=== PATIENT | female | born 1955 | race Caucasian/White ===

== ENCOUNTER 2016-05-06 17:40 | Emergency (ER) | payer BC ==
[2016-05-06 17:55] VITALS: BP 122/83
--- NOTE | 2016-05-06 19:04 | RAD ---
INDICATION: Left hip pain COMPARISON: None TECHNIQUE: A single AP view of the pelvis is submitted. FINDINGS: Osseous structures: No acute fracture SI joints and symphysis: Intact Soft tissues: Normal Other: None IMPRESSION: A single view the pelvis demonstrate no acute fracture. If there is persistent concern suggest routine imaging of the left hip
--- NOTE | 2016-05-06 19:05 | RAD ---
INDICATION: Right knee pain. Fall. COMPARISON: None TECHNIQUE: AP, lateral, tunnel, and sunrise were obtained. FINDINGS: There is tricompartmental osteoarthritic change with spurring about all 3 joint space compartments and joint space narrowing. There is a minor valgus deformity. There is no joint effusion. IMPRESSION: MODERATE TRICOMPARTMENTAL OSTEOARTHRITIC CHANGE.
--- NOTE | 2016-05-06 19:07 | RAD ---
INDICATION: Back pain. Fall. COMPARISON: Lumbar spine November 12, 2007 TECHNIQUE: Routine PA, lateral, and oblique imaging was performed . FINDINGS: Bones: There are no acute bony findings. There are arthritic changes consisting of disc space narrowing at the lower 2 lumbar levels. There is mild progression. Alignment: Normal Disc spaces: The remaining disc spaces are well-maintained Soft tissues: There are no soft tissue abnormalities. IMPRESSION: DEGENERATIVE DISC DISEASE LOWER 2 LUMBAR LEVELS. NO ACUTE FINDINGS
[2016-05-06] MEDS ORDERED: Ketorolac INJ* 60 MG/2 ML VIAL IM ONE (19:12)
--- NOTE | 2016-05-06 19:25 | UC ---
UC General HPI - HPI Summary HPI Summary: YESTERDAY FELL BACKWARDS ON THE ICE; SINCE INJURY PAIN IN BACK, TOP OF LEFT HIP WELL IN RIGHT KNEE. NO BRUISING. NO LOSS OF CONTROL OF BLADDER OR BOWELS, HAD SWELLING IN RIGHT KNEE AFTER INJURY, BUT ABLE TO BEAR WEIGHT. NO HEAD OR NECK TRAUMA. - History of Current Complaint Chief Complaint: UCBackPain Stated Complaint: BACK INJURY Time Seen by Provider: 05/06/16 17:48 Hx Obtained From: Patient Onset/Duration: Sudden Onset, Lasting Hours, Worse Since - TODAY Onset Severity: Moderate Current Severity: Moderate Associated Signs & Symptoms: Positive: Back Pain. Negative: Confusion, Chest Pain, Diarrhea, Dysuria, Fever, Syncope - Allergy/Home Medications Allergies/Adverse Reactions: Allergies Allergy/AdvReac Type Severity Reaction Status Date / Time Sulfa Drugs Allergy Rash Verified 05/06/16 17:47 CT CONTRAST Allergy Vomiting Uncoded 05/06/16 17:47 Home Medications: Home Medications Ibuprofen [Advil] 400 mg PO Q6H PRN 05/06/16 [History Confirmed 05/06/16] Lisinopril [Zestril 10 MG-] 10 mg PO DAILY 05/06/16 [History Confirmed 05/06/16] PMH/Surg Hx/FS Hx/Imm Hx Previously Healthy: Yes Cardiovascular History Of: Reports: Hypertension Denies: Pacemaker/ICD Respiratory History Of: Denies: Asthma GI/ History Of: Denies: Renal Disease Psychological History Of: Reports: Depression Cancer History Of: Reports: Breast Cancer - BILATERAL - Surgical History Surgical History: Yes Surgery Procedure, Year, and Place: BILATERAL KNEE SURGERIES; meniscus tears. LT BREAST LUMPECTOMY. BROKEN FEMUR CHILD METAL TAKEN OUT. Rt SHOULDER - RCT - Family History Known Family History: Positive: Unknown - Social History Occupation: Employed Full-time Lives: With Family Alcohol Use: None Substance Use Type: None Smoking Status (MU): Former Smoker - Immunization History Most Recent Influenza Vaccination: none Review of Systems Constitutional: Negative Skin: Negative Eyes: Negative ENT: Negative Respiratory: Negative Cardiovascular: Negative Gastrointestinal: Negative Genitourinary: Negative Motor: Negative Neurovascular: Negative Musculoskeletal: Arthralgia, Myalgia Neurological: Negative Psychological: Negative All Other Systems Reviewed And Are Negative: Yes Physical Exam Triage Information Reviewed: Yes Appearance: Well-Appearing, No Pain Distress, Well-Nourished Vital Signs: Initial Vital Signs Temp 99.8 F 05/06/16 17:50 Pulse 87 05/06/16 17:50 Resp 16 05/06/16 17:50 BP 122/83 05/06/16 17:50 Pulse Ox 95 05/06/16 17:50 Vital Signs Reviewed: Yes Eye Exam: Normal ENT Exam: Normal ENT: Positive: Normal ENT inspection Dental Exam: Normal Neck exam: Normal Neck: Positive: Supple, Nontender, No Lymphadenopathy. Negative: Nuchal Rigidity, Tenderness @ Respiratory Exam: Normal Respiratory: Positive: Chest non-tender, Lungs clear, Normal breath sounds, No respiratory distress, No accessory muscle use Cardiovascular Exam: Normal Cardiovascular: Positive: RRR, No Murmur, Pulses Normal, Brisk Capillary Refill Abdominal Exam: Normal Abdomen Description: Positive: Nontender, No Organomegaly. Negative: CVA Tenderness (R), CVA Tenderness (L) Musculoskeletal: Positive: Edema @ - RIGHT KNEE, Other: - TENDERNESS AT PARASPINAL MUSCLES OF LSPINE AND LEFT ASIS OF HIP Neurological Exam: Normal Neurological: Positive: Alert, Muscle Tone Normal Psychological Exam: Normal Psychological: Positive: Normal Response To Family Skin Exam: Normal Course/Dx - Differential Dx - Multi-Symptom Differential Diagnoses: Other - TRAUMA, HIP FX, KNEE FRACTURE, LSPINE FRACTURE Provider Diagnoses: LOW BACK STRAIN/DEGENERATIVE DISC DISEASE. LEFT HIP CONTUSION. RIGHT KNEE OSTEOARTRITIS/SPRAIN Discharge - Discharge Plan Condition: Stable Disposition: HOME Prescriptions: Carisoprodol TAB* [Soma TAB*] 350 mg PO TID PRN #12 tab MDD three tabs PRN Reason: Spasms Patient Education Materials: Osteoarthritis (ED), Low Back Strain (ED), Contusion in Adults (ED), Knee Pain (ED), Hip Contusion (ED) Referrals: [facility] [Outside] Yung Ivy MD [Primary Care Provider] - Additional Instructions: PHYSICAL THERAPY REFERRAL: You have been prescribed physical therapy. Treatments may include stretching, exercise, application of heat or cold, and other modalities. After an injury, PT can reduce swelling and pain. In recovery, PT is used to restore mobility and strength. Your specific treatment goals are: ___x__ Reduction of Swelling (EGS, US, ice as needed) ___x__ Pain Reduction (EGS, US, ice as needed) ___x__ TENS Pack Fitting and Instruction Wound Hydrotherapy ___x__ Preservation of Mobility ___x__ Hindu of Mobility ___x__ Strength Hindu ___x__ Work or Sports Hardening This instruction sheet also serves as your PHYSICAL THERAPY REFERRAL! Please take it with you to the therapist, so he/she will be aware of your diagnosis and treatment plan. You may see the physical therapist of your choice for these treatments, but may wish to check with your insurance to be sure the provider you select is covered. It's important to see the doctor to whom you have been referred for follow up.
== END 2016-05-06 19:30 | disposition home or self-care (01) ==
LOC: UCEAST 17:40
DX: S39.012A Strain of muscle, fascia and tendon of lower back, initial encounter (principal); S70.02XA Contusion of left hip, initial encounter; S83.91XA Sprain of unspecified site of right knee, initial encounter; W00.0XXA Fall on same level due to ice and snow, initial encounter; Y93.9 Activity, unspecified; Y92.9 Unspecified place or not applicable; M51.36 Other intervertebral disc degeneration, lumbar region; M17.11 Unilateral primary osteoarthritis, right knee; I10 Essential (primary) hypertension; Z88.2 Allergy status to sulfonamides; Z91.041 Radiographic dye allergy status; Z87.891 Personal history of nicotine dependence
CPT/HCPCS: 72100; 72170; 96372; 99212; G0463; J1885

== ENCOUNTER 2017-07-24 19:56 | Emergency (ER) | payer BC ==
[2017-07-24] MEDS ORDERED: Ondansetron ODT TAB* 4 MG PO ONE (20:53)
[2017-07-24] MEDS ORDERED: Morphine VIAL* 4 MG/ML VIAL (1 ml vial) IV ONE (20:54)
--- NOTE | 2017-07-24 21:13 | RAD ---
HISTORY: Headache, brain thrombus COMPARISONS: MRI dated August 19, 2016 TECHNIQUE: Multiple contiguous axial CT scans were obtained of the head without intravenous contrast. FINDINGS: HEMORRHAGE/INFARCT: There is no hemorrhage or acute infarct. MASSES/SHIFT: There is no mass or shift. EXTRA-AXIAL SPACES: There are no extra-axial fluid collections. SULCI AND VENTRICLES: The sulci and ventricles are normal in size and position for the patient's stated age. CEREBRUM: There are no focal parenchymal abnormalities. BRAINSTEM: There are no focal parenchymal abnormalities. CEREBELLUM: There are no focal parenchymal abnormalities. VESSELS: The vessels are grossly normal. PARANASAL SINUSES: The paranasal sinuses are clear. ORBITS: The orbits are unremarkable. BONES AND SOFT TISSUE: No bone or soft tissue abnormalities are noted. OTHER: None IMPRESSION: NO ACUTE INTRACRANIAL PATHOLOGY.
[2017-07-24 21:39] LABS: ABS Basophils 0 10^3/ul (0-0.2); ABS Eosinophils 0 10^3/ul (0-0.6); ABS Monocytes 0.3 10^3/ul (0-0.8); ABS Neutrophils 4.2 10^3/ul (1.5-7.7); ABS Nucleated RBC 0 10^3/ul; Eosinophil % 0 % (0-6); Hematocrit 43 % (35-47); Hemoglobin 14.6 g/dl (12.0-16.0); Lymphocyte % 17.5 % (25-47); Mean Corpuscular HGB Conc 34 g/dl (31-36); Mean Corpuscular Hemoglobin 31 pg (27-31); Mean Corpuscular Volume 91 fL (80-97); Nucleated Red Blood Cells % 0.1; Platelet Count 145 10^3/ul (150-450); Red Blood Count 4.76 10^6/ul (4.0-5.4); Red Cell Distribution Width 14 % (10.5-15); White Blood Count 5.5 10^3/ul (3.5-10.8)
[2017-07-24 21:48] LABS: INR 1.08 (0.77-1.02)
[2017-07-24 21:54] LABS: EGFR Non-African American 79.3 (>60)
[2017-07-24] MEDS ORDERED: diPHENhydraMINE IV* 50 MG/ML 1 ml VIAL (BENADRYL) IV ONE (22:01)
[2017-07-24] MEDS ORDERED: Ketorolac INJ* 30 MG/ML 1 ML VIAL IV PUSH ONE (22:07)
--- NOTE | 2017-07-24 22:12 | ED ---
Headache - HPI Summary HPI Summary: 61-year-old female presents with headache 2 days. She states is similar to when she had a sinus venous thrombosis. She states this feels the same. She states this is the same intensity as the previous headache. She states she was on warfain for the clot but that she stopped in September. She also admits to low- grade fever. She denies any sinus congestion. No sore throat. no chest pain or SOB. no cough. She admits to nausea but no vomiting. No abdominal pain. She admits to generalized body aches. She has history of peripheral neuropathy. She denies any history of headaches. She denies any neck stiffness. She denies any neck pain. She states the headache is all over. She admits to severe photophobia. no change in vision. She did have a tick exposure a week ago but the tick was not engorged at that time. She has not taken anything for her fever. She takes chronic pain medication. - History Of Current Complaint Chief Complaint: EDHeadache Stated Complaint: SICKNESS/HEADACHE/FEVER Time Seen by Provider: 07/24/17 20:16 - Allergies/Home Medications Allergies/Adverse Reactions: Allergies Allergy/AdvReac Type Severity Reaction Status Date / Time iodine Allergy Rash Verified 07/24/17 20:03 Sulfa (Sulfonamide Allergy Rash Verified 07/24/17 20:03 Antibiotics) CT CONTRAST Allergy Vomiting Uncoded 08/15/16 19:30 Home Medications: Home Medications Ascorbic Acid TAB* [Vitamin C TAB*] 500 mg PO DAILY 07/24/17 [History Confirmed 07/24/17] Calcium Carbonate [Calcium] 500 mg PO DAILY 07/24/17 [History Confirmed 07/24/17 ] Cholecalciferol TAB* [Vitamin D TAB*] 1,000 unit PO DAILY 07/24/17 [History Confirmed 07/24/17] Cyanocobalamin TAB* [Vitamin B12 TAB*] 500 mcg PO DAILY 07/24/17 [History Confirmed 07/24/17] Cyclosporine 0.05% OPHTH (NF) [Restasis 0.05% OPHTH] 1 drop BOTH EYES BID [History Confirmed 07/24/17] DULoxetine DR CAP* [Cymbalta CAP*] 90 mg PO DAILY 07/24/17 [History Confirmed ] Gabapentin CAP(*) [Neurontin 300 CAP(*)] 600 mg PO DAILY 07/24/17 [History Confirmed 07/24/17] Omeprazole CAP* [Prilosec CAP* 20 MG] 20 mg PO BID 07/24/17 [History Confirmed 07/24/17] amLODIPine TAB* [Norvasc 5 mg TAB*] 2.5 mg PO DAILY 07/24/17 [History Confirmed 07/24/17] oxyCODONE TAB* [Roxycodone TAB 5 mg*] 5 - 10 mg PO Q4H PRN MDD 6 tablets [History Confirmed 07/24/17] PMH/Surg Hx/FS Hx/Imm Hx Endocrine/Hematology History: Reports: Hx Anticoagulant Therapy - not currently Cardiovascular History: Reports: Hx Hypertension Denies: Hx Pacemaker/ICD Respiratory History: Denies: Hx Asthma History: Denies: Hx Renal Disease Musculoskeletal History: Reports: Other Musculoskeletal History - bilat knee surgery Sensory History: Denies: Hx Cataracts, Hx Contacts or Glasses, Hx Hearing Aid Opthamlomology History: Denies: Hx Cataracts, Hx Contacts or Glasses Neurological History: Reports: Other Neuro Impairments/Disorders - peripheral neuropathy Psychiatric History: Reports: Hx Depression Denies: Hx Panic Disorder - Cancer History Cancer Type, Location and Year: Lt BREAST CARCINOMA 2002 & LUMPECTOMY Hx Chemotherapy: No - TAMAXOFIN ( NO LONGER TAKING) Hx Radiation Therapy: No - Surgical History Surgery Procedure, Year, and Place: BILATERAL KNEE SURGERIES; meniscus tears. LT BREAST LUMPECTOMY. BROKEN FEMUR CHILD METAL TAKEN OUT. Rt SHOULDER - RCT Infectious Disease History: No Infectious Disease History: Denies: Traveled Outside the [place] in Last 30 Days - Family History Known Family History: Positive: Unknown - Social History Alcohol Use: None Hx Substance Use: No Substance Use Type: Reports: Cocaine Hx Tobacco Use: Yes Smoking Status (MU): Former Smoker Review of Systems Positive: Fever, Chills, Fatigue Positive: Photophobia Negative: Chest Pain Negative: Shortness Of Breath Positive: Headache All Other Systems Reviewed And Are Negative: Yes Physical Exam Triage Information Reviewed: Yes Vital Signs On Initial Exam: Initial Vitals Temp Pulse Resp BP Pulse Ox 97.9 F 90 16 118/77 99 07/24/17 19:59 07/24/17 19:59 07/24/17 19:59 07/24/17 19:59 07/24/17 19:59 Vital Signs Reviewed: Yes Appearance: Positive: Pain Distress Skin: Positive: Warm, Dry Head/Face: Positive: Normal Head/Face Inspection Eyes: Positive: Normal, EOMI, FELIX, Conjunctiva Clear ENT: Positive: Normal ENT inspection, Pharynx normal, TMs normal Respiratory/Lung Sounds: Positive: Clear to Auscultation, Breath Sounds Present Cardiovascular: Positive: Normal, RRR Abdomen Description: Positive: Nontender, Soft Bowel Sounds: Positive: Present Musculoskeletal: Positive: Normal Neurological: Positive: Sensory/Motor Intact, Alert, Oriented to Person Place, Time, CN Intact II-III, Finger to Nose Psychiatric: Positive: Normal - Harmony Coma Scale Best Eye Response: 4 - Spontaneous Best Motor Response: 6 - Obeys Commands Best Verbal Response: 5 - Oriented Coma Scale Total: 15 Diagnostics - Vital Signs Vital Signs Temp Pulse Resp BP Pulse Ox 07/24/17 21:27 85 120/86 95 07/24/17 21:26 87 93 07/24/17 21:11 16 07/24/17 19:59 97.9 F 90 16 118/77 99 - Laboratory Lab Results: Lab Results 07/24/17 07/24/17 07/24/17 Range/Units 21:20 21:20 21:21 WBC 5.5 (3.5-10.8) 10^3/ul RBC 4.76 (4.0-5.4) 10^6/ul Hgb 14.6 (12.0-16.0) g/dl Hct 43 (35-47) % MCV 91 (80-97) fL MCH 31 (27-31) pg MCHC 34 (31-36) g/dl RDW 14 (10.5-15) % Plt Count 145 L (150-450) 10^3/ul MPV 8.0 (7.4-10.4) um3 Neut % (Auto) 76.3 (38-83) % Lymph % (Auto) 17.5 L (25-47) % [place] % (Auto) 5.6 (0-7) % Eos % (Auto) 0 (0-6) % Baso % (Auto) 0.6 (0-2) % Absolute Neuts (auto) 4.2 (1.5-7.7) 10^3/ul Absolute Lymphs (auto) 1.0 (1.0-4.8) 10^3/ul Absolute Monos (auto) 0.3 (0-0.8) 10^3/ul Absolute Eos (auto) 0 (0-0.6) 10^3/ul Absolute Basos (auto) 0 (0-0.2) 10^3/ul Absolute Nucleated RBC 0 10^3/ul Nucleated RBC % 0.1 INR (Anticoag Therapy) 1.08 H (0.77-1.02) APTT 40.5 H (26.0-36.3) seconds Sodium (139-145) mmol/L Potassium (3.5-5.0) mmol/L Chloride (101-111) mmol/L Carbon Dioxide (22-32) mmol/L Anion Gap (2-11) mmol/L BUN (6-24) mg/dL Creatinine (0.51-0.95) mg/dL Est GFR ( Amer) (>60) Est GFR (Non-Af Amer) (>60) BUN/Creatinine Ratio (8-20) Glucose (70-100) mg/dL Lactic Acid 1.4 (0.5-2.0) mmol/L Calcium (8.6-10.3) mg/dL Total Bilirubin (0.2-1.0) mg/dL AST (13-39) U/L ALT (7-52) U/L Alkaline Phosphatase (34-104) U/L C-Reactive Protein (< 5.00) mg/L Total Protein (6.4-8.9) g/dL Albumin (3.2-5.2) g/dL Globulin (2-4) g/dL Albumin/Globulin Ratio (1-3) Influenza A (Rapid) (Negative) Influenza B (Rapid) (Negative) 07/24/17 07/24/17 Range/Units 21:21 21:28 WBC (3.5-10.8) 10^3/ul RBC (4.0-5.4) 10^6/ul Hgb (12.0-16.0) g/dl Hct (35-47) % MCV (80-97) fL MCH (27-31) pg MCHC (31-36) g/dl RDW (10.5-15) % Plt Count (150-450) 10^3/ul MPV (7.4-10.4) um3 Neut % (Auto) (38-83) % Lymph % (Auto) (25-47) % [place] % (Auto) (0-7) % Eos % (Auto) (0-6) % Baso % (Auto) (0-2) % Absolute Neuts (auto) (1.5-7.7) 10^3/ul Absolute Lymphs (auto) (1.0-4.8) 10^3/ul Absolute Monos (auto) (0-0.8) 10^3/ul Absolute Eos (auto) (0-0.6) 10^3/ul Absolute Basos (auto) (0-0.2) 10^3/ul Absolute Nucleated RBC 10^3/ul Nucleated RBC % INR (Anticoag Therapy) (0.77-1.02) APTT (26.0-36.3) seconds Sodium 134 L (139-145) mmol/L Potassium 3.2 L (3.5-5.0) mmol/L Chloride 100 L (101-111) mmol/L Carbon Dioxide 26 (22-32) mmol/L Anion Gap 8 (2-11) mmol/L BUN 10 (6-24) mg/dL Creatinine 0.74 (0.51-0.95) mg/dL Est GFR ( Amer) 101.9 (>60) Est GFR (Non-Af Amer) 79.3 (>60) BUN/Creatinine Ratio 13.5 (8-20) Glucose 158 H (70-100) mg/dL Lactic Acid (0.5-2.0) mmol/L Calcium 9.0 (8.6-10.3) mg/dL Total Bilirubin 0.40 (0.2-1.0) mg/dL AST 18 (13-39) U/L ALT 12 (7-52) U/L Alkaline Phosphatase 57 (34-104) U/L C-Reactive Protein 18.20 H (< 5.00) mg/L Total Protein 6.3 L (6.4-8.9) g/dL Albumin 3.8 (3.2-5.2) g/dL Globulin 2.5 (2-4) g/dL Albumin/Globulin Ratio 1.5 (1-3) Influenza A (Rapid) Negative (Negative) Influenza B (Rapid) Negative (Negative) Result Diagrams: 07/24/17 21:21 07/24/17 21:21 Lab Statement: Any lab studies that have been ordered have been reviewed, and results considered in the medical decision making process. - Additional Comments Diagnostic Additional Comments: MRI no hemorrhage, mass or acute infarct. Normal flow void center of venous sinuses. Re-Evaluation - Re-Evaluation First Eval Re-Evaluation Time: 10:20 Change: Improved Comment: pain has decreased Headache Course/Dx - Course Course Of Treatment: 61-year-old female presents with headache 2 days. She states is similar to when she had a sinus venous thrombosis. She states this feels the same. She states this is the same intensity as the previous headache. She states she was on warfain for the clot but that she stopped in September. She also admits to low-grade fever. She denies any sinus congestion. No sore throat. no chest pain or SOB. no cough. She admits to nausea but no vomiting. No abdominal pain. She admits to generalized body aches. She has history of peripheral neuropathy. She denies any history of headaches. She denies any neck stiffness. She denies any neck pain. She states the headache is all over. She admits to severe photophobia. no change in vision. She did have a tick exposure a week ago but the tick was not engorged at that time. She has not taken anything for her fever. She takes chronic pain medication. On exam has normal neuro exam. CT brain normal. Lab work normal. Do not suspect meningitis has full range of motion of neck. We'll get MRV to rule out sinus thrombosis. Discussed case with Dr. Peralta. MRI normal. MRV normal. will send home to follow up with primary. will have return to ED if develop any neck stiffness. patient understand and agrees with plan. - Diagnoses Differential Diagnosis/HQI/PQRI: Migraine, Subarachnoid Hemorrhage, Tension Headache, Viral Syndrome Provider Diagnoses: Headache Discharge - Sign-Out/Discharge Documenting (check all that apply): Discharge/Admit/Transfer - Discharge Plan Condition: Good Disposition: HOME Patient Education Materials: General Headache (ED) Referrals: Yung Ivy MD [Primary Care Provider] - Additional Instructions: Take Tylenol or ibuprofen every 6 hours for headache Take zofran every 6 hours as needed for nausea Follow up with primary within 5 days Return to ED if develop neck stiffness or any new or worsening symptoms - Billing Disposition and Condition Condition: GOOD Disposition: HOME
[2017-07-25] MEDS ORDERED: NS 0.9% 1000 ML* 1,000 ML IV ONE
[2017-07-25] MEDS ORDERED: Morphine VIAL* 4 MG/ML VIAL (1 ml vial) IV ONE (00:52)
[2017-07-25] MEDS ORDERED: O ndansetron ODT 4MG 2TAB PRPK 4 MG PAK PO ONE (00:54)
[2017-07-25 01:57] VITALS: BP 98/66
--- NOTE | 2017-07-25 07:11 | RAD ---
INDICATION: Headache, history of sinus venous thrombosis. COMPARISON: Comparison is made with a prior MRI of the brain from August 19, [address] of the brain from July 24, 2017. TECHNIQUE: Sagittal T1, axial T1, T2, susceptibility, FLAIR and diffusion weighted images were obtained. FINDINGS: The ventricles, cisterns and sulci appear to be within normal limits. No significant focal abnormality or mass effect is seen. No areas of restricted diffusion are present. There is no evidence for infarct or hemorrhage. The dural venous sinuses appear patent. There is dolichoectasia of the basilar artery. The visualized portion of the paranasal sinuses and mastoid air cells appear clear. IMPRESSION: NO EVIDENCE FOR ACUTE INTRACRANIAL ABNORMALITY.
--- NOTE | 2017-07-25 07:43 | RAD ---
INDICATION: Headache, history of sinus venous thrombosis. COMPARISON: Comparison is made with a prior MRV study from August 19, 2016. TECHNIQUE: A magnetic resonance venogram of the brain was performed. Images were reconstructed in the maximum intensity projection format. FINDINGS: There appears to be an intraluminal filling defect present in the posterior aspect of the superior sagittal sinus as well as within the proximal adjacent right transverse sinus which appears unchanged from the prior study suggestive of thrombus within the sinuses without occlusion. The results of this exam were called to the emergency department charge nurse Negra. IMPRESSION: POSSIBLE NONOCCLUSIVE THROMBUS WITHIN THE POSTERIOR ASPECT OF THE SUPERIOR SAGITTAL SINUS AND ADJACENT RIGHT TRANSVERSE SINUS, UNCHANGED FROM THE PRIOR STUDY.
--- NOTE | 2017-07-25 08:56 | CONSULT ---
Consult Consult: Dr. 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 The original read was negative. I spoke with Dr. Umanzor who recommended a full strength aspirin a day and F/U with Dr. Umanzor this coming week. I called Ms. Bullard who was still suffering from a severe headache. I told her the plan and recommended that she also return to the ED so that I could try to get her better pain control. She is quite unhappy with the care so far and didn't want to return. She requested that I have Dr. Umanzor call and I passed on that request.
== END 2017-07-25 02:01 | disposition home or self-care (01) ==
LOC: ED 19:56
DX: R51 Headache (principal); R11.0 Nausea; R50.9 Fever, unspecified; R53.83 Other fatigue
CPT/HCPCS: 36415; 70450; 70544; 70551; 80053; 83605; 85025; 85610; 85730; 86140; 86618; 87040; 87502; 96374; 96375; 99284; 99285; A9270-GY; J1200; J1885; J2270

== ENCOUNTER 2017-07-25 10:02 | Observation (INO) | payer BC ==
[2017-07-25] MEDS ORDERED: Morphine VIAL* 4 MG/ML VIAL (1 ml vial) IV ONE (10:48)
[2017-07-25] MEDS: NS 0.9% 1000 ML* 2,000 ML IV ONE (11:04)
[2017-07-25 11:13] LABS: ABS Basophils 0 10^3/ul (0-0.2); ABS Eosinophils 0 10^3/ul (0-0.6); ABS Lymphocytes 0.6 10^3/ul (1.0-4.8); ABS Monocytes 0.3 10^3/ul (0-0.8); ABS Neutrophils 3.7 10^3/ul (1.5-7.7); ABS Nucleated RBC 0 10^3/ul; Eosinophil % 0.1 % (0-6); Hematocrit 43 % (35-47); Hemoglobin 14.3 g/dl (12.0-16.0); Lymphocyte % 13.9 % (25-47); Mean Corpuscular HGB Conc 34 g/dl (31-36); Mean Corpuscular Hemoglobin 30 pg (27-31); Mean Corpuscular Volume 90 fL (80-97); Mean Platelet Volume 8.1 um3 (7.4-10.4); Nucleated Red Blood Cells % 0; Platelet Count 112 10^3/ul (150-450); Red Blood Count 4.75 10^6/ul (4.0-5.4); Red Cell Distribution Width 14 % (10.5-15); White Blood Count 4.7 10^3/ul (3.5-10.8)
[2017-07-25 11:34] LABS: EGFR Non-African American 90.5 (>60)
[2017-07-25 11:35] LABS: INR 0.98 (0.77-1.02)
[2017-07-25] MEDS ORDERED: HYDROmorphone INJ* 2 MG/ML CARPUJECT SYRINGE IV SLOW PU ONE (11:55)
[2017-07-25] MEDS: HYDROmorphone INJ* 2 MG/ML CARPUJECT SYRINGE IV SLOW PU PRN ×2 (14:54→19:17)
[2017-07-25] MEDS ORDERED: Ondansetron ODT TAB* 4 MG SL PRN (15:02)
[2017-07-25] MEDS ORDERED: predniSONE TAB* 50 MG PO SCH (16:00)
[2017-07-25] MEDS ORDERED: predniSONE TAB* 50 MG PO ONE ×4 (16:00→22:00)
[2017-07-25] MEDS: Ketorolac INJ* 30 MG/ML 1 ML VIAL IV PUSH PRN ×2 (16:14→22:03)
--- NOTE | 2017-07-25 16:37 | CONS ---
CC: Dr. Ivy NEUROLOGY CONSULTATION: DATE OF CONSULT: 07/25/17 LOCATION: She is in the emergency room. REFERRING PROVIDER: Dr. Middleton. CHIEF COMPLAINT: Headache. HISTORY OF PRESENT ILLNESS: Clotilde Bullard is a 61-year-old woman, known to me from a prior evaluation in 2017 for a severe headache. I saw her in consultation on 08/18/16 when she presented with a fever, nausea and vomiting, and a bad headache. She had chills and sweats as well. She developed severe headache with photophobia and ended up coming into the emergency room. She had an MR venogram of the brain interpreted as showing a linear filling defect in the posterior portion of the superior sagittal sinus as well as in the right transverse sigmoid confluence. The interpretation was suggestive of a thrombus within the venous system without occlusion. She was treated for her headaches and started on Coumadin over the subsequent hospitalization. She had a workup for hypercoagulable state, which was notable for normal protein C, protein S, antithrombin III, negative Leiden factor V mutation, negative lupus anticoagulant. She was anticoagulated for 3 months with Coumadin and saw Dr. Juan Ramirez of stroke unit at the [facility] in August of 2016 and then 3 months later in November. She had an MR venogram at the [facility], which I was able to review the report that Dr. Middleton had obtained. It was interpreted as showing similar filling defect from the July 2016 study, but review of images suggested that it was an artifact rather than a cerebral vein thrombosis and so the final interpretation was no evidence of cerebral vein thrombosis. She saw Dr. Ramirez in followup after that and Coumadin was discontinued. She was fine until just the last few days. On , she started to feel a headache as she was out walking. It intensified through the course of the day such that by the evening she had photophobia and a pretty severe headache. She developed fever and chills the following day and had a temperature measured of 101. She was using a heating pad when it was 80 degrees out. The headache intensified and she had no appetite and has not had anything to eat for at least 3 days. She presented to the emergency room yesterday and had an MRI of the brain interpreted as normal. I reviewed the images and I agree. She had an MR venogram interpreted by the [facility] as normal, but interpreted by Dr. Fischer on review this morning as showing a filling defect unchanged from a year ago. The patient ended up presenting back to the emergency room today after she was informed of the change in read. She has noted a little bit of sore throat, but no vomiting. She has not had any runny nose. She denies back pain or neck stiffness. She has not been eating, but there has not been any diarrhea or vomiting. She has not been taking anything extra for her headaches at home, but she takes 6 tabs of oxycodone per day for her painful sensory neuropathy. She has received hydromorphone here and it diminishes the severity of her headache, but she is still very photophobic and is still pounding. She has not taken anything for nausea. PAST MEDICAL HISTORY: Notable for painful idiopathic sensory neuropathy. She has been followed by Dr. Mya for a number of years and been consulted at the [facility] as well. She had seen pain treatment specialists at [facility] as well and I believe they were trying to taper her off of opioids according to a consultation from Dr. Garcia up at the and Dr. May's in our office notes. She has a history of osteoporosis. She has a history of hypertension as well. MEDICATIONS: At home consist of: 1. Oxycodone 5 mg up to 6 tablets per day. 2. Amlodipine 2.5 mg p.o. q. day. 3. Omeprazole 20 mg p.o. q. day. 4. Gabapentin 600 mg p.o. q. day. 5. Cymbalta 90 mg p.o. q. day. 6. Vitamin B12 tablets 500 mcg p.o. q. day. 7. Vitamin D 1000 units p.o. q. day. 8. Fosamax 70 mg p.o. q. week. ALLERGIES: She is allergic to SULFA DRUGS. She is said to be allergic to CT CONTRAST with hives, but she said she just had vomiting. FAMILY HISTORY: Notable for both parents having had strokes. SOCIAL HISTORY: She is a retired teacher. REVIEW OF SYSTEMS: Notable for a remote history of migraines when she was a teenager. She has not had any headaches otherwise between this event and the one a year ago. She has not been exposed to any sick people that she is aware of. She occasionally subs as a teacher, but not in the past week. She is a nonsmoker. There is no history of cardiac disease, diabetes, or recent pulmonary problems. She has been drinking fluids, but not eating lately. She has not had any diarrhea or abdominal pain. PHYSICAL EXAMINATION: She is very photophobic, but alert and able to give a good coherent history. Temperature 98.1 orally, blood pressure running about 130 to 140 systolic over 80 to 86 diastolic, heart rate is in the 80s and regular. Respiratory rate is 16 and oxygen saturation is 96% on room air. Neck is supple. Lungs are clear bilaterally. Skin is warm and dry. Heart is in a regular rhythm without murmurs. There are no cervical bruits and no cervical adenopathy. Oral mucosa is moist and I do not see any erythema or trauma. Straight leg raising is negative. Neurological Exam: Pupils are small at about 2.5 mm, reacting to light to 2 mm. Funduscopic exam is done with a blue light and I could just see her left disc and it looked sharp. I could not get a good look at her right disc and again it was quite uncomfortable for her to be examined which limited the exam. There was no ptosis. Eye movements are full. Facial musculature is symmetric. Facial sensation is symmetric. Speech is clear. Motor exam reveals normal tone and strength in the limbs proximally and distally. There is no drift of any limbs. There is no tremor. Finger taps are normal in the hands. Sensory exam to vibration is intact in all limbs. Sensory exam to light touch is intact in the face and hands. Reflexes are hypoactive, but present other than absent ankle reflexes. Plantar responses are flexor bilaterally. I did not attempt to ambulate her. She is alert and oriented to person, place, and time. She has intact recent and remote memory. She has good attention, concentration, and fund of knowledge. Language is fluent. DIAGNOSTIC STUDIES/LAB DATA: Laboratory data includes the neuro imaging. Also CBC is notable for a platelet count of 112,000, which is low for her. It was 145,000 yesterday and 270,000 last year. Her white blood cell count is just 4.7. INR today is normal at 0.98, PTT at 35.8. Her hypercoagulation workup from 08/20/16 is in the chart and reviewed. Chemistry profile today notable for a sodium of 135 and potassium of 3.4 and otherwise is a normal chemistry profile. Liver enzymes are normal. BUN is 11 and creatinine 0.66. Her CRP was elevated yesterday at 18.2, it was borderline elevated in 2017 at 5.06. She had a negative influenza A and B rapid test yesterday. She had a negative prothrombin gene mutation back on 08/20/16. IMPRESSION AND PLAN: Impression is that of a possible cerebral vein thrombosis versus normal variant or artifact. It is nonocclusive on any of the images, so it seems unlikely that it is a cause of her severe headache. As of last year and this year, she has signs and symptoms suggestive of a probable viral infection and I think that is the more likely cause of her severe headache. I spoke with Dr. Middleton, who has consulted Stroke Neurology at the [facility]. The decision has been made to keep her here for a CT venogram. She needs to be premedicated because of her history of an allergy. Meanwhile, she should be kept hydrated and I would recommend treating her with antiplatelet therapy with aspirin alone at this point. She should be given adequate opioid analgesia to control her pain. She is almost certainly somewhat opioid tolerant from her treatment of her neuropathy at home. If the CT venogram does suggest an actual venous thrombus, then she will likely need anticoagulation again. I will follow her and await the results of her CT venogram and further discussion with [facility]. I have discussed my impression with Dr. Kelley as well as the patient and answered numerous questions for her and her friend, who accompanies her. [id number]/[facility] #: [id number] [place]
[2017-07-25] MEDS: Aspirin TAB* 325 MG PO SCH (16:40)
[2017-07-25] MEDS ORDERED: Iohexol 350* (CONTRAST) 500 ML MDV IV ONE (17:07)
[2017-07-25] MEDS: oxyCODONE/Acetamin 5/325 MG* TAB PO PRN ×2 (17:43→23:38)
--- NOTE | 2017-07-25 18:31 | HP ---
CC: Dr. Ivy * [facility] MEDICINE HISTORY AND PHYSICAL: DATE OF ADMISSION: 07/25/17 ATTENDING PHYSICIAN: Dr. Sabine Taylor * (dictation provided by Obdulia Vaughan NP ). CHIEF COMPLAINT: Headache. HISTORY OF PRESENT ILLNESS: Ms. Bullard is a 61-year-old female with a past medical history of suspected sinus venous thrombosis, hypertension, breast cancer, hyperlipidemia, anxiety and depression, who presents to the hospital today with new-onset headache. Ms. Bullard states that she last had severe headache back in July 2016, at which time she was evaluated here at our hospital and thought to have a sinus venous thrombosis. She ultimately went for evaluation at the [facility] where she was evaluated and treated with anticoagulants. The diagnosis was apparently not straightforward and there was suspicion that perhaps she had a postviral headache as she had a related fever and malaise. Regardless, she did receive treatment with anticoagulation and had a repeat MRV on 12/02/16 which showed no venous thrombosis. The patient states she has been well since then. She has had no severe headaches. On of this past week, she had the sudden onset again of a severe headache. She describes it as being involving her whole head. It was initially associated with a fever and malaise. The fever was as high as 101.2. The malaise and fever have gone away, but she continues to have this excruciating headache with photophobia. She states the headache is unremitting and that nothing has helped it prior to coming into the emergency room. She was evaluated last evening with an MRV of the head, which initially read by the overnight radiologist as showing no venous thrombo and she was discharged to home. However, in the morning the day radiologist, Dr. Fischer, thought that there was a possible nonocclusive thrombus within the posterior aspect of the superior sagittal sinus and adjacent right transverse sinus. For that reason, the patient was called back to the emergency room. The patient has been seen by Dr. Umanzor in the ED, who recommends that she have a CTA with venogram. However, the patient will require premedication for 13 hours prior to the study due to her history of IODINATED CONTRAST DYE allergy. Other than this, Ms. Bullard has had labs, which are unremarkable. She is requiring Dilaudid intermittently for pain, but states she would also be interested in trying Toradol as that had been helpful for her in the past. PAST MEDICAL HISTORY: 1. Hypertension. 2. Breast cancer, treated by Dr. Vasquez. 3. Hyperlipidemia. 4. Anxiety and depression. 5. Peripheral neuropathy. 6. GERD. 7. History of sinus venous thrombosis in 2017. MEDICATIONS: 1. Alendronate 70 mg p.o. daily. 2. Cyclosporine 0.05% ophthalmically 1 drop both eyes b.i.d. 3. Oxycodone 5 to 10 mg p.o. q.4 hours p.r.n. 4. Amlodipine 2.5 mg p.o. daily. 5. Ascorbic acid 500 mg p.o. daily. 6. Calcium carbonate 500 mg p.o. daily. 7. Cholecalciferol 1000 units p.o. daily. 8. Cyanocobalamin 500 mcg p.o. daily. 9. Duloxetine DR 90 mg p.o. daily. 10. Gabapentin 300 mg p.o. at bedtime. 11. Omeprazole 20 mg p.o. daily. ALLERGIES: To IODINE and SULFA. FAMILY HISTORY: Both parents related to CVA. SOCIAL HISTORY: No report of alcohol, tobacco or drug use. 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 REVIEW OF SYSTEMS: A 14-point review of systems was completed with Ms. Bullard and all those not mentioned above were negative. PHYSICAL EXAMINATION GENERAL: Ms. Bullard is lying in the bed in the dark with friend at the bedside. She is in no acute distress. VITAL SIGNS: Temperature 98.1, pulse rate 75, respiratory rate 15, blood pressure 130/84. LUNGS: Clear to auscultation bilaterally with no accessory muscle use and good aeration. HEART: S1, S2. No murmur, rub, or gallop and regular. ABDOMEN: Soft, nontender with bowel sounds positive x4. EXTREMITIES: No cyanosis or edema. NEURO: She is alert. She is oriented x3. She moves all extremities equally. There is no facial asymmetry or focal weakness. Extraocular movements are intact. Pupils are equal and reactive to light. SKIN: Intact. DIAGNOSTIC STUDIES/LAB DATA: Sodium 135, potassium 3.4, chloride 102, serum bicarbonate 26, BUN 11, creatinine 0.66, glucose 97. WBC 4.7, hemoglobin 14.3, hematocrit 43, platelet count 112. INR is 0.98. On 07/24/17, the patient had MRV of the head without contrast, which showed possible nonocclusive thrombus within the posterior aspect of the superior sagittal sinus and adjacent right transverse sinus unchanged from prior study, compared with the study from July 2016. ASSESSMENT AND PLAN: Ms. Bullard is a 61-year-old female with a past medical history of suspected sinus venous thrombosis, status post treatment with 3 months of anticoagulation as well as hypertension, breast cancer, hyperlipidemia , anxiety and depression, who presents to the hospital today with concern for return headache very similar to previous history with sinus venous thrombosis. Our plans are for observation in the hospital for the followin. Headache: Her headache from her perspective is very consistent with her previous history of suspected sinus venous thrombosis. The radiologist has read concern for possible thrombus in the sinuses again today. Dr. Umanzor has seen the patient in consultation. From his perspective, it is unclear whether that this represents an acute thrombus versus artifact. At this point, he recommends that the patient be anticoagulated only with aspirin 325 mg as he thinks that there is a low likelihood for thrombus. Given her associated viral type syndrome with the onset of this headache, it is again more likely to be a postviral syndrome headache. In terms of further workup for the sinus venous thrombosis, the patient will be going for a CT venogram of her head, but she will need premedication, which has been ordered with prednisone and Benadryl over the next 13 hours. In the meantime, the patient will have neurological checks q.2. She will have Dilaudid and Toradol for pain. 2. Hypertension. Continue amlodipine. 3. Gastroesophageal reflux disease. Continue omeprazole. 4. DVT prophylaxis with heparin subcu. 5. Code status is full code. TIME SPENT: Approximately 60 minutes were spent in the admission of this patient, more than half of the time was spent with the patient at the bedside reviewing the events leading up to this hospitalization, performing the physical examination and reviewing my plan of care. OBDULIA VAUGHAN, KEYONNA [id number]/[facility] #: [id number] [place]
[2017-07-25] MEDS ORDERED: amLODIPine TAB* 5 MG PO ONE (19:29)
[2017-07-25] MEDS: Heparin VIAL(*) 5000 UNITS/ML VIAL (FIVE THOUSAND) SUBCUT SCH (20:19)
[2017-07-25] MEDS ORDERED: NS 0.9% 1000 ML* 1,000 ML IV SCH (20:30)
[2017-07-25] MEDS ORDERED: Gabapentin CAP(*) 300 MG PO SCH (21:00)
--- NOTE | 2017-07-26 00:49 | ED ---
Alf Aden Tecjoon, scribed for Jeanette Middleton MD on 07/25/17 at 1053 . Headache - HPI Summary HPI Summary: This patient is a 61 year old female presenting to [facility] with a chief complaint of headache since approx. 2 days ago. Patient has seen Dr. Ramirez at [facility] 07/2016, and was taking Coumadin for a venous sinus thrombosis in the setting of influenza and dehydration. Patient also received an MRI/MRV at this time. Coumadin was DC'd 11/[address] Ramirez when pt had an MRV in [place] that was read as negative. Patient was seen last night for severe CHACKO, had an CT and MRI/MRV, and was dx with a nonocclusive thrombus on re-read of the MRV by Dr. Fischer this am. Pt had received morphine overnight and was DC'd home. Dr. Galaviz called the pt to check on her (see consult note from this am), and advised her of the re-read, and pt still had pain, so Dr. Galaviz advised the pt to return to the ED, so she represents at this time, still with headache. Dr. Galaviz also called Dr. Umanzor regarding the pt when he received the report from Dr. Fischer. The pain is described as the worst headache in the world. The pain is rated 10/10 in severity and does not radiate. Patient states that her pain is exactly the same as the last time she had her thrombosis. Symptoms aggravated by bright lights. Symptoms alleviated by nothing. Patient additionally reports blurry vision. Patient denies neck pain, numbness, tingling , or slurred speech. No fever. Influenza swab was negative last pm. Pt has chronic idiopathic peripheral neurpathy followed by Dr. May. She had a coagulation profile at 01/06/[address] Ivy that was negative. - History Of Current Complaint Chief Complaint: EDHeadache Stated Complaint: HEADACHE/DIZZINESS Time Seen by Provider: 07/25/17 10:12 Hx Obtained From: Patient, Other: - friend Martha is with pt Onset/Duration: Sudden Onset, Started days ago, Still Present Initially Headache Was: "Worst Headache Ever" Currently Pain Is: Current Pain Scale(0-10)= - 10, Severe Timing: Constant Character: Sharp Location of Headache: Diffuse Radiates to: N/A Aggravating Factor: Bright Lights Allevating Factors: Nothing Associated Signs And Symptoms: Negative - neck pain, numbness, tingling, or slurred speech, or fever, Other (Noted In Comments) - blurry vision Related History: Similar Episode/DX As: - sinus thrombosis last spring - Allergies/Home Medications Allergies/Adverse Reactions: Allergies Allergy/AdvReac Type Severity Reaction Status Date / Time iodine Allergy Rash Verified 07/24/17 20:03 Sulfa (Sulfonamide Allergy Rash Verified 07/24/17 20:03 Antibiotics) CT CONTRAST Allergy Vomiting Uncoded 08/15/16 19:30 Home Medications: Home Medications Alendronate (NF) [Fosamax (NF)] 70 mg PO WEEKLY 07/25/17 [History Confirmed 08/07] PMH/Surg Hx/FS Hx/Imm Hx Previously Healthy: No Endocrine/Hematology History: Reports: Hx Anticoagulant Therapy - was on warfarin 07/2016-11/2016, DC'd by Dr. Ramirez Cardiovascular History: Reports: Hx Hypertension Denies: Hx Pacemaker/ICD Respiratory History: Denies: Hx Asthma History: Denies: Hx Renal Disease Musculoskeletal History: Reports: Other Musculoskeletal History - bilat knee surgery Sensory History: Denies: Hx Cataracts, Hx Contacts or Glasses, Hx Hearing Aid Opthamlomology History: Denies: Hx Cataracts, Hx Contacts or Glasses Neurological History: Reports: Hx Peripheral Neuropathy Psychiatric History: Reports: Hx Depression Denies: Hx Panic Disorder - Cancer History Cancer Type, Location and Year: Lt BREAST CARCINOMA 2002 & LUMPECTOMY Hx Chemotherapy: No - TAMOXIFEN ( NO LONGER TAKING) Hx Radiation Therapy: No - Surgical History Surgery Procedure, Year, and Place: BILATERAL KNEE SURGERIES; meniscus tears. LT BREAST LUMPECTOMY. BROKEN FEMUR CHILD METAL TAKEN OUT. Rt SHOULDER - RCT Infectious Disease History: No Infectious Disease History: Denies: Traveled Outside the [place] in Last 30 Days - Family History Known Family History: Positive: Other - brain aneurysm in grandmother - Social History Alcohol Use: None Hx Substance Use: No Substance Use Type: Reports: None Hx Tobacco Use: Yes Smoking Status (MU): Former Smoker Review of Systems Negative: Fever Positive: Blurred Vision Cardiovascular: Negative Respiratory: Negative Gastrointestinal: Negative Musculoskeletal: Negative - neck pain Skin: Negative Positive: Headache. Negative: Paresthesia, Numbness, Slurred Speech Psychological: Normal All Other Systems Reviewed And Are Negative: Yes Physical Exam - Summary Physical Exam Summary: Appearance: Ill-appearing, moderate to severe pain distress, Well-nourished, afebrile Skin: Warm, color reflects adequate perfusion Head: Normal Head/Face inspection, atraumatic Eyes: Conjunctiva clear, photophobic, has mask covering eyes. Fundi: unable to visualize due to photophobia ENT: Normal inspection, pharynx clear Neck: Supple, no nodes, no JVD, good chin to chest Respiratory: Lungs clear, Normal breath sounds, no respiratory distress Cardio: RRR, No murmur, pulses normal, brisk capillary refill Abdomen: soft, nontender Bowel sounds: present Musculoskeletal: Strength Intact/ ROM intact. No calf tenderness. No edema. Psychological: Normal Neuro: Alert, CN II-XII intact, Motor 5/5 intact, Sensation decreased light touch bilat lower extremities, Reflexes 2+ symmetric, nl heel to cummings. NIH 0. GCS 15. Triage Information Reviewed: Yes Vital Signs On Initial Exam: Initial Vitals Temp Pulse Resp BP Pulse Ox 98.1 F 88 16 122/82 96 07/25/17 10:05 07/25/17 10:05 07/25/17 10:05 07/25/17 10:05 07/25/17 10:05 Vital Signs Reviewed: Yes Diagnostics - Vital Signs Vital Signs Temp Pulse Resp BP Pulse Ox 07/25/17 10:23 85 94 07/25/17 10:22 88 139/88 94 07/25/17 10:05 98.1 F 88 16 122/82 96 - Laboratory Lab Results: Lab Results 07/25/17 07/25/17 07/25/17 Range/Units 11:02 11:02 11:02 WBC 4.7 (3.5-10.8) 10^3/ul RBC 4.75 (4.0-5.4) 10^6/ul Hgb 14.3 (12.0-16.0) g/dl Hct 43 (35-47) % MCV 90 (80-97) fL MCH 30 (27-31) pg MCHC 34 (31-36) g/dl RDW 14 (10.5-15) % Plt Count 112 L (150-450) 10^3/ul MPV 8.1 (7.4-10.4) um3 Neut % (Auto) 79.3 (38-83) % Lymph % (Auto) 13.9 L (25-47) % [place] % (Auto) 5.9 (0-7) % Eos % (Auto) 0.1 (0-6) % Baso % (Auto) 0.8 (0-2) % Absolute Neuts (auto) 3.7 (1.5-7.7) 10^3/ul Absolute Lymphs (auto) 0.6 L (1.0-4.8) 10^3/ul Absolute Monos (auto) 0.3 (0-0.8) 10^3/ul Absolute Eos (auto) 0 (0-0.6) 10^3/ul Absolute Basos (auto) 0 (0-0.2) 10^3/ul Absolute Nucleated RBC 0 10^3/ul Nucleated RBC % 0 INR (Anticoag Therapy) 0.98 (0.77-1.02) APTT 35.8 (26.0-36.3) seconds Sodium 135 L (139-145) mmol/L Potassium 3.4 L (3.5-5.0) mmol/L Chloride 102 (101-111) mmol/L Carbon Dioxide 26 (22-32) mmol/L Anion Gap 7 (2-11) mmol/L BUN 11 (6-24) mg/dL Creatinine 0.66 (0.51-0.95) mg/dL Est GFR ( Amer) 116.3 (>60) Est GFR (Non-Af Amer) 90.5 (>60) BUN/Creatinine Ratio 16.7 (8-20) Glucose 97 (70-100) mg/dL Lactic Acid (0.5-2.0) mmol/L Calcium 9.3 (8.6-10.3) mg/dL Total Bilirubin 0.40 (0.2-1.0) mg/dL AST 25 (13-39) U/L ALT 16 (7-52) U/L Alkaline Phosphatase 67 (34-104) U/L Total Protein 5.9 L (6.4-8.9) g/dL Albumin 3.7 (3.2-5.2) g/dL Globulin 2.2 (2-4) g/dL Albumin/Globulin Ratio 1.7 (1-3) 05/05/18 Range/Units 11:02 WBC (3.5-10.8) 10^3/ul RBC (4.0-5.4) 10^6/ul Hgb (12.0-16.0) g/dl Hct (35-47) % MCV (80-97) fL MCH (27-31) pg MCHC (31-36) g/dl RDW (10.5-15) % Plt Count (150-450) 10^3/ul MPV (7.4-10.4) um3 Neut % (Auto) (38-83) % Lymph % (Auto) (25-47) % [place] % (Auto) (0-7) % Eos % (Auto) (0-6) % Baso % (Auto) (0-2) % Absolute Neuts (auto) (1.5-7.7) 10^3/ul Absolute Lymphs (auto) (1.0-4.8) 10^3/ul Absolute Monos (auto) (0-0.8) 10^3/ul Absolute Eos (auto) (0-0.6) 10^3/ul Absolute Basos (auto) (0-0.2) 10^3/ul Absolute Nucleated RBC 10^3/ul Nucleated RBC % INR (Anticoag Therapy) (0.77-1.02) APTT (26.0-36.3) seconds Sodium (139-145) mmol/L Potassium (3.5-5.0) mmol/L Chloride (101-111) mmol/L Carbon Dioxide (22-32) mmol/L Anion Gap (2-11) mmol/L BUN (6-24) mg/dL Creatinine (0.51-0.95) mg/dL Est GFR ( Amer) (>60) Est GFR (Non-Af Amer) (>60) BUN/Creatinine Ratio (8-20) Glucose (70-100) mg/dL Lactic Acid 0.8 (0.5-2.0) mmol/L Calcium (8.6-10.3) mg/dL Total Bilirubin (0.2-1.0) mg/dL AST (13-39) U/L ALT (7-52) U/L Alkaline Phosphatase (34-104) U/L Total Protein (6.4-8.9) g/dL Albumin (3.2-5.2) g/dL Globulin (2-4) g/dL Albumin/Globulin Ratio (1-3) Result Diagrams: 07/25/17 11:02 07/25/17 11:02 Lab Statement: Any lab studies that have been ordered have been reviewed, and results considered in the medical decision making process. - EKG 1132 Cardiac Rate: NL EKG Rhythm: Sinus Rhythm - [address] Segment: Non-Specific Ectopy: None EKG Interpretation: An EKG at 1132 reveals nml AVIVCT, nml QTc, and nml axis. EKG Comparison: Other - no prior to compare Re-Evaluation - Re-Evaluation First Eval Re-Evaluation Time: 11:16 Change: Worse Comment: Patient states she suddenly experienced a sharp shooting pain in the left side of her head, which radiated across to the right side a few minutes ago. The episode lasted a few seconds. Second Eval Re-Evaluation Time: 11:49 Change: Improved Comment: Patient states that she is feeling better after the morphine, but still in increased pain. Patient states that her pain is at a 8/10. Patient denies nausea. Informed patient about consultation with Dr. Lewis. Third Eval Re-Evaluation Time: 12:00 Change: Improved Comment: Patient states her pain has improved with Dilaudid. Fourth Eval Re-Evaluation Time: 14:12 Change: Improved Comment: Patient was informed of her treatment plan. Patient will be admitted and given 13 hour protocol to premedicate for IV contrast allergy, to receive CTA/CTV, and for pain control and neuro observation. Patient states that her pain is now down to a 6. Headache Course/Dx - Course Course Of Treatment: This patient is a 61 year old female presenting to [facility] with a chief complaint of continued headache, dx'd with nonocclusive venous sinus thrombus last pm on MRV on re-read of MRV this am. Advised by ED MD to return to ED when he called pt with this finding and pt reported continued CHACKO. Pt had prior dx venous sinus thrombosis on warfarin from 07/2016-11/2016, DC'd when MRV was "negative" in 11/2016. Patient is allergic to sulfa drugs and IV contrast dye. An EKG, taken 1132, reveals NSR (75 BPM), normal AVIVCT, normal QTc, and normal axis. nonspecific ST. Bloodwork Obtained. Urinalysis Obtained. Test results with no significant abnormalities. In the ED course the patient was given IV fluids, morphine, dilaudid. Allergies noted. Patient medications reviewed this visit. We discussed patient care with Dr. Ivy (PCP) at 1126 and he confirmed that the patient received an MRV in [place] the Nov 2016 that showed resolution of the thrombosis. The patients neurologist at [place] was Dr. Ramirez. We discussed patient care with Dr. Umanzor ( Neurologist) at 1130 and he stated that he would come to see the patient. We discussed patient care with [facility] at 1136 and she stated she will call Dr. Lewis (Neurologist). We discussed patient care with Dr. Lewis (Neurologist) at 1257 and he asked to order a CTA and CT Venogram. Dr. Lewis was able to review actual films of the MRV's done in 07/2016 ([facility]), 11/2016 ( [place]) and 07/24/2016 at [facility]. We discussed patient care with Dr. Fischer at 1316 and they recommended 13 hour protocol pretreatment for IV contrast allergy to obtain the CTA/CTV. The CTV should eliminate the evidence of any artifact. We discussed patient care with Dr. Umanzor (Neurologist) at 1351 and he recommended admitting the patient to the hospitalist. We discussed patient care with Dr. Taylor (Hospitalist) at 1401 and she agreed to admit the patient. Patient will be admitted with a dx of cephalgia, eval for venous sinus thrombosis. The patient is agreeable with this plan. - Diagnoses Differential Diagnosis/HQI/PQRI: Migraine, Sinus Headache, Other - venous sinus thrombosis, viral meningitis Provider Diagnoses: Cephalgia, Cerebral venous sinus thrombosis - Physician Notifications Discussed Care Of Patient With: Yung Ivy - PCP Time Discussed With Above Provider: 11:26 - We discussed patient care with Dr. Ivy (PCP) at 1126 and he confirmed that the patient received an MRI in Nov 2016 that showed resolution of the thrombosis. The patients neurologist at [place] was Dr. Ramirez. Instructed by Provider To: Admit As Inpatient - We discussed patient care with Dr. Umanzor (Neurologist) at 1351 and he recommended admitting the patient to the hospitalist. We discussed patient care with Dr. Taylor (Hospitalist) at 1401 and she agreed to admit the patient. Discharge - Sign-Out/Discharge Documenting (check all that apply): Discharge/Admit/Transfer - Discharge Plan Condition: Stable Disposition: ADMITTED TO [facility] - Billing Disposition and Condition Condition: STABLE Disposition: HOSP-[facility] Consult Consult: We discussed patient care with Dr. Umanzor (Neurologist) 1130 and he stated that he would come to see the patient and advised admission to [facility] after discussion with Dr. Lewis and exam and review of imaging. We discussed patient care with [facility] at 1136 and she stated she will call Dr. Lewis (Neurologist). We discussed patient care with Dr. Lewis (Neurologist) at 1257 and he asked to order a CTA and CT Venogram and discussed care with Dr. Umanzor We discussed patient care with Dr. Fischer at 1316 and he recommended 13 hour protocol pretreatment for contrast allergy; The documentation as recorded by the Alf hall Tecjoon accurately reflects the service I personally performed and the decisions made by , Jeanette Middleton MD.
[2017-07-26] MEDS: HYDROmorphone INJ* 2 MG/ML CARPUJECT SYRINGE IV SLOW PU PRN ×3 (02:25→13:07)
[2017-07-26] MEDS ORDERED: predniSONE TAB* 50 MG PO ONE ×2 (04:00→16:00)
[2017-07-26] MEDS ORDERED: diPHENhydraMINE PO* 50 MG PO ONE (04:00)
[2017-07-26] MEDS: Ketorolac INJ* 30 MG/ML 1 ML VIAL IV PUSH PRN ×2 (05:40→11:42)
[2017-07-26] MEDS: oxyCODONE/Acetamin 5/325 MG* TAB PO PRN ×2 (05:40→11:42)
[2017-07-26] MEDS: Heparin VIAL(*) 5000 UNITS/ML VIAL (FIVE THOUSAND) SUBCUT SCH ×2 (05:41→12:18)
[2017-07-26 08:39] VITALS: BP 100/63
--- NOTE | 2017-07-26 08:43 | RAD ---
INDICATION: Headache, possible venous sinus thrombosis. COMPARISON: Comparison is made with prior MRI and MRV studies of the brain from August 19, 2016 and July 24, 2017. TECHNIQUE: A CT angiogram and venogram of the head was performed following intravenous injection of 80 ml of Omnipaque 350 nonionic contrast. Contiguous axial sections were obtained from the skull base through the vertex. Images were reconstructed in the coronal and sagittal planes and in a 3-D volume rendered format. FINDINGS: CTA BRAIN: The internal carotid, anterior and middle cerebral arteries appear patent without evidence for significant stenosis or occlusion. The vertebral, basilar and posterior cerebral arteries appear patent without evidence for significant stenosis or occlusion. There is a dominant left vertebral artery and dolichoectasia of the basilar artery. No aneurysm or vascular malformation is seen. The intraluminal filling defects noted in the superior sagittal and right transverse sinus on the prior MRI study are likely related to flow artifacts. IMPRESSION: 1. NO EVIDENCE FOR ANEURYSM OR VENOUS SINUS THROMBOSIS. 2. DOLICHOECTASIA OF THE BASILAR ARTERY.
[2017-07-26] MEDS: Aspirin TAB* 325 MG PO SCH (08:48)
[2017-07-26] MEDS ORDERED: Calcium Carbonate TAB* 1250 MG (CALCIUM 500 MG) PO SCH (09:00)
[2017-07-26] MEDS ORDERED: Cyanocobalamin TAB* 500 MCG PO SCH (09:00)
[2017-07-26] MEDS ORDERED: DULoxetine DR CAP* 30 MG CAP.DR PO SCH (09:00)
[2017-07-26] MEDS ORDERED: Ascorbic Acid TAB* 500 MG PO SCH (09:00)
[2017-07-26] MEDS ORDERED: Omeprazole CAP* 20 MG PO SCH (09:00)
[2017-07-26] MEDS ORDERED: amLODIPine TAB* 5 MG PO SCH (09:00)
[2017-07-26] MEDS ORDERED: Cholecalciferol TAB* 1000 UNITS PO SCH (09:00)
--- NOTE | 2017-07-26 09:37 | PN ---
Subjective Date of Service: 07/26/17 Interval History: Pain is better this am although persists. She has had no new symptoms overnight. She has been taking pain meds for pain control. She is ok going home today but is concerned about the pain at home. She does have pain medication at home. Had an episode of mild bradycardia last night, no intervention. Blood pressure have been stable. No new issues. CTA: No evidence of vascular malformation, venous thrombosis. Dolichoectasia of the basilar artery noted Objective Active Medications: Amlodipine Besylate (Norvasc Tab*) 2.5 mg PO DAILY [facility] Last Admin: 07/26/17 08:56 Dose: Not Given Ascorbic Acid (Vitamin C Tab*) 500 mg PO DAILY [facility] Last Admin: 07/26/17 08:48 Dose: 500 mg Aspirin (Aspirin Tab*) 325 mg PO DAILY [facility] Last Admin: 07/26/17 08:48 Dose: 325 mg Calcium Carbonate (Calcium Carbonate Tab*) 500 mg PO DAILY [facility] Last Admin: 07/26/17 08:48 Dose: 500 mg Cholecalciferol (Vitamin D Tab*) 1,000 units PO DAILY [facility] Last Admin: 07/26/17 08:48 Dose: 1,000 units Cyanocobalamin (Vitamin B12 Tab*) 500 mcg PO DAILY [facility] Last Admin: 07/26/17 08:48 Dose: 500 mcg Duloxetine HCl (Cymbalta Cap*) 90 mg PO DAILY [facility] Last Admin: 07/26/17 08:47 Dose: 90 mg Gabapentin (Neurontin Cap(*)) 300 mg PO BEDTIME [facility] Last Admin: 07/25/17 20:19 Dose: 300 mg Heparin Sodium (Porcine) (Heparin Vial(*)) 5,000 units SUBCUT Q8HR [facility] Last Admin: 07/26/17 05:41 Dose: 5,000 units Hydromorphone HCl (Dilaudid Inj*) 1 mg IV SLOW PU Q4H PRN PRN Reason: PAIN Last Admin: 07/26/17 08:47 Dose: 1 mg Ketorolac Tromethamine (Toradol Inj*) 30 mg IV PUSH Q6H PRN PRN Reason: PAIN Last Admin: 07/26/17 05:40 Dose: 30 mg Omeprazole (Prilosec Cap*) 20 mg PO DAILY [facility] Last Admin: 07/26/17 08:48 Dose: 20 mg Ondansetron HCl (Zofran Odt Tab*) 4 mg SL Q6H PRN PRN Reason: NAUSEA/VOMITING Oxycodone/Acetaminophen (Percocet 5/325 Tab*) 2 tab PO Q6H PRN PRN Reason: PAIN Last Admin: 07/26/17 05:40 Dose: 2 tab Vital Signs 07/25/17 07/25/17 07/25/17 14:52 14:54 15:00 Temperature Pulse Rate Respiratory 12 17 19 Rate Blood Pressure 132/92 (mmHg) O2 Sat by Pulse Oximetry 07/25/17 07/25/17 07/25/17 15:22 15:52 16:00 Temperature Pulse Rate Respiratory 15 17 17 Rate Blood Pressure 143/89 154/95 (mmHg) O2 Sat by Pulse Oximetry 07/25/17 07/25/17 07/25/17 16:22 16:30 17:04 Temperature 99.0 F 97.9 F Pulse Rate 87 Respiratory 22 20 Rate Blood Pressure 156/100 135/80 (mmHg) O2 Sat by Pulse 94 Oximetry 07/25/17 07/25/17 07/25/17 17:43 19:17 20:04 Temperature 98.9 F Pulse Rate 91 Respiratory 20 16 16 Rate Blood Pressure 131/69 (mmHg) O2 Sat by Pulse 93 Oximetry 07/25/17 07/25/17 07/25/17 20:19 21:30 22:51 Temperature Pulse Rate Respiratory 18 18 18 Rate Blood Pressure (mmHg) O2 Sat by Pulse Oximetry 07/25/17 07/25/17 07/26/17 23:38 23:50 02:25 Temperature Pulse Rate 69 Respiratory 16 16 18 Rate Blood Pressure 119/68 (mmHg) O2 Sat by Pulse 94 Oximetry 07/26/17 07/26/17 07/26/17 03:00 03:49 03:55 Temperature 97.4 F Pulse Rate 52 Respiratory 18 14 18 Rate Blood Pressure 93/56 (mmHg) O2 Sat by Pulse 95 Oximetry 07/26/17 07/26/17 07/26/17 03:58 05:40 07:58 Temperature 97.3 F Pulse Rate 60 Respiratory 18 18 18 Rate Blood Pressure 100/63 (mmHg) O2 Sat by Pulse 93 Oximetry 07/26/17 07/26/17 08:47 08:56 Temperature Pulse Rate Respiratory 16 16 Rate Blood Pressure (mmHg) O2 Sat by Pulse Oximetry Oxygen Devices in Use Now: None Neurology Exam: General: HEENT: Normocephalic/atraumatic, sclera anicteric, mucous membranes moist Chest: Clear to auscultation bilaterally Cardiovascular: Regular rate and rhythm without murmurs, rubs, gallops Abdomen: Soft, nontender/nondistended Extremities: No clubbing, cyanosis, or edema Neurological Findings: Awake, Alert, Oriented x3 Speech: fluent without dysarthric, repetition intact Cranial Nerve: PEERL, EOM intact, VFF, no nystagmus, face symmetric bilaterally , facial sensation intact, hearing intact, palate elevates symmetrically, tongue midline Motor: Moving all extremities antigravity with good resistance, no focal weakness Sensation: grossly intact to LT throughout, paresthesias of the feet bilaterally Deep Tendon Reflex: 2+ symmetric in the upper/lower extremities, Babinski - down going Finger to nose, rapid alternating movements intact, mild intention tremor Gait: intact with good arm swing and stride Result Diagrams: 07/25/17 11:02 07/25/17 11:02 Additional Lab and Data: Lab Results 07/25/17 07/25/17 07/25/17 Range/Units 11:02 11:02 11:02 WBC 4.7 (3.5-10.8) 10^3/ul RBC 4.75 (4.0-5.4) 10^6/ul Hgb 14.3 (12.0-16.0) g/dl Hct 43 (35-47) % MCV 90 (80-97) fL MCH 30 (27-31) pg MCHC 34 (31-36) g/dl RDW 14 (10.5-15) % Plt Count 112 L (150-450) 10^3/ul MPV 8.1 (7.4-10.4) um3 Neut % (Auto) 79.3 (38-83) % Lymph % (Auto) 13.9 L (25-47) % Sac % (Auto) 5.9 (0-7) % Eos % (Auto) 0.1 (0-6) % Baso % (Auto) 0.8 (0-2) % Absolute Neuts (auto) 3.7 (1.5-7.7) 10^3/ul Absolute Lymphs (auto) 0.6 L (1.0-4.8) 10^3/ul Absolute Monos (auto) 0.3 (0-0.8) 10^3/ul Absolute Eos (auto) 0 (0-0.6) 10^3/ul Absolute Basos (auto) 0 (0-0.2) 10^3/ul Absolute Nucleated RBC 0 10^3/ul Nucleated RBC % 0 INR (Anticoag Therapy) 0.98 (0.77-1.02) APTT 35.8 (26.0-36.3) seconds Sodium 135 L (139-145) mmol/L Potassium 3.4 L (3.5-5.0) mmol/L Chloride 102 (101-111) mmol/L Carbon Dioxide 26 (22-32) mmol/L Anion Gap 7 (2-11) mmol/L BUN 11 (6-24) mg/dL Creatinine 0.66 (0.51-0.95) mg/dL Est GFR ( Amer) 116.3 (>60) Est GFR (Non-Af Amer) 90.5 (>60) BUN/Creatinine Ratio 16.7 (8-20) Glucose 97 (70-100) mg/dL Lactic Acid (0.5-2.0) mmol/L Calcium 9.3 (8.6-10.3) mg/dL Total Bilirubin 0.40 (0.2-1.0) mg/dL AST 25 (13-39) U/L ALT 16 (7-52) U/L Alkaline Phosphatase 67 (34-104) U/L Total Protein 5.9 L (6.4-8.9) g/dL Albumin 3.7 (3.2-5.2) g/dL Globulin 2.2 (2-4) g/dL Albumin/Globulin Ratio 1.7 (1-3) // Range/Units 11:02 WBC (3.5-10.8) 10^3/ul RBC (4.0-5.4) 10^6/ul Hgb (12.0-16.0) g/dl Hct (35-47) % MCV (80-97) fL MCH (27-31) pg MCHC (31-36) g/dl RDW (10.5-15) % Plt Count (150-450) 10^3/ul MPV (7.4-10.4) um3 Neut % (Auto) (38-83) % Lymph % (Auto) (25-47) % Sac % (Auto) (0-7) % Eos % (Auto) (0-6) % Baso % (Auto) (0-2) % Absolute Neuts (auto) (1.5-7.7) 10^3/ul Absolute Lymphs (auto) (1.0-4.8) 10^3/ul Absolute Monos (auto) (0-0.8) 10^3/ul Absolute Eos (auto) (0-0.6) 10^3/ul Absolute Basos (auto) (0-0.2) 10^3/ul Absolute Nucleated RBC 10^3/ul Nucleated RBC % INR (Anticoag Therapy) (0.77-1.02) APTT (26.0-36.3) seconds Sodium (139-145) mmol/L Potassium (3.5-5.0) mmol/L Chloride (101-111) mmol/L Carbon Dioxide (22-32) mmol/L Anion Gap (2-11) mmol/L BUN (6-24) mg/dL Creatinine (0.51-0.95) mg/dL Est GFR ( Amer) (>60) Est GFR (Non-Af Amer) (>60) BUN/Creatinine Ratio (8-20) Glucose (70-100) mg/dL Lactic Acid 0.8 (0.5-2.0) mmol/L Calcium (8.6-10.3) mg/dL Total Bilirubin (0.2-1.0) mg/dL AST (13-39) U/L ALT (7-52) U/L Alkaline Phosphatase (34-104) U/L Total Protein (6.4-8.9) g/dL Albumin (3.2-5.2) g/dL Globulin (2-4) g/dL Albumin/Globulin Ratio (1-3) Microbiology and Other Data: Microbiology 07/26/17 08:50 Influenza Types A,B Antigen ([place]) - Final Nasal Specimen received for Influenza A/B Molecular testing Assessment/Plan 61 year old with prior history of possible Venous sinus thrombosus, previously on Coumadin but follow up with [place] showed resolution and she was taken off Coumadin. Remains on ASA. Hypercoaguable workup reported negative. Presented with severe headache. Initial MRV on ER presentation showed possible , non-occlusive venous thrombus but CTV shows no evidence. 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 Suspect a viral prodrome. She has a history of neuropathy as well which is stable 1. No evidence of venous thrombosis. OK to D/C home from neurology standpoint with some pain med for home pain control. Defer to primary regarding timing of d/c. 2. Would continue ASA, Blood pressure control as outpatient. 3. Dolichectasia is typically treated with blood pressure control. Typically, can cause some cranial nerve issues, she has none and I do not think this is clinically relevant. Something we will follow as outpatient. 4. Return to ER with worsening headache 5. Plan for follow up in my clinic for continued CHACKO control and treatment of her neuropathy.
[2017-07-26] MEDS ORDERED: Potassium Chloride LIQUID* 20 MEQ PACKET PO ONE (09:46)
[2017-07-26 12:11] LABS: Urine Appearance Clear; Urine Blood Negative (Negative); Urine Color Yellow; Urine Ketones Negative (Negative); Urine Protein 1+(30 mg/dL) (Negative); Urine Specific Gravity > 1.060 (1.010-1.030); Urine Urobilinogen Negative (Negative)
--- NOTE | 2017-07-27 01:24 | DS ---
CC: Dr. Ivy; Pranav Trinh MD * DISCHARGE SUMMARY: DATE OF ADMISSION: 07/25/17 DATE OF DISCHARGE: 07/26/17 PRIMARY CARE PROVIDER: Dr. Ivy. MY ATTENDING WHILE IN THE HOSPITAL: Emelyn Ramírez MD * (DICTATED BY ALEX DAILY) OUTPATIENT NEUROLOGIST: Pranav Trinh MD PRIMARY DISCHARGE DIAGNOSIS: Headache. SECONDARY DISCHARGE DIAGNOSIS: 1. Hypertension. 2. Breast cancer. 3. Hyperlipidemia. 4. Anxiety and depression. 5. Painful peripheral neuropathy. 6. Gastroesophageal reflux disease. 7. Suspected treatment for venous sinus thrombosis in 2017, deemed to be artifact on repeat evaluation with a CT scan. STUDIES DONE WHILE IN THE HOSPITAL: 1. Head CTA from 07/26/17 read as no evidence for aneurysm or venous sinus thrombosis, dolichoectasia of the basilar artery. 2. Electrocardiogram from 07/25/17 read as no sinus rhythm, no axis, rate of 75 , QTC of 453. No ST segment abnormalities or other abnormalities. No blocks or hypertrophy. No studies to compare. MEDICATIONS AT DISCHARGE: 1. Gabapentin 300 mg p.o. at bedtime. 2. Vitamin B12, 500 mcg p.o. daily. 3. Vitamin D 1000 units p.o. daily. 4. Calcium carbonate 500 mg p.o. daily. 5. Ascorbic acid 500 mg p.o. daily. 6. Amlodipine 2.5 mg p.o. daily. 7. Cymbalta 90 mg p.o. daily. 8. Cyclosporin 1 drop both eyes b.i.d. 9. Oxycodone 5 to 10 mg p.o. q.4 hours as needed. 10. Omeprazole 20 mg p.o. daily. 11. Alendronate 70 mg p.o. weekly. 12. Aspirin 325 mg p.o. daily. 13. Ketorolac 10 mg p.o. q.6 hours as needed for pain. 14. Zofran 4 mg sublingually q.6 hours as needed for nausea. 15. Dilaudid 4 mg p.o. q.6 hours as needed. 16. Tylenol 625 mg p.o. q.4 hours as needed. New medications at discharge: 1. Aspirin, to be started in 5 days. 2. Toradol, 5 days' worth. 3. Zofran. 4. Dilaudid. 5. Tylenol. Medications discontinued on discharge, none. HOSPITAL COURSE: This is a brief summary of the patient's presentation. For more details, please see the history and physical from Obdulia Vaughan NP, from 08/07 as well as the consultation by Dr. Hi Umanzor on 07/25/17, as well as the ED provider report from Dr. Jeanette Middleton on 07/25/17. In brief, the patient is a 61- year-old female with past medical history significant for the above who presented to the emergency department in the evening of 07/24/17, had a head MRI, brain MRI, and brain CT which were all read as normal. Initially, however, the MR venogram of the head was over read by the neurologist in the morning who thought there was a possible non-occlusive thrombus in the posterior artifact of the superior sagittal sinus and the patient was brought back to the emergency department and then to the hospital for a repeat CTA of the head. The patient was seen in consultation by Dr. Umanzor. The patient had had fevers, chills, and malaise with this. This was a similar presentation to what she had had in July 2016, and she was thought to have a venous sinus thrombosis. She went to [facility] and treated with anticoagulants. The patient had a repeat MRV on 11/22/16 that showed no venous thrombosis and it was believed that the initial read may have been due to artifact. The patient was stopped on heparin. The patient had fevers and malaise and a headache this time as well. The malaise and fever have gone away , but she continued to have excruciating headache with photophobia. The patient was treated with significant pain medications including IV Dilaudid, Percocet, IV Toradol while in the emergency department as she was admitted, which helped significantly with her headache, bringing it from a 10/10 to 5. The photophobia also decreased and the headache seemed to improve by itself. Over the course of her hospitalization, the patient was treated with prednisone and Benadryl due to her allergies to IODINATED CONTRAST and had repeat CTA in the morning of 07/26/17, which was read as above. She was seen in consultation by Dr. Hi Umanzor initially, who recommended aspirin for anticoagulation and CT venogram of her head. The patient was put on a PPI for seizure prophylaxis. The patient had a CTA of her head which was normal. The patient's headache diminished as above. The patient had low potassium which was corrected. No other laboratory abnormalities. The patient was seen in consultation by Dr. Pranav Trinh of Neurology. He recommended continuing aspirin, monitoring the dolichoectasia, and continuing outpatient blood pressure control. Anticoagulation outside of aspirin was not recommended. The patient was stable and amenable to discharge to home on 07/26/17 with her home oxycodone, Dilaudid , and Toradol for pain control as needed. PHYSICAL EXAMINATION ON DAY OF DISCHARGE: General: The patient is a 61-year- old female, who appears her stated age, and is sitting comfortably in bed, in no acute distress. Vital Signs at the time of discharge: Temperature 97.3, pulse rate 60, respiratory rate 18, oxygen saturation 93% on room air, blood pressure 106/63. HEENT: Head normocephalic, atraumatic. Sclerae anicteric. No conjunctival injection. Nasal mucosa moist. Oral mucosa moist. No pharyngeal erythema, discharge or exudate. Neck: Supple, nontender. No lymphadenopathy. No carotid bruits auscultated. No JVD. Cardiac: Regular rate and rhythm. No clicks, murmurs, gallops, or rubs. Pulses 2+ bilaterally in dorsalis pedis, posterior tibialis, and radial areas. No lower extremity calf edema or tenderness noted. Respiratory: Clear to auscultation bilaterally. No wheezes, rales or rhonchi. Good air exchange bilaterally. Abdomen: Soft, nontender, nondistended. Bowel sounds present. Normoactive in all 4 quadrants. No hepatosplenomegaly. No abdominal bruits auscultated. Genitourinary: No suprapubic or CVA tenderness. Skin: Clean, dry, intact. No rash. Neuro: Cranial nerves II through XII intact. Pupils equal, round, reactive to light. No nystagmus. Mild photophobia. Strength 5/5 both upper and lower extremities distally and proximally. Painful neuropathy. Stable per the patient's report. Reflexes: 1+ in bilateral biceps, Achilles, and patellar areas. Cerebellar testing performed without difficulty. Normal gait. Psychiatric: Pleasant and cooperative. LABORATORY DATA: Of note, platelet count 112,000. Potassium 3.4. 1+ urine protein. Urine, squamous epithelial cells present. Influenza A and B negative. DISCHARGE PLAN: The patient will be discharged to home with the above pain medications for a short of period of time. The patient is to follow up with her neurologist, Dr. Pranav Trinh, within 1 month for management of her headache if it is ongoing, as well as treatment of her painful neuropathy. The patient should follow up with primary care provider within 1 week for general medical management to ensure improvement in her symptoms to control her blood pressure and for general medical management. The patient should not take Toradol past 5 days. The patient should take aspirin after those 5 days for anticoagulation. The patient should have blood pressure control as above which had generally good control while in the hospital. The patient should have activity as tolerated and a heart-healthy diet without caffeine. The patient should return to the hospital for alarming symptoms such as increase in her headache, chest pain, shortness of breath, syncope or other alarming symptoms. TIME SPENT: Approximately 60 minutes were spent on this discharge, 30 of which was spent [id number] with the patient obtaining the history and physical and discussing the treatment plan. ALEX DAILY [id number]/[facility] #: [id number] [place]
== END 2017-07-26 15:00 | disposition home or self-care (01) ==
LOC: ED 10:02 → MED 14:22
PROVIDERS: ADMIT Internal Medicine; ATTEND Internal Medicine
DX: R51 Headache (principal); I10 Essential (primary) hypertension; E78.5 Hyperlipidemia, unspecified; F41.9 Anxiety disorder, unspecified; F32.9 Major depressive disorder, single episode, unspecified; G62.9 Polyneuropathy, unspecified; K21.9 Gastro-esophageal reflux disease without esophagitis; Z79.899 Other long term (current) drug therapy; Z88.2 Allergy status to sulfonamides; Z88.8 Allergy status to other drugs, medicaments and biological substances; Z91.041 Radiographic dye allergy status; Z85.3 Personal history of malignant neoplasm of breast; Z87.891 Personal history of nicotine dependence; Z79.01 Long term (current) use of anticoagulants
CPT/HCPCS: 36415; 70496; 80053; 81003; 81015; 83605; 85025; 85610; 85730; 87502; 93005; 96372; 96374; 96375; 96376; 99284; A9270-GY; G0378; J1170; J1644; J1885; J2270; J7512; Q9967

== ENCOUNTER 2017-07-27 18:24 | Inpatient (IN) | payer BC ==
[2017-07-27] MEDS ORDERED: NS 0.9% 1000 ML* 2,000 ML IV ONE (20:20)
[2017-07-27] MEDS ORDERED: HYDROmorphone INJ* 2 MG/ML CARPUJECT SYRINGE IV SLOW PU ONE (20:21)
--- NOTE | 2017-07-27 20:24 | ED ---
Neurological HPI - HPI Summary HPI Summary: Pt returns to ED with complaints of CHACKO and low back pain. Pt was DC'd yesterday approx 3 pm, after eval for possible venous sinus thrombosis, which was negative. Pt states she felt fine at time of discharge. Pt has hx painful peripheral neuropathy also but states this pain is not her neuropathy pain. Pt brought in to ED by her daughter with c/o severe headache and low back pain. Initial triage temp is 101.3. Pt was unaware of fever upon presentation. Pt took 3 oxycodone tabs at home for pain without relief. - History of Current Complaint Chief Complaint: EDHeadache Stated Complaint: HEADACHE Time Seen by Provider: 07/27/17 19:28 Hx Obtained From: Patient, Family/Nursing Director - daughter Tosin Onset/Duration: Gradual Onset, Started hours ago, Still Present Timing: Constant Onset Severity: Severe Current Severity: Severe Headache Location: Diffuse (Right), Diffuse (Left) Pain Intensity: 10 Pain Scale Used: 0-10 Numeric Character: Pressure Aggravating: Nothing Alleviating: Nothing Associated Signs and Symptoms: Positive: Fever - noted in ED. Negative: Visual Changes - +photophobic, Neck Pain/Stiffness TPA Considered: No - Additional Pertinent History Primary Care Physician: [id number] - Allergy/Home Medications Allergies/Adverse Reactions: Allergies Allergy/AdvReac Type Severity Reaction Status Date / Time iodine Allergy Rash Verified 07/27/17 18:26 Sulfa (Sulfonamide Allergy Rash Verified 07/27/17 18:26 Antibiotics) CT CONTRAST Allergy Vomiting Uncoded 07/27/17 18:26 PMH/Surg Hx/FS Hx/Imm Hx Endocrine/Hematology History: Reports: Hx Anticoagulant Therapy - was on warfarin 07/2016-11/2016, DC'd by Dr. Ramirez Denies: Hx Diabetes Cardiovascular History: Reports: Hx Hypertension Denies: Hx Pacemaker/ICD Respiratory History: Denies: Hx Asthma History: Denies: Hx Renal Disease Musculoskeletal History: Reports: Other Musculoskeletal History - bilat knee surgery Sensory History: Denies: Hx Cataracts, Hx Contacts or Glasses, Hx Hearing Aid Opthamlomology History: Denies: Hx Cataracts, Hx Contacts or Glasses Neurological History: Reports: Hx Migraine, Hx Peripheral Neuropathy, Other Neuro Impairments/Disorders - peripheral neuropathy Denies: Hx Seizures Psychiatric History: Reports: Hx Depression Denies: Hx Panic Disorder - Cancer History Cancer Type, Location and Year: Lt BREAST CARCINOMA 2003 & LUMPECTOMY Hx Chemotherapy: No - TAMOXIFEN ( NO LONGER TAKING) Hx Radiation Therapy: No - Surgical History Surgery Procedure, Year, and Place: BILATERAL KNEE SURGERIES; meniscus tears. LT BREAST LUMPECTOMY. BROKEN FEMUR CHILD METAL TAKEN OUT. Rt SHOULDER - RCT Hx Anesthesia Reactions: No Infectious Disease History: No Infectious Disease History: Denies: Traveled Outside the [place] in Last 30 Days - Family History Known Family History: Positive: Other - brain aneurysm in grandmother - Social History Occupation: Retired Alcohol Use: None Hx Substance Use: No Substance Use Type: Reports: None Hx Tobacco Use: Yes Smoking Status (MU): Former Smoker Review of Systems Positive: Fever - noted in ED , Skin Diaphoresis Positive: Photophobia ENT: Negative Cardiovascular: Negative Respiratory: Negative Gastrointestinal: Negative Positive: no symptoms reported Positive: Arthralgia - low back pain Negative: Rash Positive: Headache - diffuse Psychological: Normal All Other Systems Reviewed And Are Negative: Yes Physical Exam Triage Information Reviewed: Yes Vital Signs On Initial Exam: Initial Vitals Temp Pulse Resp BP Pulse Ox 101.3 F 96 18 123/78 100 07/27/17 18:25 07/27/17 18:25 07/27/17 18:25 07/27/17 18:25 07/27/17 18:25 Vital Signs Reviewed: Yes Appearance: Positive: Well-Nourished, Ill-Appearing, Pain Distress Skin: Positive: Warm, Diaphoretic Head/Face: Positive: Normal Head/Face Inspection Eyes: Positive: EOMI, FELIX, Conjunctiva Clear ENT: Positive: Pharynx normal, TMs normal. Negative: Nasal congestion, Nasal drainage Neck: Positive: Supple, Nontender, No Lymphadenopathy. Negative: Nuchal Rigidity Respiratory/Lung Sounds: Positive: Clear to Auscultation, Breath Sounds Present Cardiovascular: Positive: RRR, Pulses are Symmetrical in both Upper and Lower Extremities, S1, S2. Negative: Leg Edema Left, Leg Edema Right Abdomen Description: Positive: Nontender, No Organomegaly, Soft Bowel Sounds: Positive: Present Musculoskeletal: Positive: Normal, Strength/ROM Intact. Negative: Melina Sign Left, Melina Sign Right, Edema Left, Edema Right Neurological: Positive: Sensory/Motor Intact, Alert, Oriented to Person Place, Time, CN Intact II-III, Normal Gait, Facial Symmetry, Speech Normal Psychiatric: Positive: Affect/Mood Appropriate - Daniel Coma Scale Best Eye Response: 4 - Spontaneous Best Motor Response: 6 - Obeys Commands Best Verbal Response: 5 - Oriented Coma Scale Total: 15 Diagnostics - Vital Signs Vital Signs Temp Pulse Resp BP Pulse Ox 07/27/17 19:18 98.6 F 94 24 176/92 97 07/27/17 18:25 101.3 F 96 18 123/78 100 - Laboratory Result Diagrams: 07/27/17 20:40 07/27/17 20:40 Lab Statement: Any lab studies that have been ordered have been reviewed, and results considered in the medical decision making process. Re-Evaluation - Re-Evaluation First Eval Re-Evaluation Time: 19:30 Change: Unchanged Comment: still with CHACKO and back pain. Second Eval Re-Evaluation Time: 20:30 Change: Unchanged Comment: given dilaudid and acetaminophen for pain and fever, daughter remains with pt. Course/Dx - Course Course Of Treatment: Labs drawn, fever verified with rectal temp 105. Pt given IV fluids, acetaminophen, dilaudid IV for pain. Care discussed with Dr. Umanzor , advised LP and pain control. Care discussed with Dr. Tadeo, will admit for pain control and further eval. Care discussed with Dr. Jackson for consult for LP, unable due to OR case. Care discussed with Dr. Meza, second call anesthesia. Pt not a candidate for LP at this time with thrombocytopenia. Dr. Tadeo will give broad spectrum ABX that will penetrate CATERING MANAGER, to treat fever and will discuss further with Dr. Umanzor. Pt and daughter voice understanding and agree. - Diagnoses Provider Diagnoses: Fever, Cephalgia, Back pain, Thrombocytopenia Discharge - Sign-Out/Discharge Documenting (check all that apply): Discharge/Admit/Transfer - admit - Discharge Plan Condition: Stable Disposition: ADMITTED TO [facility] - Billing Disposition and Condition Condition: STABLE [place]position[place] [facility] [place]
[2017-07-27] MEDS ORDERED: Acetaminophen TAB* 325 MG PO ONE (20:45)
[2017-07-27 21:02] LABS: ABS Basophils 0 10^3/ul (0-0.2); ABS Eosinophils 0 10^3/ul (0-0.6); ABS Lymphocytes 1.1 10^3/ul (1.0-4.8); ABS Monocytes 0.8 10^3/ul (0-0.8); ABS Nucleated RBC 0 10^3/ul; Hematocrit 43 % (35-47); Hemoglobin 14.6 g/dl (12.0-16.0); Mean Corpuscular HGB Conc 34 g/dl (31-36); Mean Corpuscular Hemoglobin 31 pg (27-31); Mean Corpuscular Volume 90 fL (80-97); Mean Platelet Volume 8.5 um3 (7.4-10.4); Nucleated Red Blood Cells % 0.1; Platelet Count 71 10^3/ul (150-450); Red Blood Count 4.78 10^6/ul (4.0-5.4); Red Cell Distribution Width 13 % (10.5-15); White Blood Count 6.3 10^3/ul (3.5-10.8)
[2017-07-27 21:03] LABS: INR 1.02 (0.77-1.02)
[2017-07-27 21:11] LABS: EGFR Non-African American 72.4 (>60)
[2017-07-27] MEDS ORDERED: Vancomycin(*) 1,000 MG in NS 0.9% 250 ML* 250 ML IVPB ONE (21:31)
[2017-07-27] MEDS ORDERED: cefTRIAXone(*) 2 GM in NS 0.9% 100 ML* 100 ML IVPB ONE (21:31)
[2017-07-27] MEDS ORDERED: Ondansetron INJ* 2 MG/ML VIAL IV PRN (21:35)
[2017-07-27] MEDS ORDERED: Al Hydrox/Mg Hydrox/Simet LIQ* 30 ML UDC PO PRN (21:35)
[2017-07-27] MEDS ORDERED: Morphine VIAL* 4 MG/ML VIAL (1 ml vial) IV PRN (21:35)
[2017-07-27] MEDS ORDERED: Vancomycin per Pharmacy* NOTE FOLLOW UP SCH (22:00)
--- NOTE | 2017-07-27 22:06 | RAD ---
INDICATION: Fever COMPARISON: Chest x-ray April 12, 2008 TECHNIQUE: Single AP portable view of the chest was obtained. FINDINGS: Image quality is compromised due to the relative inferiority of a portable chest x-ray. The heart and mediastinum exhibit normal size and contour. The lungs are grossly clear. There is no evidence of a large pleural effusion. Visualized bones are normal for the patient's age. IMPRESSION: No radiographic evidence for acute cardiopulmonary abnormality on this portable chest x-ray.
[2017-07-27 22:09] LABS: Monocytes % 17 % (0-7)
[2017-07-27 23:19] LABS: Urine Appearance Clear; Urine Blood 1+ (Negative); Urine Color Yellow; Urine Ketones Negative (Negative); Urine Protein Negative (Negative); Urine Specific Gravity 1.009 (1.010-1.030); Urine Urobilinogen Negative (Negative)
[2017-07-27] MEDS: oxyCODONE TAB* 5 MG TAB PO PRN (23:42)
[2017-07-27] MEDS: Heparin VIAL(*) 5000 UNITS/ML VIAL (FIVE THOUSAND) SUBCUT SCH (23:45)
[2017-07-27] MEDS: Senna TAB PO PRN (23:48)
[2017-07-27] MEDS: Docusate CAP* 100 MG PO PRN (23:48)
[2017-07-28] MEDS: Acyclovir IV(*) 700 MG in NS 0.9% 250 ML* 250 ML IVPB SCH ×3 (00:25→13:52)
[2017-07-28] MEDS: Ampicillin IV* 2 GM in NS 0.9% 100 ML* 100 ML IVPB SCH ×7 (01:40→23:53)
[2017-07-28] MEDS: oxyCODONE TAB* 5 MG TAB PO PRN ×2 (04:24→09:08)
--- NOTE | 2017-07-28 05:42 | HP ---
CC: Yung Ivy MD * HISTORY AND PHYSICAL: DATE OF ADMISSION: 07/27/17 TIME OF EVALUATION: 2100. CHIEF COMPLAINT: Headache. HISTORY OF PRESENT ILLNESS: This is a 61-year-old female with a past medical history of intractable headache and remote history of venous sinus thrombosis who was just discharged yesterday on the for the same presentation of the headache with fever off and on who now presents with a recurrent headache and a high-grade fever. The patient states when she was discharged yesterday her headache was resolved. She was feeling better. During the evening last night the back of her head and the back of her neck began throbbing pain, the back of her legs and knee joints were hurting and she thinks she was having a fever off and on since 07/23/17. In the emergency room, the patient is noted to have a rectal temp of 105. She states she was having nausea and vomiting earlier. She has had dizziness, photophobia or phonophobia. No confusion. No falls. No chest pain. No shortness of breath. No URI symptoms. No rash. No recent travel. No recent antibiotic use. She states she is outside frequently. She last had a tick bite about a week ago on her head. She thinks it was there for about a day. She states her headache is significantly improved since her arrival and she did get 1 mg of Dilaudid in the emergency room. The patient had labs and imaging, Anesthesia was called to do an LP but her platelets are 71 and they did not feel comfortable with this and thus the LP was deferred. Neurology was also contacted regarding her admission and workup. The patient was referred to the hospitalist service for intractable head-ache in the setting of a fever. In the emergency room, she got Tylenol and 1 mg of Dilaudid and 2 L of normal saline. PAST MEDICAL HISTORY: 1. Intractable headache admission from 07/25/17 to 07/26/17. 2. History of idiopathic sensory neuropathy. 3. History of venous sinus thrombosis in 2017 and was on anticoagulation short - term. 4. History of anxiety and depression. 5. Osteoporosis. 6. Hypertension. 7. Remote history of migraines. 8. Breast cancer followed by Dr. Henderson. 9. GERD. MEDICATIONS: 1. Gabapentin 300 mg p.o. at bedtime. 2. Vitamin B12 500 mcg p.o. daily. 3. Vitamin D 1000 units p.o. daily. 4. Calcium carbonate 500 mg p.o. daily. 5. Ascorbic acid 500 mg p.o. daily. 6. Amlodipine 2.5 mg daily. 7. Cymbalta 90 mg p.o. daily. 8. Cyclosporine 1 drop both eyes b.i.d. 9. Oxycodone 5 to 10 mg p.o. q.4 hours as needed. 10. Omeprazole 20 mg p.o. daily. 11. Alendronate 70 mg p.o. weekly. 12. Aspirin 325 mg p.o. daily, the patient was not to be started this in 5 days , which would be on 07/30/17. 13. Ketorolac 10 mg p.o. q.6 hours as needed for pain. 14. Zofran 4 mg sublingually q.6 hours as needed for nausea. 15. Dilaudid 4 mg q.6 hours as needed. 16. Tylenol 625 mg every 4 hours as needed. ALLERGIES: IODINE and SULFA. FAMILY HISTORY: Both parents from [place]. SOCIAL HISTORY: The patient lives alone. 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 No history of tobacco, alcohol or illicit drug use. Her daughter Tosin Acosta is her healthcare proxy. Code status is full code. REVIEW OF SYSTEMS: A 14-point review of systems as mentioned in the HPI, otherwise negative. PHYSICAL EXAMINATION GENERAL: Mildly ill appearing with washcloth over the face, and the room is dark, her daughter is at the bedside. VITAL SIGNS: T. max 105.7, pulse rate 94, respiratory rate 16, oxygen saturation 94% on 3 L, blood pressure 176/92. HEENT: Head: Normocephalic. Pupils are equal, reactive and anicteric. Oropharynx: Mucous membranes are dry. NECK: Supple. She does not have nuchal rigidity but she does have tenderness in the posterior neck, head and frontal head. RESPIRATORY: Clear to auscultation. No wheezing, rhonchi, or rales. CARDIAC: Regular rate and rhythm. Soft systolic murmur heard throughout. ABDOMEN: Soft, nontender, nondistended. EXTREMITIES: No clubbing, cyanosis, or edema. +2 DPs. NEUROLOGIC: Alert and oriented x3. No gross focal neurologic deficits. MUSCULOSKELETAL: No joint swelling or pain with range of motion. SKIN: No lesions or rashes. LABORATORY DATA: White count 6.3, hemoglobin 14.6, hematocrit 43, platelets 71 ,000. INR is 1.02. Sodium 134, potassium 3.4, chloride 95, bicarb 29, BUN 13, creatinine 0.8, glucose 111, lactic acid 2.1. AST 45. RADIOGRAPHIC DATA: No acute findings. ASSESSMENT: This is a 61-year-old female with a past medical history of intractable headache who presents after being discharged yesterday 07/26/17, for recurrence of her intractable headache now in the setting of a high fever. 1. Headache and high fever. Assessment: Of course, the concern is bacterial meningitis. Due to her low platelets being 71, Anesthesia was not comfortable doing lumbar puncture. We will treat her empirically for now including acyclovir per Dr. Umanzor's recommendation, vancomycin, ceftriaxone and ampicillin to cover for listeria. We will ask Dr. Ledesma to see the patient as well in the morning, repeat her labs and hopeful that she will be able to get an LP tomorrow with elevated platelets. Her initial workup on her last admission, she had a Lyme disease serology that was negative on the 4th, influenza negative x2 and blood cultures that were also negative as well. We will repeat an influenza swab now, blood cultures have been obtained. We will follow up on this as well. There is a question that maybe this is possibly a rheumatologic autoimmune process, consider rheumatology consult if her infectious workup is unremarkable. We will also add on a sed rate and a CRP level and place her on IV fluids and pain control for her headache and antiemetics. 2. Thrombocytopenia. I suspect this in the setting of her infectious process causing suppression. We will repeat her labs in the morning. In the interim, we will hold her aspirin and her Toradol for her possible procedure for lumbar puncture and in the setting of thrombocytopenia. 3. Remaining medications, we will order them as prescribed. We will hold her Dilaudid as she is getting oxycodone and morphine IV and start her on a bowel regimen. 4. DVT prophylaxis:. The patient scores moderate risk. We will place her on heparin subcu t.i.d. 5. FEN: We will place the patient on a regular diet with IV fluids. 6. Code status: Full code. TIME SPENT: Greater than 60 minutes was spent doing the history and physical, more than half the time spent in direct patient contact. [id number]/[facility] #: [id number] [place]
[2017-07-28] MEDS: Heparin VIAL(*) 5000 UNITS/ML VIAL (FIVE THOUSAND) SUBCUT SCH (05:43)
[2017-07-28 05:50] LABS: INR 0.98 (0.77-1.02)
[2017-07-28 05:56] LABS: EGFR Non-African American 87.4 (>60)
[2017-07-28 06:11] LABS: ABS Basophils 0 10^3/ul (0-0.2); ABS Eosinophils 0 10^3/ul (0-0.6); ABS Lymphocytes 1.6 10^3/ul (1.0-4.8); ABS Monocytes 0.8 10^3/ul (0-0.8); ABS Neutrophils 2.8 10^3/ul (1.5-7.7); Hematocrit 38 % (35-47); Hemoglobin 12.7 g/dl (12.0-16.0); Mean Corpuscular HGB Conc 34 g/dl (31-36); Mean Corpuscular Hemoglobin 30 pg (27-31); Mean Corpuscular Volume 90 fL (80-97); Mean Platelet Volume 8.9 um3 (7.4-10.4); Red Blood Count 4.18 10^6/ul (4.0-5.4); Red Cell Distribution Width 14 % (10.5-15); White Blood Count 5.3 10^3/ul (3.5-10.8)
[2017-07-28] MEDS: amLODIPine TAB* 5 MG PO SCH (07:54)
[2017-07-28] MEDS: Ascorbic Acid TAB* 500 MG PO SCH (07:55)
[2017-07-28] MEDS: Cyanocobalamin TAB* 500 MCG PO SCH (07:55)
[2017-07-28] MEDS: Cholecalciferol TAB* 1000 UNITS PO SCH (07:55)
[2017-07-28] MEDS: Omeprazole CAP* 20 MG PO SCH (07:55)
[2017-07-28] MEDS ORDERED: Vancomycin(*) 1,000 MG in NS 0.9% 250 ML* 250 ML IVPB SCH (08:00)
[2017-07-28] MEDS: NS 0.9% 1000 ML* 1,000 ML IV SCH ×2 (08:39→21:33)
[2017-07-28] MEDS ORDERED: Calcium Carbonate TAB* 1250 MG (CALCIUM 500 MG) PO SCH (09:00)
[2017-07-28] MEDS ORDERED: HYDROmorphone INJ* 2 MG/ML CARPUJECT SYRINGE IV SLOW PU PRN (09:28)
[2017-07-28] MEDS ORDERED: cefTRIAXone(*) 2 GM in NS 0.9% 100 ML* 100 ML IVPB SCH (10:00)
[2017-07-28] MEDS: CMC:Cyclosporine 0.05% OPHTH (NF) 0.4 ML VIAL BOTH EYES SCH ×2 (10:01→21:35)
[2017-07-28] MEDS: Acetaminophen TAB* 325 MG PO PRN ×2 (10:08→18:40)
[2017-07-28] MEDS ORDERED: Baclofen TAB* 10 MG PO PRN (11:15)
[2017-07-28] MEDS ORDERED: Potassium Chloride LIQUID* 20 MEQ PACKET PO ONE (11:19)
--- NOTE | 2017-07-28 11:25 | PN ---
Subjective Date of Service: 07/28/17 Interval History: Still complains of severe headache and leg cramps. Pain is uncontrolled and 10/ 10 at worst despite dilaudid, oxycodone, and morphine this morning. No cough, sore throat, rash, blurry vision, weakness, rhinorrhea. Objective Active Medications: Acetaminophen (Tylenol Tab*) 650 mg PO Q4H PRN PRN Reason: FEVER/PAIN Last Admin: 07/28/17 10:08 Dose: 650 mg Al Hydrox/Mg Hydrox/Simethicone (Maalox Plus*) 30 ml PO Q6H PRN PRN Reason: INDIGESTION Amlodipine Besylate (Norvasc Tab*) 2.5 mg PO DAILY [facility] Last Admin: 07/28/17 07:54 Dose: 2.5 mg Ascorbic Acid (Vitamin C Tab*) 500 mg PO DAILY [facility] Last Admin: 07/28/17 07:55 Dose: 500 mg Baclofen (Lioresal Tab*) 10 mg PO TID PRN PRN Reason: SPASMS Calcium Carbonate (Calcium Carbonate Tab*) 1,250 mg PO DAILY [facility] Last Admin: 07/28/17 07:55 Dose: 1,250 mg Cholecalciferol (Vitamin D Tab*) 1,000 units PO DAILY [facility] Last Admin: 07/28/17 07:55 Dose: 1,000 units Cyanocobalamin (Vitamin B12 Tab*) 500 mcg PO DAILY [facility] Last Admin: 07/28/17 07:55 Dose: 500 mcg Cyclosporine (Restasis 0.05% Ophth) 1 drop BOTH EYES BID [facility] PRN Reason: Protocol Last Admin: 07/28/17 10:01 Dose: Not Given Docusate Sodium (Colace Cap*) 100 mg PO BID PRN PRN Reason: CONSTIPATION Last Admin: 07/27/17 23:48 Dose: 100 mg Gabapentin (Neurontin Cap(*)) 300 mg PO BEDTIME [facility] Hydromorphone HCl (Dilaudid Inj*) 1.5 mg IV SLOW PU Q3H [facility] Ceftriaxone Sodium 2 gm/ (Sodium Chloride) 100 mls @ 200 mls/hr IVPB Q12H [facility] Last Admin: 07/28/17 10:40 Dose: 200 mls/hr Acyclovir Sodium 700 mg/ (Sodium Chloride) 264 mls @ 264 mls/hr IVPB Q8H [facility] PRN Reason: As Directed Last Admin: 07/28/17 05:41 Dose: 264 mls/hr Ampicillin Sodium 2 gm/ Sodium (Chloride) 100 mls @ 200 mls/hr IVPB Q4H [facility] Last Admin: 07/28/17 07:54 Dose: 200 mls/hr Vancomycin HCl 1,000 mg/ (Sodium Chloride) 250 mls @ 166.667 mls/hr IVPB Q8H [facility] Last Admin: 07/28/17 08:39 Dose: 166.667 mls/hr Sodium Chloride (Ns 0.9% 1000 Ml*) 1,000 mls @ 150 mls/hr IV PER RATE [facility] Last Admin: 07/28/17 08:39 Dose: 150 mls/hr Omeprazole (Prilosec Cap*) 20 mg PO DAILY [facility] Last Admin: 07/28/17 07:55 Dose: 20 mg Ondansetron HCl (Zofran Inj*) 4 mg IV Q4H PRN PRN Reason: NAUSEA/VOMITING Oxycodone HCl (Roxycodone Tab*) 10 mg PO Q4H PRN PRN Reason: PAIN Last Admin: 07/28/17 09:08 Dose: 10 mg Pharmacy Consult (Vancomycin Per Pharmacy*) 1 note FOLLOW UP .VANC PER PHARMACY [facility] Pharmacy Profile Note (Vancomycin Trough Check) 1 note FOLLOW UP 729 ONE Stop: 07/29/17 07:31 Senna (Senokot Tab*) 1 tab PO BID PRN PRN Reason: CONSTIPATION Last Admin: 07/27/17 23:48 Dose: 1 tab Vital Signs - 8 hr 07/28/17 07/28/17 07/28/17 04:24 04:34 06:02 Temperature 97.9 F Pulse Rate 75 Respiratory 17 20 17 Rate Blood Pressure 103/52 (mmHg) O2 Sat by Pulse 95 Oximetry 07/28/17 07/28/17 07/28/17 07:28 07:54 08:00 Temperature 99.2 F Pulse Rate 82 Respiratory 20 20 20 Rate Blood Pressure 111/53 (mmHg) O2 Sat by Pulse 97 Oximetry 07/28/17 07/28/17 09:08 09:51 Temperature Pulse Rate Respiratory 18 21 Rate Blood Pressure (mmHg) O2 Sat by Pulse Oximetry Oxygen Devices in Use Now: None Appearance: diaphoretic, calm, resting with ice pack over her eyes Eyes: No Scleral Icterus, - - ophthalmodynia Ears/Nose/Mouth/Throat: NL Teeth, Lips, Gums, Clear Oropharnyx, - Neck: NL Appearance and Movements; NL JVP Respiratory: Symmetrical Chest Expansion and Respiratory Effort, Clear to Auscultation Cardiovascular: NL Sounds; No Murmurs; No JVD, RRR Abdominal: NL Sounds; No Tenderness; No Distention, No Hepatosplenomegaly Lymphatic: No Cervical Adenopathy Extremities: No Edema Skin: No Rash or Ulcers Neurological: Alert and Oriented x 3, - - negative brudzinski sign Result Diagrams: 07/28/17 05:11 07/28/17 05:11 Microbiology and Other Data: Microbiology 07/27/17 22:00 Influenza Types A,B Antigen ([place]) - Final Nasopharyngeal Specimen received for Influenza A/B Molecular testing Assess/Plan/Problems-Billing Assessment: - Patient Problems (1) Headache Current Visit: No Status: Acute Code(s): R51 - HEADACHE SNOMED Code(s): 11347021 Comment: In the setting of high fevers, we must evaluate her spinal fluid. I discussed the case with anesthesia, who will consider an LP when her platelet count is closer to 100k Platelets ordered stat; LP paulette so that cultures are worthwhile since she is already on broad spectrum abx. The differential is much broader than just meningitis, especially since she has history of complex migraines (2) Fever Current Visit: Yes Status: Acute Code(s): R50.9 - FEVER, UNSPECIFIED SNOMED Code(s): 740719679 Comment: As above, continue broad spectrum abx to cover both bacterial and viral meningitis, follow up cultures and ideally spinal fluid (3) Thrombocytopenia Current Visit: Yes Status: Acute Code(s): D69.6 - THROMBOCYTOPENIA, UNSPECIFIED SNOMED Code(s): 950038723 Comment: Etiology unclear--likely consumptive in setting of sepsis, also may be medication related since she had been on toradol on last admission Platelets stat and repeat this afternoon Status and Disposition: inpatient
[2017-07-28] MEDS: HYDROmorphone INJ* 2 MG/ML CARPUJECT SYRINGE IV SLOW PU SCH ×5 (11:50→23:57)
[2017-07-28] MEDS ORDERED: Magnesium Oxide TAB* 400 MG PO ONE (12:35)
--- NOTE | 2017-07-28 12:49 | CONS ---
CONSULTATION REPORT: DATE OF CONSULT: 07/28/17 REASON FOR CONSULTATION: Severe headache, fevers. HISTORY OF PRESENT ILLNESS: Ms. Bullard is a 61-year-old female who I know from a prior admission. She was recently admitted on 07/25/17, discharged on . She has a very complicated medical history, was previously seen by Dr. Hi Umanzor on 07/25/17. She has been treated in the past for a history of a central venous thrombosis, was originally on Coumadin, was evaluated at the [facility] where repeat studies apparently showed resolution. She was taken off of that medication. She presented to the hospital on 07/25/17 with a very severe headache. She was admitted on 07/25/17 after developing a severe headache with some temperature, fever to 101, fevers and chills. She came to the ER where an MR venogram was done and upon review showed the possibility of a filling defect unchanged from a year prior. Last year, when she was admitted, she had an MR venogram of the brain interpreted is showing a linear filling defect in the posterior portion of the superior sagittal sinus as well as in the right transverse sigmoid confluence. She was put on Coumadin and had a workup with hypercoagulable state negative. She was anticoagulated for 3 months [address] then [address] Dr[address] Ramirez at the [facility] who repeated the studies and felt that the thrombus had resolved, so she was taken off Coumadin. At the time of her admission on 07.25.17, her MRV showed possible venous sinus thrombosus but subsequent CT venogram of the head, showed no evidence of thrombus. Based on that, it was felt that she likely was suffering from a viral prodrome. By Thursday07/26/17, she was improved, her headache was better and she was discharged home in good condition. She notes no prior history of vomiting, but some mild sore throat. She had no rhinorrhea, no neck stiffness, no diarrhea or vomiting, no recent illnesses, but she does note a tick bite in the past week or so. She does take chronic pain medications for her history of sensory neuropathy. She returned to the ER last night with fevers, chills, nausea, severe headache rated 10/10, throbbing in nature with photophobia. In the ER, she was found to have a rectal temperature of 105. Lab work revealed a normal white count, but platelets were low at 71, her INR was 1.02, PTT of 36.8. C-reactive protein noted to be 22.39 with an ESR of 8. Lumbar puncture was considered for possible meningitis, but because of her platelets, anesthesiology did not feel comfortable with the spinal tap. She was placed on empiric therapy with acyclovir, ceftriaxone, ampicillin and vancomycin, was treated with Dilaudid in the ER, which she states helped and admitted for further workup and pain control. She states that she continues to have pain. She received morphine this morning as her oxycodone did not help relieve the pain. She states that the morphine took her pain from a 10 to 8. She continues to have severe headaches, which are frontal in nature with some photophobia and phonophobia. She denies any significant neck stiffness. She has some nausea, no vomiting, but has anorexia. She notes fevers and chills with sweating and rigors at times. She states that she feels very cold and it is difficult for her to get warm even under blankets. She has been using a cold compress on her head. PAST MEDICAL HISTORY: As noted above. In addition she has a sensory neuropathy followed by Neurology, history of anxiety and depression, hypertension, osteoporosis, prior history of migraines, breast cancer in the past followed by Heme/Onc, and GERD. MEDICATIONS AT HOME: Include: 1. Gabapentin 300 mg p.o. at bedtime. 2. Vitamin B12 500 mcg p.o. daily. 3. Vitamin D 1000 units p.o. daily. 4. Calcium carbonate 500 mg p.o. daily. 5. Ascorbic acid 500 mg p.o. daily. 6. Amlodipine 2.5 mg daily. 7. Cymbalta 90 mg p.o. daily. 8. Cyclosporin 1 drop to both eyes b.i.d. 9. Oxycodone 5 to 10 mg p.o. q.4 hours p.r.n. 10. Omeprazole 20 mg daily. 11. Alendronate 70 mg p.o. weekly. 12. Aspirin 325 mg daily, which had been held and scheduled to be started on . 13. Ketorolac 10 mg p.o. q.6 hours as needed for pain. 14. Zofran. 15. Dilaudid 4 mg p.o. q.6 hours as needed for pain. 16. Tylenol 625 mg q.4 hours as needed. ALLERGIES: She has allergies to SULFA and IODINE. FAMILY HISTORY: Strokes. SOCIAL HISTORY: She lives by herself. Retired teacher. No tobacco, alcohol, or drug use reported. Her daughter is at the bedside today and is her healthcare proxy. REVIEW OF SYSTEMS: In 14-organ systems as noted above, otherwise negative. PHYSICAL EXAM: Temp this morning of 99.2, T-max over the last 24 hours is a rectal temperature of 100.5 yesterday in the ER, pulse of 82, respiratory rate of 20, pulse ox is 97%, blood pressure 111/53. She has been normotensive overnight. In general, she is a well-nourished, well-developed female in acute distress, although she is in a dark room with a ice pack over her head. She states that her current headache pain is 8/10 and recently received morphine. She is normocephalic, atraumatic. Sclerae are anicteric. Mucous membranes are slightly dry. Oropharynx is clear. Nares are patent. Neck is supple. No thyromegaly. No carotid bruits. No meningismus appreciated. She has negative Kernig's and Brudzinski's sign. Chest is clear to auscultation bilaterally. Cardiovascular: Regular rate and rhythm without murmurs. Abdomen is nontender. Extremities: No clubbing, cyanosis, or edema. She has no rashes, no petechiae and her skin is warm and dry. On neurologic exam, she is awake, alert and oriented x3. Her speech is fluent. There is no dysarthria. Repetition is intact. Recall of recent and remote events is intact. Vocabulary is intact. Her mood is dysthymic. Affect is mood congruent. Cranial nerves II through XII are intact. Funduscopic exam showed normal disk on the left difficult to visualize on the right. Pupils are equally round and reactive to light and accommodation. Extraocular muscles are intact without diplopia. Visual pollock are full. Face is symmetric. Facial sensation is intact. Hearing is intact bilaterally. Tongue is midline. Oropharynx: Palate raises symmetrically. Motor Exam: She spontaneously moves all extremities antigravity with good resistance 5/5 throughout. There are no focal deficits. Tone and bulk are both normal. Sensation: She has loss of all modalities in the feet and legs bilaterally, is chronic. No new paraesthesias. Her reflexes are 1+ in the upper extremities bilaterally, 2+ at the patella bilaterally, 2+ at the ankles bilaterally with equivocal Babinski's. No clonus is present. Finger-to- nose and rapid alternating movements are intact without tremor. There is no resting tremor noted. Gait was not tested. DIAGNOSTIC STUDIES/LAB DATA: Lab work includes the urine with 1+ blood, 1+ leukocyte esterase, 2+ wbc's, 3+ rbc's. Urine bacteria absent. CBC this morning, white count of 5.3, hemoglobin of 12.7, hematocrit 38, platelet count of 56 down from 71 yesterday. INR 0.98, PTT of 37.5. Basic metabolic panel this morning is significant for a potassium of 3.2 down from 3.4 yesterday. Calcium is 7.9. Her lactic acid yesterday was 2.1. Influenza A and B are negative. Her prior Lyme disease was negative on prior admission. No imaging was done on this admission, but her CTA on 07/26/17 showed no evidence for aneurysm or venous thrombosis, dolichoectasia of the basal artery noted. MRI of the brain on 07/24/17 showed possible nonocclusive thrombus within the posterior aspect of the superior sagittal sinus unchanged from prior study. No evidence for acute intracranial abnormality otherwise. ASSESSMENT AND PLAN: Ms. Bullard is a 61-year-old female with a history of chronic pain, on chronic pain medications for history of neuropathy, history of migraine headaches in the past, history of possible venous sinus thrombosis in the past, initially treated with Coumadin, subsequent workup at [facility] found no evidence and it was thought that it likely resolved. She was taken off of Coumadin, has been in her usual state of health when she was admitted on with severe headache. Workup revealed no evidence of a sinus thrombosis and it was thought that she was likely suffering from a viral prodrome. She was discharged home with better pain control in good condition on Thursday. She came back to the hospital late yesterday evening with high fevers, shaking chills, nausea, light sensitivity, worsening headache, rated 10/10 in ER, temperature to 105. The plan was to do a lumbar puncture, but her platelet count was noted to be low , so lumbar puncture was held and she was started on empiric antibiotic therapy for possible meningitis including vancomycin, ampicillin, ceftriaxone and acyclovir, admitted for further workup and pain control. Her temperature is improved overnight. She continues to have severe headache requiring pain medication. The plan today is to try for platelet infusion and see if we cannot get her platelets above 100 and then reconsider a lumbar puncture. I did discuss with the daughter and the patient that my suspicion is that she could be suffering from either a viral prodrome or viral meningitis. In any case, we would continue to treat with acyclovir and I told them that I would probably treat her for a full 10 to 14 day course if we cannot get the lumbar puncture. I do think the lumbar puncture would help definitively guide treatment as an outpatient. Plan will be to continue her empiric therapy for now, continue pain control, IV fluids, and monitor closely for any acute changes. I will continue to follow her closely and make further recommendations as necessary. Thank you for the opportunity to participate in the care of this very nice patient. [id number]/[facility] #: [id number] [facility]
[2017-07-28 13:06] LABS: Platelet Count 56 10^3/ul (150-450)
[2017-07-28 16:05] LABS: Mean Platelet Volume 8.4 um3 (7.4-10.4); Platelet Count 54 10^3/ul (150-450)
[2017-07-28 16:16] LABS: Hematocrit 37 % (35-47); Hemoglobin 12.5 g/dl (12.0-16.0); Mean Corpuscular HGB Conc 33 g/dl (31-36); Mean Corpuscular Hemoglobin 30 pg (27-31); Mean Corpuscular Volume 91 fL (80-97); Mean Platelet Volume 8.8 um3 (7.4-10.4); Platelet Count 55 10^3/ul (150-450); Red Blood Count 4.13 10^6/ul (4.0-5.4); Red Cell Distribution Width 14 % (10.5-15); White Blood Count 5.3 10^3/ul (3.5-10.8)
[2017-07-28 18:03] LABS: Hematocrit 37 % (35-47); Hemoglobin 12.5 g/dl (12.0-16.0); Mean Corpuscular HGB Conc 34 g/dl (31-36); Mean Corpuscular Hemoglobin 30 pg (27-31); Mean Corpuscular Volume 90 fL (80-97); Platelet Count 48 10^3/ul (150-450); Red Blood Count 4.15 10^6/ul (4.0-5.4); Red Cell Distribution Width 14 % (10.5-15); White Blood Count 6.3 10^3/ul (3.5-10.8)
--- NOTE | 2017-07-28 20:35 | CONS ---
CONSULTATION REPORT: DATE OF CONSULT: 07/28/17 REQUESTING PHYSICIAN: Mirta Cordero MD CONSULTING SERVICE: Infectious Disease. REASON FOR CONSULTATION: Headache and fever. IMPRESSION: 1. About 5 to 6 days of fever and headache which is mostly frontal, but can involve the whole head along with some photophobia. She has no real neck stiffness and no nuchal rigidity on exam. The differential includes aseptic meningitis due to either viral infection or less likely Lyme's. Other consideration to include a systemic infection with predominant headache and photophobia, anaplasmosis is the common one that likes to do that and is carried by Ixodes ticks and that we have had more recently in this area. It also causes thrombocytopenia and transaminitis which she has, it usually causes leukopenia which she does not yet have. 2. Idiopathic neuropathy. 3. Anxiety and depression. 4. Breast cancer. RECOMMENDATIONS: Stop vancomycin. We will continue ceftriaxone once a day to cover Lyme's. We will keep the ampicillin, stop the acyclovir as herpes meningitis is self limited and she does not have evidence of herpes encephalitis. 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 I will add doxycycline 100 mg by mouth twice a day to cover anaplasmosis that will also cover Lyme's while we are awaiting the tick PCR panel which I ordered, I added the Lyme antibody as well. HISTORY OF PRESENT ILLNESS: This is a 61-year-old woman with a history of headache, fever, malaise about a year ago that was self limited. There was a consideration of venous sinus thrombosis at the time which was felt to be a false positive on the imaging. She is here now with severe headache, malaise, and then fever that developed a day or 2 later. She was admitted to the hospital for evaluation of her venous sinuses which ultimately have felt to be negative. She was discharged home on the , came back on the with severe headache and fever that would not go away. She is better with Dilaudid and resting. She has no numbness or tingling in her arms or legs other than her baseline. Her platelet count on the was 145,000, it is down to 56,000 today. Her white count is normal and her LFTs were normal except for an AST of 45. Yesterday her CRP was 23. Her highest fever was 41 degrees last night. She is on vancomycin, ceftriaxone, acyclovir, ampicillin. Today, she feels a little bit better. She is eating a little bit of food. She is up and moving around somewhat, though that does make her headache a bit worse. She is awaiting a lumbar puncture. PAST MEDICAL HISTORY: 1. Idiopathic neuropathy. 2. Anxiety. 3. Depression. 4. Osteoporosis. 5. Hypertension. 6. Migraine headache. 7. Breast cancer. 8. Gastroesophageal reflux disease. MEDICATIONS: 1. Tylenol. 2. Amlodipine. 3. Ampicillin 2 g every 4 hours. 4. Vitamin C. 5. Baclofen. 6. Calcium. 7. Cholecalciferol. 8. Gabapentin. 9. Dilaudid. 10. Oxycodone. 11. Ceftriaxone 2 g twice a day. 12. Senna. 13. Vancomycin. 14. Acyclovir 700 mg every 8 hours. ALLERGIES: IODINE and SULFA. FAMILY HISTORY: No recurrent infections. SOCIAL HISTORY: She lives in [place]. She had traveled to [place] over the winter, taken ill there, that was in April. She has pet dogs, cat, turtle at home. No other travel, no sick contacts. REVIEW OF SYSTEMS: All negative to 14-point review of systems except as noted above. PHYSICAL EXAM: Vital Signs: Temperature is 37, heart rate 90, respiratory rate 18, blood pressure 117/61, oxygen saturation 96% on room air. General: She is awake, and not in distress. Neurologic: She is oriented x3. Follows all commands. HEENT: There is no conjunctival hemorrhage. Oropharynx without lesions. Neck: Supple without mass. Lymph Nodes: There is no cervical, supraclavicular, inguinal, axillary or epitrochlear lymphadenopathy. Heart: Regular rate and rhythm, without murmurs, rubs or gallops. Lungs: Clear to auscultation bilaterally. Abdomen: Soft, nontender, nondistended. There are bowel sounds present. Skin: There is no rash or splinter hemorrhages. Musculoskeletal: There is no spine tenderness to palpation or joint synovitis. DIAGNOSTIC STUDIES/LAB DATA: White blood cell count 5, hemoglobin 12, platelets 56,000. Creatinine is 0.7. Influenza PCR negative. Urinalysis showed blood, leukocyte esterase. Please see impressions and recommendations outlined above, which I have discussed with Dr. Vicente. Thank you for asking me to see Ms. Bullard in consultation. [id number]/[facility] #: [id number] [facility]
--- NOTE | 2017-07-28 20:43 | PN ---
Progress Note - Progress Note Date of Service: 07/28/17 Note: Paged about third bag of platelets - Patient received 2 bags of platlets and two hours later, her platlets are still trending down. Will hold off on further platlets.
[2017-07-28] MEDS: DOXYcycline CAP(*) 100 MG PO SCH (21:27)
[2017-07-28] MEDS: Gabapentin CAP(*) 300 MG PO SCH (21:27)
[2017-07-28] MEDS: cefTRIAXone(*) 2 GM in NS 0.9% 100 ML* 100 ML IVPB SCH (21:33)
[2017-07-29] MEDS: Ondansetron 40 MG VIAL* 2 MG/ML 20 ML VIAL IV PRN ×2 (00:09→12:01)
[2017-07-29] MEDS: HYDROmorphone INJ* 2 MG/ML CARPUJECT SYRINGE IV SLOW PU SCH ×4 (03:21→12:38)
[2017-07-29] MEDS: Acetaminophen TAB* 325 MG PO PRN ×2 (03:24→16:13)
[2017-07-29] MEDS: Ampicillin IV* 2 GM in NS 0.9% 100 ML* 100 ML IVPB SCH ×2 (03:56→08:12)
[2017-07-29] MEDS: NS 0.9% 1000 ML* 1,000 ML IV SCH (04:25)
[2017-07-29 06:07] LABS: ABS Basophils 0 10^3/ul (0-0.2); ABS Eosinophils 0 10^3/ul (0-0.6); ABS Lymphocytes 2.8 10^3/ul (1.0-4.8); ABS Monocytes 0.8 10^3/ul (0-0.8); ABS Neutrophils 5.1 10^3/ul (1.5-7.7); ABS Nucleated RBC 0 10^3/ul; Eosinophil % 0.1 % (0-6); Hematocrit 36 % (35-47); Hemoglobin 12.2 g/dl (12.0-16.0); Lymphocyte % 31.7 % (25-47); Mean Corpuscular HGB Conc 34 g/dl (31-36); Mean Corpuscular Hemoglobin 31 pg (27-31); Mean Corpuscular Volume 90 fL (80-97); Mean Platelet Volume 10.3 um3 (7.4-10.4); Nucleated Red Blood Cells % 0; Platelet Count 39 10^3/ul (150-450); Red Blood Count 3.99 10^6/ul (4.0-5.4); Red Cell Distribution Width 14 % (10.5-15); White Blood Count 8.7 10^3/ul (3.5-10.8)
[2017-07-29 06:20] LABS: EGFR Non-African American 107.1 (>60)
[2017-07-29] MEDS ORDERED: Vancomycin Trough Check NOTE FOLLOW UP ONE (07:30)
[2017-07-29] MEDS ORDERED: Potassium Chloride IV* 60 MEQ in NS 0.9% 500 ML* 500 ML IVPB ONE (08:00)
[2017-07-29] MEDS ORDERED: KCL 20 MEQ/100 ML IVPREMIX* 20 MEQ/100 ML BAG IV SCH (08:00)
[2017-07-29] MEDS: Ascorbic Acid TAB* 500 MG PO SCH (08:12)
[2017-07-29] MEDS: Cyanocobalamin TAB* 500 MCG PO SCH (08:12)
[2017-07-29] MEDS: amLODIPine TAB* 5 MG PO SCH (08:13)
[2017-07-29] MEDS: Omeprazole CAP* 20 MG PO SCH (08:13)
[2017-07-29] MEDS: Cholecalciferol TAB* 1000 UNITS PO SCH (08:13)
[2017-07-29] MEDS: DOXYcycline CAP(*) 100 MG PO SCH ×2 (08:13→21:03)
[2017-07-29] MEDS: CMC:Cyclosporine 0.05% OPHTH (NF) 0.4 ML VIAL BOTH EYES SCH ×2 (08:21→21:04)
[2017-07-29] MEDS: oxyCODONE TAB* 5 MG TAB PO PRN ×4 (08:25→20:16)
[2017-07-29] MEDS: Senna TAB PO PRN (08:25)
[2017-07-29] MEDS: Docusate CAP* 100 MG PO PRN (08:26)
[2017-07-29] MEDS: cefTRIAXone(*) 2 GM in NS 0.9% 100 ML* 100 ML IVPB SCH ×2 (09:04→21:05)
[2017-07-29] MEDS: Calcium Carbonate TAB* 1250 MG (CALCIUM 500 MG) PO SCH (12:01)
[2017-07-29] MEDS ORDERED: NS 0.9% 1000 ML* 1,000 ML IV SCH (12:16)
[2017-07-29] MEDS ORDERED: Magnesium CITRATE* 300 ML BTL PO ONE (12:35)
[2017-07-29] MEDS ORDERED: Polyethylene Glycol 3350* 17 GM PACKET PO PRN (12:35)
--- NOTE | 2017-07-29 12:52 | PN ---
Subjective Date of Service: 07/29/17 Interval History: Still has severe headache, some relief with po oxycodone/APAP. Appetite poor. No BM since admission. Objective Active Medications: Acetaminophen (Tylenol Tab*) 650 mg PO Q4H PRN PRN Reason: FEVER/PAIN Last Admin: 07/29/17 03:24 Dose: 650 mg Al Hydrox/Mg Hydrox/Simethicone (Maalox Plus*) 30 ml PO Q6H PRN PRN Reason: INDIGESTION Amlodipine Besylate (Norvasc Tab*) 2.5 mg PO DAILY [facility] Last Admin: 07/29/17 08:13 Dose: 2.5 mg Ascorbic Acid (Vitamin C Tab*) 500 mg PO DAILY [facility] Last Admin: 07/29/17 08:12 Dose: 500 mg Baclofen (Lioresal Tab*) 10 mg PO TID PRN PRN Reason: SPASMS Calcium Carbonate (Calcium Carbonate Tab*) 1,250 mg PO DAILY@1100 [facility] Last Admin: 07/29/17 12:01 Dose: 1,250 mg Cholecalciferol (Vitamin D Tab*) 1,000 units PO DAILY [facility] Last Admin: 07/29/17 08:13 Dose: 1,000 units Cyanocobalamin (Vitamin B12 Tab*) 500 mcg PO DAILY [facility] Last Admin: 07/29/17 08:12 Dose: 500 mcg Cyclosporine (Restasis 0.05% Oph) 1 drop BOTH EYES BID [facility] PRN Reason: Protocol Last Admin: 07/29/17 08:21 Dose: Not Given Docusate Sodium (Colace Cap*) 100 mg PO BID PRN PRN Reason: CONSTIPATION Last Admin: 07/29/17 08:26 Dose: 100 mg Doxycycline Hyclate (Vibramycin Cap(*)) 100 mg PO BID [facility] Last Admin: 07/29/17 08:13 Dose: 100 mg Gabapentin (Neurontin Cap(*)) 300 mg PO BEDTIME [facility] Last Admin: 07/28/17 21:27 Dose: 300 mg Ceftriaxone Sodium 2 gm/ (Sodium Chloride) 100 mls @ 200 mls/hr IVPB Q12H [facility] Last Admin: 07/29/17 09:04 Dose: 200 mls/hr Potassium Chloride 60 meq/ (Sodium Chloride) 530 mls @ 88.333 mls/hr IVPB ONCE ONE Stop: 05/09/18 13:59 Last Admin: 07/29/17 09:02 Dose: 88.333 mls/hr Sodium Chloride (Ns 0.9% 1000 Ml*) 1,000 mls @ 50 mls/hr IV PER RATE [facility] Omeprazole (Prilosec Cap*) 20 mg PO DAILY [facility] Last Admin: 07/29/17 08:13 Dose: 20 mg Ondansetron HCl (Zofran Inj*) 4 mg IV Q4H PRN PRN Reason: NAUSEA/VOMITING Last Admin: 07/29/17 12:01 Dose: 4 mg Oxycodone HCl (Roxycodone Tab*) 10 mg PO Q4H PRN PRN Reason: PAIN Last Admin: 07/29/17 12:05 Dose: 10 mg Polyethylene Glycol/Electrolytes (Miralax*) 17 gm PO DAILY PRN PRN Reason: CONSTIPATION Potassium Chloride (Klor Con Er Tab*) 20 meq PO TID [facility] Senna (Senokot Tab*) 1 tab PO BID PRN PRN Reason: CONSTIPATION Last Admin: 07/29/17 08:25 Dose: 1 tab Vital Signs - 8 hr 07/29/17 07/29/17 07/29/17 04:45 06:31 07:15 Temperature 97.8 F Pulse Rate 98 Respiratory 18 18 16 Rate Blood Pressure 140/86 (mmHg) O2 Sat by Pulse 89 Oximetry 07/29/17 07/29/17 07/29/17 07:42 08:00 08:25 Temperature Pulse Rate Respiratory 16 14 16 Rate Blood Pressure (mmHg) O2 Sat by Pulse 96 Oximetry 07/29/17 07/29/17 11:37 12:05 Temperature Pulse Rate Respiratory 18 16 Rate Blood Pressure (mmHg) O2 Sat by Pulse Oximetry Oxygen Devices in Use Now: Nasal Cannula Appearance: Alert, supine in bed with blindfold on. In fair spirits. Looks uncomfortable. Eyes: No Scleral Icterus Neck: NL Appearance and Movements; NL JVP, No Thyroid Enlargement, Masses Respiratory: Symmetrical Chest Expansion and Respiratory Effort, Clear to Auscultation, Clear to Percussion Extremities: No Edema, No Clubbing, Cyanosis, - Skin: No Rash or Ulcers, No Nodules or Sclerosis, - Neurological: Alert and Oriented x 3, NL Sensation Result Diagrams: 07/29/17 05:19 07/29/17 05:19 Microbiology and Other Data: Microbiology 07/27/17 22:00 Influenza Types A,B Antigen ([place]) - Final Nasopharyngeal Specimen received for Influenza A/B Molecular testing Assess/Plan/Problems-Billing Assessment: - Patient Problems (1) Fever Current Visit: Yes Status: Acute Code(s): R50.9 - FEVER, UNSPECIFIED SNOMED Code(s): 673161508 Comment: Continue doxycycline and ceftriaxone. Lyme and tick-borne disease panel pending. (2) Thrombocytopenia Current Visit: Yes Status: Acute Code(s): D69.6 - THROMBOCYTOPENIA, UNSPECIFIED SNOMED Code(s): 531312897 Comment: Etiology unclear--likely consumptive in setting of sepsis, also may be medication related since she had been on toradol on last admission Heparin PF4 Ab add on 07/29. Dr. Antonio to consult. Status and Disposition: inpatient
[2017-07-29] MEDS: Potassium Chlor TAB* 10 MEQ TAB.ER PO SCH ×2 (14:18→21:04)
[2017-07-29] MEDS ORDERED: Magnesium Sulfate 2 GM IV* 2 GM/50 ML BAG IVPB ONE (15:59)
[2017-07-29] MEDS: Gabapentin CAP(*) 300 MG PO SCH (21:03)
--- NOTE | 2017-07-29 23:34 | PN ---
CC: Dr. Antonio * NEUROLOGY FOLLOWUP: DATE OF FOLLOWUP: 07/29/17 LOCATION: She is an inpatient in room 442. HOSPITALIST: Dr. Dye. CHIEF COMPLAINT: Headache. INTERVAL HISTORY: Since I last saw Ms. Bullard in the emergency room, she was readmitted with a fever up to 105 degrees on 07/27/17. She had a severe headache again and had a number of laboratory abnormalities. Specifically, her platelet count had dropped from 145,000 when she first presented to the emergency room on 07/24/17 to 39,000 this morning. Her CBC from 2 days ago was notable for 21% bands and 21% immature granulocytes. Her total white blood cell count has not been elevated, however, and it was 4.7 on 07/25/17. She had a lumbar puncture on 07/28/17 notable for clear spinal fluid with 6 white blood cells per microliter and 9 red blood cells. Protein was normal at 39 and glucose of 66. A spinal fluid Gram stain was negative. Spinal fluid culture as of day 1 is negative as well. Blood cultures have been negative since . Urine culture did grow enterococcus species. She has been on ceftriaxone and doxycycline currently and was on vancomycin and ampicillin prior to that as well. Dr. Ledesma saw her in consultation from Infectious Disease and his report is reviewed. Anaplasmosis was offered as one possible diagnosis particularly with hematological abnormalities. She did have a tick bite about a week before she started to become ill. It was on her left scalp and she was given a prescription for doxycycline tablets, but did not take them. Since admission, she feels much better. She had a pretty bad headache a little while ago, but it feels better now. Her fever has come down nicely from 105 when she came in to 97.4 today. She has not been hypotensive. MEDICATIONS: Reviewed and she is currently on: 1. Amlodipine 2.5 mg p.o. q. day. 2. Baclofen 10 mg p.o. t.i.d. p.r.n. muscle spasms. 3. Ceftriaxone 2 g IV q.12 hours. 4. Doxycycline 100 mg p.o. b.i.d. 5. Gabapentin 300 mg p.o. q.h.s. 6. Omeprazole 20 mg p.o. q. day. 7. Oxycodone 10 mg p.o. q.4 hours as needed for pain. PHYSICAL EXAMINATION: On exam, she is a little photophobic still, but reasonably comfortable. She appears well hydrated. Temperature is 97.4, blood pressure 116/72, heart rate 72 and regular. Respiratory rate is 16 and oxygen saturation is 96% currently on room air. She is alert and oriented and able to give a good detailed history. There is no alteration in her sensorium. Her recent and remote memory are normal. Language is fluent. IMPRESSION AND PLAN: Impression is that of a headache from a systemic infection. There is no evidence of aseptic meningitis. Anaplasmosis is in the differential. Lyme disease is in the differential as well, but typically bad headaches from Lyme disease are associated with aseptic meningitis. Currently, Dr. Antonio is following her and may consider doing a bone marrow biopsy tomorrow if her platelet count drops further. She is being followed by Dr. Ledesma of Infectious Disease as well. At this point, it is clear that she does not have a cerebral vein thrombosis and that it is an infectious etiology to her headache. I will continue to follow her along with you. [id number]/[facility] #: [id number] [place]
[2017-07-30] MEDS: Acetaminophen TAB* 325 MG PO PRN ×3 (05:14→20:44)
[2017-07-30 05:27] LABS: Hematocrit 38 % (35-47); Hemoglobin 12.8 g/dl (12.0-16.0); Mean Corpuscular HGB Conc 34 g/dl (31-36); Mean Corpuscular Hemoglobin 31 pg (27-31); Mean Corpuscular Volume 91 fL (80-97); Mean Platelet Volume 9.5 um3 (7.4-10.4); Platelet Count 79 10^3/ul (150-450); Red Blood Count 4.17 10^6/ul (4.0-5.4); Red Cell Distribution Width 14 % (10.5-15); White Blood Count 8.2 10^3/ul (3.5-10.8)
[2017-07-30 05:46] LABS: EGFR Non-African American 111.6 (>60)
[2017-07-30 05:53] LABS: Monocytes % 11 % (0-7)
[2017-07-30] MEDS: Potassium Chlor TAB* 10 MEQ TAB.ER PO SCH ×3 (08:22→20:44)
[2017-07-30] MEDS: Omeprazole CAP* 20 MG PO SCH (08:22)
[2017-07-30] MEDS: oxyCODONE TAB* 5 MG TAB PO PRN ×6 (08:22→23:30)
[2017-07-30] MEDS: Ascorbic Acid TAB* 500 MG PO SCH (08:22)
[2017-07-30] MEDS: amLODIPine TAB* 5 MG PO SCH (08:22)
[2017-07-30] MEDS: Cholecalciferol TAB* 1000 UNITS PO SCH (08:23)
[2017-07-30] MEDS: DOXYcycline CAP(*) 100 MG PO SCH ×2 (08:23→20:44)
[2017-07-30] MEDS: Cyanocobalamin TAB* 500 MCG PO SCH (08:23)
[2017-07-30] MEDS: CMC:Cyclosporine 0.05% OPHTH (NF) 0.4 ML VIAL BOTH EYES SCH ×2 (08:23→20:45)
--- NOTE | 2017-07-30 08:43 | PN ---
Progress Note - Progress Note Date of Service: 07/30/17 SOAP: Subjective: CC: headache HPI: 61 year old woman with headache, fever, photophobia; tolerating doxycycline well, fever resolved still some sweats. Appetite ok. Nausea this am without abd pain. Headache improving. Objective: Vital Signs Temp 36.4 C 07/30/17 07:41 Pulse 66 07/30/17 07:41 Resp 20 07/30/17 08:22 BP 125/65 07/30/17 07:41 Pulse Ox 97 07/30/17 07:41 Intake & Output 07/29/17 07/30/17 07/30/17 18:59 06:59 18:59 Intake Total 1520 2418 Output Total 650 900 Balance 870 1518 Intake: IV Fluids 680 2418 NS and antibiotics 680 2418 Oral 840 0 Output: Urine 650 900 Other: Estimated Void Large Large # Bowel Movements 0 # Voids 3 1 Gen:awake,no distress HEENT: no thrush Heart:RRR no murmur Lungs:CTA BL Abd:+BS NTND soft Skin: no rash MSK: no joint synovitis Laboratory Results - last 24 hr 07/28/17 07/28/17 07/29/17 05:11 17:25 05:19 WBC RBC Hgb Hct MCV MCH MCHC RDW Plt Count MPV Neut % (Auto) Lymph % (Auto) [place] % (Auto) Eos % (Auto) Baso % (Auto) Absolute Neuts (auto) Absolute Lymphs (auto) Absolute Monos (auto) Absolute Eos (auto) Absolute Basos (auto) Absolute Nucleated RBC Immature Gran % Neutrophils % Band Neutrophils % Lymphocytes % Reactive Lymphs % Monocytes % Eosinophils % Basophils % Nucleated RBC % Abs Neuts (Manual) Abs Lymphs (Manual) Abs Monocytes (Manual) Absolute Eos (Manual) Abs Basophils (Manual) Normal RBC Morphology Sodium 139 Potassium 2.6 L* Chloride 102 Carbon Dioxide 33 H Anion Gap 4 BUN 7 Creatinine 0.57 Est GFR ( Amer) 137.8 Est GFR (Non-Af Amer) 107.1 BUN/Creatinine Ratio 12.3 Glucose 120 H Calcium 7.5 L Magnesium 1.4 L Lactate Dehydrogenase 294 H Fluid Cell Count Rvw By Anaplasma DNA (PCR) Positive A* B. divergens/MO-1 PCR Negative Babesia duncani DNA PCR Negative Babesia microti DNA PCR Negative Lyme Disease Serology Negative Borrelia miyamotoi (PCR) Negative E.chaffeensis DNA (PCR) Negative E. ewingii/canis (PCR) Negative E. muris-like DNA (PCR) Negative Assessment: 1. Anaplasmosis 2. Thrombocytopenia due to #1 3. nausea due to doxycycline Plan: 1. doxycycline 100 mg po bid day 05/06, take with food, zofran prn. FU With me 1 -2 weeks
[2017-07-30] MEDS: Ondansetron 40 MG VIAL* 2 MG/ML 20 ML VIAL IV PRN (08:56)
--- NOTE | 2017-07-30 10:14 | PN ---
Subjective Date of Service: 07/30/17 Interval History: Headache somewhat better. Appetite still poor. No new c/o. Objective Active Medications: Acetaminophen (Tylenol Tab*) 650 mg PO Q4H PRN PRN Reason: FEVER/PAIN Last Admin: 07/30/17 05:14 Dose: 650 mg Al Hydrox/Mg Hydrox/Simethicone (Maalox Plus*) 30 ml PO Q6H PRN PRN Reason: INDIGESTION Amlodipine Besylate (Norvasc Tab*) 2.5 mg PO DAILY [facility] Last Admin: 07/30/17 08:22 Dose: 2.5 mg Ascorbic Acid (Vitamin C Tab*) 500 mg PO DAILY [facility] Last Admin: 07/30/17 08:22 Dose: 500 mg Baclofen (Lioresal Tab*) 10 mg PO TID PRN PRN Reason: SPASMS Last Admin: 07/30/17 08:22 Dose: 10 mg Calcium Carbonate (Calcium Carbonate Tab*) 1,250 mg PO DAILY@1100 [facility] Last Admin: 07/29/17 12:01 Dose: 1,250 mg Cholecalciferol (Vitamin D Tab*) 1,000 units PO DAILY [facility] Last Admin: 07/30/17 08:23 Dose: 1,000 units Cyanocobalamin (Vitamin B12 Tab*) 500 mcg PO DAILY [facility] Last Admin: 07/30/17 08:23 Dose: 500 mcg Cyclosporine (Restasis 0.05% Oph) 1 drop BOTH EYES BID [facility] PRN Reason: Protocol Last Admin: 07/30/17 08:23 Dose: 1 drop Docusate Sodium (Colace Cap*) 100 mg PO BID PRN PRN Reason: CONSTIPATION Last Admin: 07/29/17 08:26 Dose: 100 mg Doxycycline Hyclate (Vibramycin Cap(*)) 100 mg PO BID [facility] Last Admin: 07/30/17 08:23 Dose: 100 mg Gabapentin (Neurontin Cap(*)) 300 mg PO BEDTIME [facility] Last Admin: 07/29/17 21:03 Dose: 300 mg Omeprazole (Prilosec Cap*) 20 mg PO DAILY [facility] Last Admin: 07/30/17 08:22 Dose: 20 mg Ondansetron HCl (Zofran Inj*) 4 mg IV Q4H PRN PRN Reason: NAUSEA/VOMITING Last Admin: 07/30/17 08:56 Dose: 4 mg Oxycodone HCl (Roxycodone Tab*) 10 mg PO Q3H PRN PRN Reason: PAIN Last Admin: 07/30/17 08:22 Dose: 10 mg Polyethylene Glycol/Electrolytes (Miralax*) 17 gm PO DAILY PRN PRN Reason: CONSTIPATION Potassium Chloride (Klor Con Er Tab*) 20 meq PO TID [facility] Last Admin: 07/30/17 08:22 Dose: 20 meq Senna (Senokot Tab*) 1 tab PO BID PRN PRN Reason: CONSTIPATION Last Admin: 07/29/17 08:25 Dose: 1 tab Vital Signs - 8 hr 07/30/17 07/30/17 07/30/17 04:25 07:41 08:22 Temperature 98.1 F 97.6 F Pulse Rate 69 66 Respiratory 16 16 20 Rate Blood Pressure 130/74 125/65 (mmHg) O2 Sat by Pulse 95 97 Oximetry Oxygen Devices in Use Now: None Appearance: Alert, suppine in bed. Looks a little more comfortable than yesterday. Eyes: No Scleral Icterus Extremities: No Edema, No Clubbing, Cyanosis, - Skin: No Rash or Ulcers, No Nodules or Sclerosis Neurological: Alert and Oriented x 3 Result Diagrams: 07/30/17 05:09 07/30/17 05:09 Microbiology and Other Data: Microbiology 07/27/17 22:00 Influenza Types A,B Antigen ([place]) - Final Nasopharyngeal Specimen received for Influenza A/B Molecular testing Assess/Plan/Problems-Billing Assessment: - Patient Problems (1) Fever Current Visit: Yes Status: Acute Code(s): R50.9 - FEVER, UNSPECIFIED SNOMED Code(s): 155614873 Comment: Continue doxycycline for 2 weeks after discharge. Positive PCR for anaplama. Discussed with Dr. Ledesma. (2) Thrombocytopenia Current Visit: Yes Status: Acute Code(s): D69.6 - THROMBOCYTOPENIA, UNSPECIFIED SNOMED Code(s): 135946814 Comment: Improved. Should have another platelet wount in a week to demonstrate complete resolution. Status and Disposition: inpatient
[2017-07-30] MEDS: Calcium Carbonate TAB* 1250 MG (CALCIUM 500 MG) PO SCH (11:02)
[2017-07-30 14:22] LABS: CSF VDRL Negative (Negative)
--- NOTE | 2017-07-30 20:37 | CONS ---
NEUROLOGY FOLLOWUP REPORT: DATE OF FOLLOWUP: 07/30/17 HOSPITALIST: Dr. Dye. LOCATION: She is an inpatient in room 442. CHIEF COMPLAINT: Headache, fever. INTERVAL HISTORY: Since yesterday Ms. Bullard continues with some bad headaches and sweats. Her anaplasma PCR came back positive. The rest of her tick-borne disease panel was negative. She is now on oral doxycycline only and intravenous medications have been discontinued. MEDICATIONS: Reviewed and she is on: 1. Doxycycline 100 mg p.o. b.i.d. 2. Gabapentin 300 mg p.o. q.h.s. 3. Oxycodone 10 mg p.o. q.3 hours as needed for pain. 4. Colace 100 mg p.o. b.i.d. 5. Vitamin B12 500 mg p.o. daily. 6. Vitamin D 1000 units p.o. q. day. 7. Baclofen 10 mg p.o. t.i.d. p.r.n. spasms. 8. Amlodipine 2.5 mg p.o. q. day. PHYSICAL EXAMINATION: She is diaphoretic. Temperature most recently 100 degrees orally, blood pressure 122/68, heart rate 86 and regular. Respiratory rate is 16, oxygen saturation is 92% on room air. She is alert and oriented with intact recent and remote memory. Language is fluent. LABORATORY DATA: Other laboratory data is notable for platelet count is now up to 79,000. IMPRESSION: Anaplasmosis. Her platelets have fortunately started to turn around. White blood cell count remains in normal range. Her neutrophils are a little bit low percentage goldberg. PLAN: She will continue on doxycycline for 2 weeks total. When she is able to function well enough to go home, she will be discharged. [id number]/[facility] #: [id number] [facility]
[2017-07-30] MEDS: Gabapentin CAP(*) 300 MG PO SCH (20:43)
--- NOTE | 2017-07-31 03:11 | CONS ---
CC: Yung Ivy MD; Guanako Ledesma MD; Hi Umanzor MD * MEDICAL ONCOLOGY/HEMATOLOGY CONSULTATION NOTE: DATE OF CONSULT: 07/29/17 REASON FOR CONSULT: Thrombocytopenia. HISTORY OF PRESENT ILLNESS: Clotilde Bullard is a 61-year-old female with a previous history of severe headaches in July 2016. At that time, she was admitted with fevers and headaches and was felt to have a venous sinus thrombosis. She was hospitalized for approximately 10 days, treated with heparin and switched over to Coumadin. She was seen by a neurology specialist in [place] as well. Repeat imaging revealed that the abnormality that was suspected had resolved. She received a total of 6 months of Coumadin. Once she started Coumadin, she quickly improved in terms of fevers and headaches at that time. The patient developed similar symptoms in early July 2017. She presented to the emergency room where she had imaging studies done. MRV in the emergency room showed a possible nonocclusive venous thrombus, but CTV did not reveal evidence for this. 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 There was a question whether this could be a viral or other infectious syndromes. Her underlying idiopathic neuropathy seemed stable. She was admitted overnight and discharged to home, but then presented back to the hospital at this time with ongoing fevers and headaches. The headaches are mostly in the head and back of the neck. She developed a fever to 105.6. She had severe sweating along with the headaches. The headaches then changed to being the frontal regions and radiating to the left scientologist. Since in the hospital, she has improved modestly. In August 2016, her platelet count was 273,000, initial platelet count this month 145,000, on 07/24/17 dropping to 71,000, on 07/27/17 at the time of this admission went down to 56,000, on repeated occasions on 07/28/17 of 48,000 and later in the day 39,000 on the day of this consultation. Anesthesia wanted to do a LP, but was reluctant to do so given her low platelet count. Accordingly, she was given a transfusion of two pheresis platelet packs on 07/28/17 before the lumbar puncture was performed. She had absolutely no response to the platelet transfusions. She continued receiving narcotics for her headaches along with use of multiple antimicrobials. She has been treated with ceftriaxone, vancomycin along with acyclovir with a question of herpes meningitis and then doxycycline was added to cover anaplasmosis and potential Lyme disease. PCR panel for tickborne diseases was ordered along with a Lyme antibody by Dr. Guanako Ledesma on 07/27/17. He felt that this was most likely an infectious etiology including aseptic meningitis with viral or Lyme disease. Also the possibility of tick-borne diseases should be considered. PAST MEDICAL HISTORY: 1. 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 2. Anxiety, depression. 3. Osteoporosis. 4. Hypertension. 5. History of headaches in the distant past. 6. LCIS, non-invasive cancer treated with lumpectomy. Has seen both Dr. Huerta and Dr. Vasquez in the past in 2010 and in 2014. Did receive 5 units of tamoxifen and continues to do well with yearly mammogram. 7. GERD. MEDICATIONS AT THE TIME OF ADMISSION: Included: 1. Gabapentin 300 mg at h.s. 2. Amlodipine 2.5 mg daily. 3. Cymbalta 90 mg daily. 4. Cyclosporine drops bilaterally. 5. Oxycodone 5 mg q.4 hours p.r.n. 6. Omeprazole 20 mg daily. 7. Alendronate 70 mg weekly. 8. Aspirin 325 mg daily. 9. Ketorolac 10 mg q.6 p.r.n. pain. 10. Zofran 4 mg q.6 hours p.r.n. nausea. 11. Dilaudid 4 mg q.6 hours p.r.n. pain. 12. Tylenol 625 mg q.4 hours p.r.n. 13. Vitamin B12. 14. Vitamin D. 15. Calcium carbonate. 16. Ascorbic acid. ALLERGIES: IODINE and SULFA. FAMILY HISTORY: Both parents from CVAs. SOCIAL HISTORY: The patient is a retired teacher, lives alone. Cigarettes; none for 30 years, did smoke for 10 years, starting at 13 years of age. No significant alcohol. Healthcare proxy is her daughter, Tosin Acosta. REVIEW OF SYSTEMS: Negative expect as discussed above. PHYSICAL EXAMINATION: A 61-old female in no acute distress, lying reasonably comfortably on the bed, although complaining of significant headaches. Vital Signs: Blood pressure 123/80, pulse 65, afebrile, last documented fever was on the morning of this consultation at 0400 hours, temperature of 100.3, having been 102.9 yesterday. HEENT: PERRL. EOMI. No erythema or exudates. No palpable cervical, supraclavicular, axillary adenopathy. Lungs: Clear. Heart: Regular rate and rhythm without murmurs, rubs or gallops. Abdomen: Soft, nontender without masses or organomegaly. Extremities: No edema. Neurologic Exam: Not performed by myself. The patient was about to be examined by Dr. Umanzor at the time of our visit. LABORATORY STUDIES: CBC with a white count of 8700, hematocrit 36, hemoglobin 12.2, platelet count 39,000 with an essentially normal differential except modestly elevated monocytes. Chemistry studies; sodium 139, potassium has been low at 3.2 yesterday and is 2.6 today, chloride 102, bicarb 33, BUN 7, creatinine 0.57, glucose 120. LFT's were modestly elevated earlier in the admission. LDH is added and is 294. IMPRESSION: Thrombocytopenia without other cell lines being abnormal. Peripheral smear is reviewed. There are no significant abnormalities noted in any of the white cells. There is no toxic granulation. There are diminished platelets noted on the peripheral smear. There are no significant schistocytes seen, maybe 1 per every 2 to 3 high powered field. Impression: Continued thrombocytopenia. It was discussed with the patient there are a number of etiologies for this. These would include: 1. Thrombocytopenia related to tick-borne disease. This has multiple etiologies as will be described below. 2. Thrombotic thrombocytopenic purpura would have been a possibility with fevers and headaches along with thrombocytopenia without peripheral smear abnormalities as discussed above and with an essentially normal LDH and an improving headache, this possibility has been essentially ruled out. 3. Related to sepsis, she does not appear to be having worsening sepsis and her platelet count is dropping, so that makes this less likely. 4. Disseminated intravascular coagulation, again without peripheral smear abnormalities. This is very unlikely. 5. Autoimmune destruction of platelets is certainly possible. If her platelet count continues to drop and her tick-borne disease panel comes back negative, a bone marrow aspirate and biopsy will be necessary. This would be necessary in order to then give a course of steroids or rituximab or IV IgG to improve platelet count if it is continuing to drop. That is why a bone marrow aspirate and biopsy cannot be performed today. I have explained that it is too late in the afternoon and also if platelet counts were to improve in the next 24 to 48 hours that this would obviate the need for this procedure. What appears to be the most likely diagnosis based on the headaches occurring in the setting of high high fevers and thrombocytopenia would be that of a tick- borne disease. In this situation, there are multiple etiologies for potentially reduced platelets. These would include hypersplenism, non-immune platelet consumption, thrombotic thrombocytopenic purpura, direct infection of the platelets, immune mediated platelet destruction. Tick-borne diseases are among the situations that have the most dramatic effects on platelets with elevated cell lines due to the fact that there are multiple mechanisms of which these diseases affect the platelets. There is clear documentation of bone marrow CD4 positive stem cells being infected by certain tick-borne viruses including the [place] tick fever and Ehrlichia. In this situation, however, typically we will see low counts in all cell lines. Non-immune platelet consumption certainly can be seen by itself in the tick- borne diseases with a disseminated intravascular coagulation occurring. Thrombotic thrombocytopenic purpura can also occur as noted above, although does not appear situation. Direct infection of the platelets has been shown to occur with Ehrlichia and other tick-borne diseases. Finally, the most likely common cause for low platelets and tick-borne diseases is immune mediated platelet destruction/idiopathic thrombocytopenic purpura. This can be to the point of being with incredibly low platelet counts. This has occurred in many different tick-borne diseases including Q fever, babesiosis, Rickettsia , Navy spotted fever, Mediterranean spotted fever and anaplasmosis. If this turns out to be related to a tick-borne disease, then the most important treatment for the thrombocytopenia will be treatment of the infection and not specific treatment for the platelet count. [id number]/[facility] #: [id number] [facility]
[2017-07-31] MEDS: Acetaminophen TAB* 325 MG PO PRN ×3 (05:59→19:54)
[2017-07-31] MEDS: oxyCODONE TAB* 5 MG TAB PO PRN ×6 (05:59→23:49)
[2017-07-31] MEDS: Omeprazole CAP* 20 MG PO SCH (06:05)
[2017-07-31] MEDS: CMC:Cyclosporine 0.05% OPHTH (NF) 0.4 ML VIAL BOTH EYES SCH ×3 (09:12→22:08)
[2017-07-31] MEDS: Ascorbic Acid TAB* 500 MG PO SCH (09:12)
[2017-07-31] MEDS: amLODIPine TAB* 5 MG PO SCH (09:12)
[2017-07-31] MEDS: Cyanocobalamin TAB* 500 MCG PO SCH (09:12)
[2017-07-31] MEDS: Potassium Chlor TAB* 10 MEQ TAB.ER PO SCH ×3 (09:12→22:05)
[2017-07-31] MEDS: Cholecalciferol TAB* 1000 UNITS PO SCH (09:12)
[2017-07-31] MEDS: DOXYcycline CAP(*) 100 MG PO SCH ×2 (09:12→22:05)
--- NOTE | 2017-07-31 09:49 | PN ---
Progress Note - Progress Note Date of Service: 07/31/17 Note: Time spent on discharge 45 minutes.
[2017-07-31] MEDS: Calcium Carbonate TAB* 1250 MG (CALCIUM 500 MG) PO SCH (10:37)
[2017-07-31] MEDS: Ondansetron 40 MG VIAL* 2 MG/ML 20 ML VIAL IV PRN (19:54)
[2017-07-31] MEDS: Gabapentin CAP(*) 300 MG PO SCH (22:04)
[2017-07-31] MEDS: Ondansetron ODT TAB* 4 MG SL PRN (23:25)
--- NOTE | 2017-08-01 03:11 | DS ---
CC: Dr. Ivy; Dr. Ledesma * DISCHARGE SUMMARY: DATE OF ADMISSION: DATE OF DISCHARGE: 07/31/17 HISTORY OF PRESENT ILLNESS: The patient is admitted with a chief complaint of intractable headache. She has a prior history of venous sinus thrombosis. In the emergency room, her rectal temperature was 105. The patient thinks she may have had a fever off and on since 07/23/17. The back of her neck and her head were throbbing. Her leg and knee joints were hurting. On admission, she had thrombocytopenia. There was a question of possible meningitis. She was started on antibiotics. Lumbar puncture was performed despite her thrombocytopenia. The results were unremarkable. Her PCR for anaplasma came back positive on the tick-borne panel. She was treated with doxycycline. Her temperature resolved rapidly. On 07/29/17, her peak temperature was 100.3. After that, it never reached 99 degrees. Her headache gradually improved, although it does not resolve completely at the time of this dictation. She looked much better clinically. She still felt weak and a little sweaty. Her platelet count did start to rise. I would check her platelet count in about a week to make sure there is complete resolution. Her last platelet count was 79,000 on 07/30/17. The lowest platelet count was 39,000. She will take 14 days of doxycycline following discharge. She will follow up with Dr. Ledesma. FINAL DIAGNOSES: 1. Anaplasmosis. 2. 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 3. Hypertension. 4. History of breast cancer. 5. Gastroesophageal reflux disease. DISCHARGE MEDICATIONS: 1. Acetaminophen 650 mg every 4 hours p.r.n. 2. Doxycycline 100 mg b.i.d. 3. Polyethylene glycol 17 g daily p.r.n. 4. Gabapentin 300 mg h.s. 5. Vitamin B12 500 mcg daily. 6. Vitamin D 1000 units daily. 7. Calcium carbonate 500 mg daily. 8. Ascorbic acid 500 mg daily. 9. Amlodipine 2.5 mg daily[address] 10. [address] 90 mg daily. 11. Cyclosporine 0.05% ophthalmic 1 drop both eyes b.i.d. 12. Oxycodone 5 mg as prescribed. 13. Omeprazole 20 mg daily. 14. Alendronate 70 mg daily. 15. Aspirin 325 mg daily. 16. Ketorolac 10 mg every 6 hours p.r.n. 17. Ondansetron ODT 4 mg sublingual every 6 hours p.r.n. [id number]/[facility] #: [id number] [facility]
[2017-08-01] MEDS: Acetaminophen TAB* 325 MG PO PRN (03:24)
[2017-08-01] MEDS: oxyCODONE TAB* 5 MG TAB PO PRN ×4 (03:25→16:44)
[2017-08-01] MEDS: Omeprazole CAP* 20 MG PO SCH (05:41)
[2017-08-01] MEDS: amLODIPine TAB* 5 MG PO SCH (08:21)
[2017-08-01] MEDS: Ascorbic Acid TAB* 500 MG PO SCH (08:24)
[2017-08-01] MEDS: Cyanocobalamin TAB* 500 MCG PO SCH (08:24)
[2017-08-01] MEDS: Potassium Chlor TAB* 10 MEQ TAB.ER PO SCH ×2 (08:24→13:06)
[2017-08-01] MEDS: DOXYcycline CAP(*) 100 MG PO SCH (08:24)
[2017-08-01] MEDS: Cholecalciferol TAB* 1000 UNITS PO SCH (08:25)
[2017-08-01] MEDS: CMC:Cyclosporine 0.05% OPHTH (NF) 0.4 ML VIAL BOTH EYES SCH (08:26)
[2017-08-01] MEDS: Ondansetron ODT TAB* 4 MG SL PRN ×2 (08:54→17:04)
[2017-08-01] MEDS: Calcium Carbonate TAB* 1250 MG (CALCIUM 500 MG) PO SCH (12:00)
[2017-08-01] MEDS ORDERED: Ondansetron ODT TAB* 4 MG PO ONE (17:07)
[2017-08-01] MEDS ORDERED: DOXYcycline CAP(*) 100 MG PO ONE (18:00)
[2017-08-01 23:12] VITALS: BP 145/96
== END 2017-08-01 23:13 | disposition home or self-care (01) | DRG 724 ==
LOC: ED 18:24 → MEDTELE 21:35
PROVIDERS: ADMIT Pediatrics; ATTEND Internal Medicine
PROC: 009U3ZX Drainage of Spinal Canal, Percutaneous Approach, Diagnostic (ICD-10-PCS; 2017-07-28)
PROC: 30233R1 Transfusion of Nonautologous Platelets into Peripheral Vein, Percutaneous Approach (ICD-10-PCS; principal; 2017-07-28 16:05)
DX: A77.49 Other ehrlichiosis (principal); D69.6 Thrombocytopenia, unspecified; I10 Essential (primary) hypertension; F41.9 Anxiety disorder, unspecified; F32.9 Major depressive disorder, single episode, unspecified; G43.909 Migraine, unspecified, not intractable, without status migrainosus; G60.9 Hereditary and idiopathic neuropathy, unspecified; K21.9 Gastro-esophageal reflux disease without esophagitis; M81.0 Age-related osteoporosis without current pathological fracture; R40.2142 Coma scale, eyes open, spontaneous, at arrival to emergency department; R40.2252 Coma scale, best verbal response, oriented, at arrival to emergency department; R40.2362 Coma scale, best motor response, obeys commands, at arrival to emergency department; B35.1 Tinea unguium; G60.8 Other hereditary and idiopathic neuropathies; H53.149 Visual discomfort, unspecified; G89.29 Other chronic pain; Z88.2 Allergy status to sulfonamides; Z91.041 Radiographic dye allergy status; Z86.718 Personal history of other venous thrombosis and embolism; Z85.3 Personal history of malignant neoplasm of breast; Z82.3 Family history of stroke; Z80.51 Family history of malignant neoplasm of kidney; Z79.82 Long term (current) use of aspirin; Z88.8 Allergy status to other drugs, medicaments and biological substances; Z82.0 Family history of epilepsy and other diseases of the nervous system; Z87.891 Personal history of nicotine dependence
CPT/HCPCS: 36415; 62270; 71045; 80048; 80053; 81003; 81015; 82945; 83605; 83615; 83735; 84157; 84484; 85025; 85049; 85060; 85610; 85652; 85730; 86022; 86140; 86592; 86618; 87040; 87070; 87077; 87086; 87186; 87205; 87502; 87529; 87798; 87899; 89051; 99223; 99291; A9270-GY; J0133; J0290; J0696; J1170; J1644; J2270; J3370; J3475; J3480; P9035

== ENCOUNTER 2017-11-23 16:33 | Observation (INO) | payer BC ==
--- NOTE | 2017-11-23 17:35 | ED ---
Abdominal Pain/Female - HPI Summary HPI Summary: The pt is a 62 y/o female presenting [facility] c/o diffuse abd pain since 1 day ago worsened today. Yesterday, [place], breaking 2 ribs. She went to the ED at [place]. The abd pain is rated 8/10 in severity. She notes R-sided back pain and loss of appetite but denies nausea. The back pain is aggravated by movement. - History of Current Complaint Chief Complaint: EDChestWallPain Stated Complaint: RIB INJURY/ABD SWELLING Time Seen by Provider: 11/23/17 17:09 Hx Obtained From: Patient Onset/Duration: Sudden Onset, Lasting Days - 2 days, Still Present, Worse Since - Today Timing: Constant Severity Currently: Severe Pain Intensity: 8 Pain Scale Used: 0-10 Numeric Location: Diffuse Radiates: Yes Radiates to: Back Aggravating Factor(s): Movement Associated Signs and Symptoms: Positive: Back Pain, Decreased Appetite. Negative: Nausea Allergies/Adverse Reactions: Allergies Allergy/AdvReac Type Severity Reaction Status Date / Time iodine Allergy Rash Verified 11/23/17 17:03 Sulfa (Sulfonamide Allergy Rash Verified 11/23/17 17:03 Antibiotics) CT CONTRAST Allergy Vomiting Uncoded 11/23/17 17:03 PMH/Surg Hx/FS Hx/Imm Hx Previously Healthy: No Endocrine/Hematology History: Reports: Hx Anticoagulant Therapy - was on warfarin 07/2016-11/2016, DC'd by Dr. Ramirez Denies: Hx Diabetes Cardiovascular History: Reports: Hx Hypertension - ON MEDS Denies: Hx Pacemaker/ICD Respiratory History: Denies: Hx Asthma History: Denies: Hx Renal Disease Musculoskeletal History: Reports: Other Musculoskeletal History - bilat knee surgery Sensory History: Denies: Hx Cataracts, Hx Contacts or Glasses, Hx Hearing Aid Opthamlomology History: Denies: Hx Cataracts, Hx Contacts or Glasses Neurological History: Reports: Hx Migraine, Hx Peripheral Neuropathy, Other Neuro Impairments/Disorders - peripheral neuropathy Denies: Hx Seizures Psychiatric History: Reports: Hx Depression Denies: Hx Panic Disorder - Cancer History Cancer Type, Location and Year: Lt BREAST CARCINOMA 2003 & LUMPECTOMY Hx Chemotherapy: No - TAMOXIFEN ( NO LONGER TAKING) Hx Radiation Therapy: No - Surgical History Surgery Procedure, Year, and Place: BILATERAL KNEE SURGERIES; meniscus tears. LT BREAST LUMPECTOMY. BROKEN FEMUR CHILD METAL TAKEN OUT. Rt SHOULDER - RCT Hx Anesthesia Reactions: No Infectious Disease History: No Infectious Disease History: Denies: Traveled Outside the [place] in Last 30 Days - Family History Known Family History: Positive: Other - brain aneurysm in grandmother - Social History Occupation: Employed Full-time Lives: With Family Alcohol Use: None Hx Substance Use: No Substance Use Type: Reports: None Hx Tobacco Use: Yes Smoking Status (MU): Former Smoker Review of Systems Constitutional: Negative - Loss of appetite Positive: Abdominal Pain. Negative: Nausea Positive: Other - Positive: 2 broken ribs, R sided back pain All Other Systems Reviewed And Are Negative: Yes Physical Exam - Summary Physical Exam Summary: Appearance: The patient is well-nourished in no acute distress and in no acute pain. Skin: The skin is warm and dry and skin color reflects adequate perfusion. HEENT: The head is normocephalic and atraumatic. The pupils are equal and reactive. The conjunctivae are clear and without drainage. Nares are patent and without drainage. Mouth reveals moist mucous membranes and the throat is without erythema and exudate. The external ears are intact. The ear canals are patent and without drainage. The tympanic membranes are intact. Neck: The neck is supple with full range of motion and non-tender. There are no carotid bruits. There is no neck vein distension. Respiratory: Chest is non-tender. Lungs are clear to auscultation and breath sounds are symmetrical and equal. Cardiovascular: Heart is regular rate and rhythm. There is no murmur or rub auscultated. There is no peripheral edema and pulses are symmetrical and equal. Abdomen: The abdomen is soft and non-tender. There are normal bowel sounds heard in all four quadrants and there is no organomegaly palpated. Musculoskeletal: There is para lumbar tenderness noted. Extremities are non- tender with full range of motion. There is good capillary refill. There is no peripheral edema or calf tenderness elicited. Neurological: Patient is alert and oriented to person, place and time. The patient has symmetrical motor strength in all four extremities. Cranial nerves are grossly intact. Deep tendon reflexes are symmetrical and equal in all four extremities. Psychiatric: The patient has an appropriate affect and does not exhibit any anxiety or depression. Triage Information Reviewed: Yes Vital Signs On Initial Exam: Initial Vitals Temp Pulse Resp BP Pulse Ox 96.5 F 73 17 118/85 96 11/23/17 16:59 11/23/17 16:59 11/23/17 16:59 11/23/17 16:59 11/23/17 16:59 Vital Signs Reviewed: Yes Diagnostics - Vital Signs Vital Signs Temp Pulse Resp BP Pulse Ox 11/23/17 16:59 96.5 F 73 17 118/85 96 - Laboratory Result Diagrams: 11/23/17 17:58 11/23/17 17:58 Lab Statement: Any lab studies that have been ordered have been reviewed, and results considered in the medical decision making process. - CT Chest/ Abd / Pel CT CT Interpretation Completed By: Radiologist - IMPRESSION:1. Multiple right rib fractures with associated hemothorax. No pneumothorax identified. The ED physician reviewed this radiology report. Abdominal Pain Fem Course/Dx - Course Course Of Treatment: Ms. Bullard slipped and fell back onto cement steps about 24 hours prior to presentation. She was evaluated in the emergency department at that time for back pain and diagnosis having rib fractures. Her pain is worse today and she feels bloated in her abdomen; she denies shortness of breath. Her vital signs are stable here and her abdomen was soft and nontender. CT scan of her chest abdomen pelvis revealed posterior rib fractures of the right eighth and ninth and 10th ribs with a small hemothorax. She is on chronic pain medication of oxycodone 20 mg 6 times a day. She was admitted to the hospital for observation with a diagnosis of multiple rib fractures and hemothorax. It is this is likely stable given the length of time and her presentation. - Diagnoses Provider Diagnoses: Multiple rib fractures, Hemothorax, Intractable pain - Provider Notifications Discussed Care Of Patient With: Guru Lyon - Hospitalist Time Discussed With Above Provider: 20:00 Instructed by Provider To: Admit As Inpatient Discharge - Sign-Out/Discharge Documenting (check all that apply): Patient Departure - Admit - Discharge Plan Condition: Stable Disposition: ADMITTED TO [facility] - Billing Disposition and Condition Condition: STABLE Disposition: Admitted to [facility] - Attestation Statements Document Initiated by Scribe: Yes Documenting Scribe: Kaylin Hernandez Provider For Whom Scribe is Documenting (Include Credential): Dr. Adelso Galaviz MD Scribe Attestation: I, Kaylin Hernandez , scribed for Dr. Adelso Galaviz MD on 11/24/17 at 1532. Scribe Documentation Reviewed: Yes Provider Attestation: The documentation as recorded by the scribe, Kaylin Hernandez accurately reflects the service I personally performed and the decisions made by me, Dr. Adelso Galaviz MD
[2017-11-23] MEDS ORDERED: NS 0.9% 1000 ML* 1,000 ML IV ONE (17:47)
[2017-11-23] MEDS ORDERED: Ondansetron INJ* 2 MG/ML VIAL IV ONE (17:47)
[2017-11-23] MEDS ORDERED: HYDROmorphone INJ* 1 MG/ML CARPUJECT SYRINGE IV ONE (17:47)
[2017-11-23] MEDS ORDERED: HYDROmorphone INJ1* 1 MG/ML SYRINGE ONE (17:50)
--- OUTSIDE RECORDS SUMMARY | 2017-11-23 17:50 | XMS REPORT ---
:1955 External Reference #:[id number] Author Organization [employer] [facility] Address [address] [place] [address] Phone [phone] Care Team Providers Name Role Phone Yung Ivy MD Primary Care Physician Unavailable Payers Type Date Identification Numbers Payment Provider Subscriber Commercial Policy Number: [id number] [employer] Jeronimo Castellano PayID: [id number] [address] [address] [place] [address] Medigap Part B Expires: 2016 Policy Number: [employer] Jeronimo Castellano [id number] PayID: [id number] [address] [place] [id number] Problems Date Description Provider Status Onset: 06/22/2014 Polyneuropathy Samantha May M.D. Active Onset: 06/22/2014 Cramp in limb Samantha May M.D. Active Onset: 12/28/2014 Skin sensation disturbance Samantha May M.D. Active Onset: 12/28/2014 Dementia Samantha May M.D. Active Note: not an accurate dx....can't delete it.....bryce menon Onset: 03/28/2015 Localized, primary osteoarthritis Kaitlynn Eason M.D. Active Onset: 07/05/2015 Carpal tunnel syndrome Samantha May M.D. Active Onset: 01/10/2016 Dizziness Samantha May M.D. Active Social History Type Date Description Comments ETOH Use Denies alcohol use Smoking Patient is a former smoker Allergies, Adverse Reactions, Alerts Date Description Reaction Status Severity Comments 08/03/2012 Sulfa Antibiotics Nausea and Vomiting active 08/03/2012 NKDA inactive Medications Medication Date Status Form Strength Qnty SIG Indications Ordering Provider Gabapentin 11/03/ Active Tablets 600mg 90tab 2 tabs by G60.9 Ryan 2013 s mouth at Srinivasan, bedtime and 1 tab by mouth as needed Cymbalta / Active Caps DR 30mg 270ca 3 tabs by Samantha Matias 0000 Part ps mouth Yadira, every day M.D. Alendronate / Active Tablets 70mg 1 po qwk Unknown Sodium 0000 Omeprazole / Active Capsules 20mg 1 po qd Unknown 0000 DR Vitamin D-1000 / Active Tablets 1000Unit 90tab 1 by mouth Unknown Maximum 0000 s every day Strength Vitamin B / Active Tablets 1 by mouth Unknown Complex 0000 every day Amlodipine / Active Tablets 2.5mg qd Unknown Besylate 0000 Oxycodone HCL / Active Tablets 5mg prn Shallish, 0000 MD Yung Ondansetron HCL 08/04/ Hx Tablets 4mg 30tab one by A77.49 Guanako Goins 2017 - s mouth Macqueen, 08/12/ every 8 M.D. 2018 hours as needed for nausea Hydrocodone-Polo 01/28/ Hx Tablets 5-325mg 20tab 1-2 by S52.501D Peggy betheainolucie 2016 mouth Romeo, 08/03/ every 6 hr M.D. 2018 prn prn. Voltaren 05/12/ Hx Gel 1% 200gm apply 2 Kaitlynn 2017 - grams to Jenaro, 08/12/ affected M.D. 2018 area 2-3 times daily for pain Klonopin 02/10/ Hx Tablets 0.5mg 90tab 1/2 to 1 Samantha Matias 2015 - s tab by Yadira, 01/07/ mouth M.D. 2016 2-3x/day as directed. Tramadol HCL 11/03/ Hx Tablets 50mg 60tab 1 tab by 356.9 Samantha Matias 2013 - s mouth Yadira, 02/08/ every 8-12 M.D. 2013 hours as needed Naproxen 08/12/ Hx Tablets 500mg 60tab 1 tab by Kaitlynn 2013 - s mouth Jenaro, 02/08/ twice a M.D. 2013 day. Take with food. Cymbalta 08/02/ Hx Caps DR 30mg 270ca 3 caps by 356.9 Samantha Matias 2013 - Part ps mouth Yadira, 08/11/ every day M.D. 2013 as directed Gabapentin 08/02/ Hx Tablets 600mg 180ta 1-2 tabs 356.9 Samantha Matias 2013 - bs by mouth Yadira, 08/11/ every day M.D. 2013 at bedtime as directed Lyrica 11/19/ Hx Capsules 50mg 90cap 2 - 3 caps Samantha Matias 2012 - s by mouth Yadira, 07/21/ every M.D. 2013 night as directed Voltaren 09/24/ Hx Gel 1% Alverto 2012 Salome Garcia, 02/22/ M.D. 2012 Cymbalta 04/20/ Hx Caps DR 60mg 30cap 1 po qam Samantha Matias 2012 - Part s together Yadira, 08/11/ with one M.D. 2013 30 mg cap as directed Cymbalta 04/20/ Hx Caps DR 30mg 30cap 1 po qd Samantha Matias 2012 - Part s with 60 mg Yadira, 08/11/ tab M.D. 2013 Cymbalta 03/18/ Hx Caps DR 30mg 90cap 3 caps by Samantha Matias 2011 - Part s mouth Yadira, 04/20/ every day M.D. 2012 Gabapentin 01/19/ Hx Tablets 600mg 90tab 2-3 tabs Samantha Matias 2011 - s by mouth Yadira, 08/03/ every day M.D. 2012 at bedtime as directed Hydrocodone/Polo / Hx Tablets 5-325mg 40tab 1 ta po Unknown taminophen 0000 - s prn 2013 Multivitamins / Hx Capsules 30cap 1 capsule Unknown 0000 - s hipolito;y 2013 Cod Liver Oil / Hx 1 cap po Unknown 0000 - daily 2013 Vitamin D High / Hx Capsules 1000Unit 1 by mouth Unknown Potency 0000 - every day 2013 Calcium / Hx Tablets 1200mg 1 by mouth Unknown 0000 - daily 2013 Cymbalta / Hx Caps DR 60mg 90cap 1 po qd Samantha Matias 0000 - Part s Yadira, 12/28/ Gillian 2014 Gabapentin / Hx Capsules 100mg 90cap 2 po hs, Unknown - s gradually 02/08/ up to 3 2013 tid prn pain Hydrocodone-Polo / Hx Tablets 5-325mg as needed Unknown taminophen - 2017 Calcium 1000 + / Hx Tablets 1000-800mg 1 by mouth Unknown D 0000 - -Unit every day 2014 Cod Liver Oil / Hx Capsules 1000mg 1 po qd Unknown - 2017 Blood Pressure Unknown Medication - 2016 Coumadin Unknown 2016 Medications Administered in Office Medication Date Status Form Strength Qnty SIG Indications Ordering Provider Depomedrol Administered Injection Peggy 40MG Shai Romeo M.D. Depomedrol Administered Injection Kaitlynn 40MG Shai Eason M.D. Depomedrol Administered Injection Kaitlynn 40MG Shai Eason M.D. Depomedrol Administered Injection Kaitlynn 40MG Shai Eason M.D. Depomedrol Administered Injection Kaitlynn 40MG Shai Eason M.D. No Injection Administered Injection Jyothi 017 ROSE MARIE Acosta Depomedrol Administered Injection Kaitlynn 40MG Aries Eason M.D. Depomedrol Administered Injection Kaitlynn 40MG Aries Eason M.D. Depsarahrol Administered Injection Kaitlynn 40MG Aries Eason M.D. Depomedrol Administered Injection Kaitlynn 40MG Aries Eason M.D. Depomedrol Administered Injection Kaitlynn 40MG Aries Eason M.D. Depomedrol Administered Injection Kaitlynn 40MG Aries Eason M.D. Depomedrol Administered Injection Kaitlynn 40MG uLis Eason M.D. Depomedrol Administered Injection Kaitlynn 40MG Luis Eason M.D. Depomedrol Administered Injection Kaitlynn 40MG Luis Eason M.D. Depomedrol Administered Injection Kaitlynn 40MG 016 Gillian Eason Depomedrol Administered Injection Kaitlynn 40MG Luis Eason M.D. Depomedrol Administered Injection Kaitlynn 40MG 016 Gillian Eason Depomedrol Administered Injection Kaitlynn 80MG 015 Gillian Eason Depomedrol Administered Injection Kaitlynn 80MG 015 Gillian Eason Depomedrol Administered Injection Kaitlynn 80MG Vishal Eason M.D. Synvisc Or Administered Injection Kaitlynn Synvisc-One Vishal Eason M.D. Injection 1 MG Synvisc Or Administered Injection Kaitlynn Synvisc-One Vishal Eason M.D. Injection 1 MG Synvisc Or Administered Injection Kaitlynn Synvisc-One Vishal Eason M.D. Injection 1 MG Synvisc Or Administered Injection Kaitlynn Synvisc-One Vishal Eason M.D. Injection 1 MG Depomedrol Administered Injection Kaitlynn 80MG Vishal Eason M.D. Depomedrol Administered Injection Rommel Young, 80MG 011 M.DBeau Vital Signs Date Vital Result Comment 11/09/2017 Height 66 inches 5'6" Weight 150.00 lb Heart Rate 72 /min BP Systolic 118 mmHg BP Diastolic 74 mmHg Respiratory Rate 12 /min Pain Level 4 BMI (Body Mass Index) 24.2 kg/m2 09/07/2017 Height 66 inches 5'6" Weight 143.00 lb BP Systolic Sitting 130 mmHg BP Diastolic Sitting 78 mmHg Respiratory Rate 16 /min Body Temperature 97.4 F Pain Level 3 BMI (Body Mass Index) 23.1 kg/m2 08/31/2017 Height 66 inches 5'6" Weight 148.00 lb BP Systolic Sitting 128 mmHg BP Diastolic Sitting 90 mmHg Respiratory Rate 16 /min Body Temperature 98.3 F Pain Level 6 BMI (Body Mass Index) 23.9 kg/m2 08/12/2017 Height 66 inches 5'6" Weight 148.00 lb Heart Rate 82 /min BP Systolic Sitting 142 mmHg BP Diastolic Sitting 97 mmHg Respiratory Rate 16 /min Body Temperature 98.8 F Pain Level 2 BMI (Body Mass Index) 23.9 kg/m2 08/04/2017 Height 66 inches 5'6" Weight 148.12 lb Heart Rate 72 /min BP Systolic Sitting 118 mmHg BP Diastolic Sitting 82 mmHg Respiratory Rate 14 /min Body Temperature 98.0 F BMI (Body Mass Index) 23.9 kg/m2 07/09/2017 Height 66 inches 5'6" Heart Rate 62 /min BP Systolic 130 mmHg BP Diastolic 76 mmHg Respiratory Rate 16 /min Body Temperature 97.8 F Pain Level 2 04/27/2017 Height 66 inches 5'6" Weight 160.00 lb BP Systolic 118 mmHg BP Diastolic 62 mmHg Respiratory Rate 15 /min Body Temperature 97.5 F Pain Level 3 BMI (Body Mass Index) 25.8 kg/m2 04/17/2017 Height 66 inches 5'6" Weight 160.00 lb BP Systolic 136 mmHg BP Diastolic 90 mmHg Body Temperature 98.6 F BMI (Body Mass Index) 25.8 kg/m2 03/30/2017 Body Temperature 98.1 F 02/25/2017 Height 67 inches 5'7" Weight 160.00 lb Heart Rate 85 /min BP Systolic 122 mmHg BP Diastolic 88 mmHg Body Temperature 97.0 F BMI (Body Mass Index) 25.1 kg/m2 02/04/2017 Height 67 inches 5'7" Weight 160.00 lb BP Systolic 128 mmHg BP Diastolic 74 mmHg Body Temperature 97.2 F Pain Level 0 BMI (Body Mass Index) 25.1 kg/m2 01/28/2017 Height 67 inches 5'7" Weight 160.00 lb Heart Rate 69 /min BP Systolic 131 mmHg BP Diastolic 90 mmHg Body Temperature 97.2 F BMI (Body Mass Index) 25.1 kg/m2 01/16/2017 Height 67 inches 5'7" Weight 160.00 lb BP Systolic 140 mmHg BP Diastolic 90 mmHg Body Temperature 97.6 F BMI (Body Mass Index) 25.1 kg/m2 01/08/2017 Height 67 inches 5'7" Weight 160.00 lb Heart Rate 78 /min BP Systolic Sitting 130 mmHg BP Diastolic Sitting 80 mmHg Respiratory Rate 16 /min BMI (Body Mass Index) 25.1 kg/m2 12/05/2016 Height 67 inches 5'7" Weight 160.00 lb Heart Rate 56 /min BP Systolic 118 mmHg BP Diastolic 85 mmHg Body Temperature 97.3 F Pain Level 4 BMI (Body Mass Index) 25.1 kg/m2 09/01/2016 Height 67 inches 5'7" Weight 165.00 lb Heart Rate 95 /min BP Systolic 122 mmHg BP Diastolic 97 mmHg BMI (Body Mass Index) 25.8 kg/m2 06/12/2016 Height 67 inches 5'7" Weight 160.00 lb Heart Rate 72 /min BP Systolic Sitting 116 mmHg BP Diastolic Sitting 78 mmHg Respiratory Rate 14 /min BMI (Body Mass Index) 25.1 kg/m2 04/23/2016 Height 67 inches 5'7" Weight 160.00 lb Heart Rate 87 /min BP Systolic 135 mmHg BP Diastolic 94 mmHg Pain Level 8 BMI (Body Mass Index) 25.1 kg/m2 02/07/2016 Height 67 inches Weight 162.00 lb Heart Rate 72 /min BP Systolic Sitting 140 mmHg BP Diastolic Sitting 90 mmHg BMI (Body Mass Index) 25.4 kg/m2 01/22/2016 Weight 162.00 lb Heart Rate 76 /min BP Systolic 132 mmHg BP Diastolic 82 mmHg Respiratory Rate 16 /min Body Temperature 97.3 F 01/11/2016 Height 67 inches 5'7" Weight 160.00 lb Respiratory Rate 16 /min Pain Level 5 BMI (Body Mass Index) 25.1 kg/m2 01/10/2016 Height 67 inches 5'7" Weight 160.00 lb Heart Rate 68 /min BP Systolic Sitting 120 mmHg BP Diastolic Sitting 80 mmHg Respiratory Rate 14 /min BMI (Body Mass Index) 25.1 kg/m2 10/22/2015 Height 67 inches 5'7" Weight 165.00 lb Pain Level 6 BMI (Body Mass Index) 25.8 kg/m2 07/05/2015 Height 67 inches 5'7" Weight 165.00 lb Heart Rate 64 /min BP Systolic Sitting 132 mmHg BP Diastolic Sitting 84 mmHg Respiratory Rate 16 /min BMI (Body Mass Index) 25.8 kg/m2 06/29/2015 Height 67 inches 5'7" Weight 167.00 lb Heart Rate 67 /min BP Systolic 149 mmHg BP Diastolic 100 mmHg BMI (Body Mass Index) 26.2 kg/m2 03/28/2015 Height 67 inches 5'7" Weight 167.00 lb Pain Level 6 BMI (Body Mass Index) 26.2 kg/m2 12/28/2014 Height 67 inches 5'7" Weight 167.00 lb Heart Rate 68 /min BP Systolic Sitting 134 mmHg BP Diastolic Sitting 86 mmHg Respiratory Rate 16 /min BMI (Body Mass Index) 26.2 kg/m2 09/27/2014 Height 67 inches 5'7" Weight 167.00 lb Pain Level 8 BMI (Body Mass Index) 26.2 kg/m2 06/22/2014 Height 67 inches 5'7" Weight 167.00 lb Heart Rate 68 /min BP Systolic Sitting 128 mmHg BP Diastolic Sitting 80 mmHg Respiratory Rate 16 /min BMI (Body Mass Index) 26.2 kg/m2 04/13/2014 Height 67 inches 5'7" Weight 160.00 lb Heart Rate 69 /min BP Systolic 161 mmHg BP Diastolic 102 mmHg BMI (Body Mass Index) 25.1 kg/m2 04/10/2014 Height 67 inches 5'7" Weight 164.00 lb Pain Level 4 BMI (Body Mass Index) 25.7 kg/m2 02/09/2014 Height 67 inches 5'7" Weight 164.00 lb Heart Rate 88 /min BP Systolic Sitting 118 mmHg BP Diastolic Sitting 80 mmHg Respiratory Rate 16 /min BMI (Body Mass Index) 25.7 kg/m2 12/07/2013 Height 67 inches 5'7" Weight 167.00 lb Heart Rate 66 /min BMI (Body Mass Index) 26.2 kg/m2 11/14/2013 Height 67 inches 5'7" Heart Rate 70 /min BP Systolic 124 mmHg BP Diastolic 80 mmHg 11/03/2013 Height 67 inches 5'7" Weight 170.00 lb Heart Rate 72 /min BP Systolic Sitting 120 mmHg BP Diastolic Sitting 70 mmHg Respiratory Rate 16 /min BMI (Body Mass Index) 26.6 kg/m2 2013 Height 67 inches 5'7" Weight 170.00 lb Heart Rate 69 /min BMI (Body Mass Index) 26.6 kg/m2 09/21/2013 Height 67 inches 5'7" Weight 170.00 lb Pain Level 4 BMI (Body Mass Index) 26.6 kg/m2 09/01/2013 Height 67 inches 5'7" Weight 170.00 lb Heart Rate 76 /min BMI (Body Mass Index) 26.6 kg/m2 08/12/2013 Height 67 inches 5'7" Weight 170.00 lb Heart Rate 61 /min BP Systolic 149 mmHg BP Diastolic 94 mmHg BMI (Body Mass Index) 26.6 kg/m2 02/22/2013 Heart Rate 76 /min BP Systolic Sitting 130 mmHg BP Diastolic Sitting 78 mmHg Respiratory Rate 18 /min 09/10/2012 Height 66 inches 5'6" Weight 170.00 lb Heart Rate 60 /min BP Systolic 128 mmHg BP Diastolic 80 mmHg Respiratory Rate 12 /min BMI (Body Mass Index) 27.4 kg/m2 08/03/2012 Heart Rate 72 /min BP Systolic Sitting 150 mmHg BP Diastolic Sitting 90 mmHg Respiratory Rate 16 /min 05/15/2010 Weight 150.00 lb Heart Rate 67 /min BP Systolic 132 mmHg BP Diastolic 89 mmHg Results Test Date Test Result H/L Range Note Laboratory test 07/27/2017 Rapid Influenza A B SEE RESULT BELOW 1 finding Antigen Rapid Influenza A & 07/27/2017 Influenza A NEGATIVE Negative 2 B Molecular Molecular Influenza B Molecular NEGATIVE Negative 1 SEE RESULT BELOW Name: JERONIMO CASTELLANO : [address]: Jeanette Middleton MD Acct: [id number] Unit: [id number] AGE: 61 Location: ED Re07/27/17 SEX: F Status: REG ER SPEC: [id number] VONNIE: 07/27/[address]: Mirta Cordero DO REQ: [id number] RECD: 07/27/17 STATUS: VALERIY HARTMAN DR: Jeanette Ivy MD _ SOURCE: [facility]: ORDERED: Flu A B Request Procedure Result Reported Site Rapid Influenza A B Request Final 07/27/17- 2207 ML Specimen received for Influenza A/B Molecular testing * ML - Main Lab . END OF REPORT DEPARTMENT OF PATHOLOGY, [address] [place] [address] Roberto Ignacio M.D. Director [facility] # [id number] 2 Devops Consultant: [id number] Procedures Date CPT Code Description Status 11/09/2017 Inject/Drain Joint/Bursa Small W/O US Completed 08/31/2017 Inject/Drain Joint/Bursa Major W/O US Completed 04/17/2017 Inject/Drain Joint/Bursa Major W/O US Completed 01/16/2017 30499 Closed Treatment Distal Radial FX W/Manipulation Completed 12/05/2016 Inject/Drain Joint/Bursa Major W/O US Completed 09/01/201684980 Inject/Drain Joint/Bursa Major W/O US Completed 04/23/201680541 Inject/Drain Joint/Bursa Major W/O US Completed 01/11/201624731 Inject/Drain Joint/Bursa Major W/O US Completed 10/22/2015 92532 Inject/Drain Joint/Bursa Major W/O US Completed 06/29/2015 35429 Inject/Drain Joint/Bursa Major W/O US Completed 03/28/2015 63850 Inject/Drain Joint/Bursa Major W/O US Completed 09/27/2014 41187 Inject/Drain Joint/Bursa Major W/O US Completed 04/10/2014 27640 Inject/Drain Joint/Bursa Major W/O US Completed 12/07/2013 85316 Inject/Drain Joint/Bursa Major W/O US Completed 2013 78924 Inject/Drain Joint/Bursa Major W/O US Completed 09/28/2013 27892 Inject/Drain Joint/Bursa Major W/O US Completed 09/21/2013 93316 Inject/Drain Joint/Bursa Major W/O US Completed 08/12/2013 70310 Xray Knee 3 Views Completed 08/12/2013 86746 Xray Knee 3 Views Completed 08/12/201315879 Inject/Drain Joint/Bursa Major W/O US Completed 06/12/2011 55857 Xray Knee 3 Views Completed 06/12/2011 22565 Rad Exam; Knee, Ap&L Completed 07/08/2010 25111 Xray Knee 3 Views Completed 07/08/201017537 Inject/Drain Joint/Bursa Major W/O US Completed 12/28/2009 82176 Arthroscopy Shoulder,W/Rotator Cuff Repair Completed 12/28/2009 87735 Arthroscopy Shoulder,W/Rotator Cuff Repair Completed 12/28/2009 53833 Arthroscopy,Shoulder Decompression Of Subacromial Space Completed W/Acromio 12/28/2009 16211 Arthroscopy,Shoulder Decompression Of Subacromial Space Completed W/Acromio 12/13/2007 55139 ECHO/Stress Completed 12/13/2007 97013 ECHO/Stress Completed 12/13/2007 22909 Stress Test Completed Encounters Type Date Location Provider CPT E/M Dx Office Visit 09/07/2017 [facility] Kaitlynn Eason M.D. 15667 M25.561 8:45a [facility] M25.562 M25.461 M25.462 M17.0 M21.061 M21.162 Office Visit 08/12/2017 1:15p [place] [address] S92.515A [facility] Office Visit 08/04/2017 10:50a [facility] Chi Goins 46295 A77.49 Infectious Diseases Gillian Machado Z79.2 R53.83 Office Visit 07/31/2017 1:22p [facility], Solomon Dye, 62343 A77.49 Hospitalists Gillian G62.9 I10 R51 Office Visit 07/30/2017 11:07a [facility] Hi Umanzor, 05148 R51 Gillian A77.49 Office Visit 07/30/2017 10:38a [facility] Guanako Machado, 40894 A77.49 Infectious Diseases Gillian R11.0 T36.4x5A Office Visit 07/30/2017 1:21p [facility], Solomon Dye, 78234 A77.49 Hospitalists Gillian G62.9 I10 Office Visit 07/29/2017 11:07a [facility] Hi Umanzor, 70173 R51 Gillian Office Visit 07/29/2017 1:21p [facility], Solomon Dye, 17453 R51 Hospitalists Gillian G62.9 I10 Z86.718 Office Visit 07/28/2017 1:20p [facility], Maureen Vicente, 70816 R51 Hospitalists G62.9 I10 Office Visit 07/28/2017 10:24a [facility] Chi Machado, 72823 R51 Infectious Diseases Gillian R50.9 H53.149 D69.6 R74.0 G60.9 Office Visit 07/28/2017 11:06a [facility] Pranav Trinh, 67029 R51 Gillian R50.9 Office Visit 07/27/2017 1:19p [facility] [address] R51 Hospitalists G62.9 I10 Z86.718 Office Visit 07/26/2017 11:04a [facility] Pranav Ziggy, 46027 R51 MLena I77.89 Office Visit 07/26/2017 2:47p [facility] ALEX Pruett 96057 R51 Hospitalists G08 Office Visit 07/25/2017 11:03a [facility] Hi Umanzor, 52445 R51 MLena Office Visit 07/25/2017 2:46p [facility] Obdulia Vaughan N.PBeau 48001 R51 Hospitalists G08 Office Visit 07/09/2017 1:45p [facility] Bel Horn, 03787 M25.531 Of Joanna TROTTER S60.221D Office Visit 04/27/2017 10:15a [facility] Peggy Romeo, 19395 S52.501D Of Joanna French Office Visit 01/08/2017 2:45p [facility] Samantha May, 63997 G62.9 Services Of Galen French G08 Z86.69 Office Visit 08/25/2016 4:04p [facility] John Banks, 63593 B34.9 Assoc,pc ALEX Hospitalists G08 G62.9 I10 Office Visit 08/24/2016 4:03p [facility] Angie Conrad, 17821 B34.9 Hospitalists D.O. G08 G62.9 I10 Office Visit 08/23/2016 4:03p [facility] Angie Conrad, 99806 B34.9 Hospitalists D.O. G08 G62.9 I10 Office Visit 08/23/2016 3:25p [facility] Herb Jones, 56996 G08 MBeauDBeau R51 Office Visit 08/22/2016 3:18p [facility] Hi Umanzor, 56293 R51 Gillian B34.9 G08 Office Visit 08/22/2016 4:02p [facility] Angie Houston, 69519 B34.9 Hospitalists D.O. G08 G62.9 I10 Office Visit 08/21/2016 3:10p [facility] Hi Umanzor, 32669 R51 Gillian G08 B34.9 Office Visit 08/21/2016 4:02p [facility] Angie Houston, 19215 B34.9 Hospitalists D.O. G08 G62.9 I10 Office Visit 08/20/2016 4:01p [facility] Angie Houston, 40347 B34.9 Hospitalists D.O. G08 G62.9 I10 Office Visit 08/20/2016 10:14a [facility] Guanako Machado, 81928 R51 Infectious Diseases Gillian G08 Office Visit 08/20/2016 3:00p [facility] [address] G08 Office Visit 08/19/2016 4:00p [facility], Angie Conrad, 87768 B34.9 Hospitalists D.O. A87.9 G62.9 I10 Office Visit 08/19/2016 10:08a [facility] Guanako Machado, 37715 R51 Infectious Diseases Gillian M79.1 R50.9 Office Visit 08/18/2016 2:58p [facility] Hi Umanzor, 41754 R51 Gillian R50.9 Office Visit 08/18/2016 4:00p [facility] Nagie Houston, 04025 B34.9 Hospitalists D.O. A87.9 G62.9 I10 Office Visit 08/17/2016 3:59p [facility] Angie Houston, 67473 B34.9 Hospitalists D.O. A87.9 G62.9 I10 Office Visit 08/16/2016 3:59p [facility] Chinmay Chavira, 16270 R50.9 Hospitalists MLena,FACP G43.009 R65.10 Office Visit 08/15/2016 3:58p [facility], Maksim Dunbar, 44968 R50.9 Hospitalists N.P. R65.10 I10 G62.9 Office Visit 06/12/2016 3:30p [facility] Samantha May, 21602 G60.9 Services Of Relief Docking Master M.D. R53.83 R42 Office Visit 02/07/2016 8:45a [facility] Samantha May, 86200 G60.9 Services Of [employer] Master M.D. R42 Office Visit 01/22/2016 11:30a [facility] [place] [address] N64.59 [facility] Docking Master Office Visit 01/10/2016 3:45p [facility] Samantha May, 48518 R20.2 Services Of Relief Docking Master M.D. G60.9 R42 Office Visit 07/05/2015 3:45p [facility] Samantha May, 12931 G60.9 Services Of [employer] Docking Master M.D. G56.02 G56.01 Office Visit 12/28/2014 3:45p [facility] Samantha May, 66483 R20.2 Services Of [employer] Master M.D. R20.8 G60.9 Office Visit 06/22/2014 10:00a [facility] Samantha May, 88731 782.0 Services Of [employer] Docking Master M.D. 356.4 729.82 Office Visit 04/13/2014 2:30p [facility] Of Alverto Garcia 08909 356.9 C.[facility].ABeau French 736.79 Office Visit 04/10/2014 8:30a [facility] Of Kaitlynn Eason M.D. 48627 715.96 [facility] Office Visit 02/09/2014 3:00p [facility] Samantha May, 74814 782.0 Services Of Relief Docking Master Nohelia.DBeau 356.9 Office Visit 11/14/2013 8:30a [facility] Of Kaitlynn Eason M.D. 93769 715.96 [facility] Office Visit 11/03/2013 9:15a [facility] Samantha May, 70887 356.9 Services Of [employer]ing Master M.DBeau 782.0 Office Visit 09/01/2013 2:45p [facility] Of Kaitlynn Eason M.D. 38597 715.96 [facility] Office Visit 08/12/2013 1:15p [facility] Of Kaitlynn Eason M.D. 96818 715.96 [facility] Office Visit 08/02/2013 3:45p [facility] Samantha May, 56244 356.9 Services Of Relief Docking Master M.D. Office Visit 02/22/2013 3:45p [facility] Samantha May, 43220 356.9 Services Of Relief Docking Master M.D. 724.2 Office Visit 12/06/2012 4:00p [facility] Of Alverto Garcia 09221 728.71 [facility] M.D. Office Visit 11/25/2012 2:15p [facility] Of Rommel Charles M.D. 53962 715.96 [facility] 728.71 Office Visit 11/19/2012 1:00p [facility] Samantha May, 38545 356.9 Services Of Relief Docking Master M.DBeau 719.49 Office Visit 09/24/2012 4:30p [facility] Of Alverto Garcia 91361 715.17 [facility] M.D. Office Visit 09/10/2012 12:00p [facility] Samantha May, 42483 356.9 Services Of Relief Docking Master M.D. Office Visit 08/27/2012 2:45p [facility] Of Alverto Garcia 29397 825.0 [facility] M.D. Office Visit 08/04/2012 12:45p [facility] Of Alverto Garcia 88602 728.71 [facility] M.D. Office Visit 08/03/2012 3:45p [facility] Samantha May, 12661 356.9 Services Of Relief Docking Master M.D. 729.5 Office Visit 02/03/2012 3:45p [facility] Samantha May, 68101 356.9 Services Of Relief Docking Master M.D. Office Visit 12/23/2011 3:15p [facility] Samantha May, 98469 356.9 Services Of Relief Docking Master M.D. Office Visit 11/18/2011 3:45p [facility] Samantha May, 65248 356.9 Services Of [employer] Master Gillian Office Visit 06/12/2011 2:15p [facility] Rommel Charles M.D. 90084 716.96 [facility] Office Visit 07/08/2010 3:30p [facility] Rommel Charles M.D. 73124 716.96 [facility] Office Visit 05/15/2010 10:30a [facility] Rommel Charles M.D. 49695 840.4 [facility] Office Visit 04/11/2010 3:30p [facility] Rommel Charles M.D. 49579 840.4 [facility] Office Visit 12/12/2009 9:30a [facility] Rommel Charles M.D. 80405 840.4 [facility] Plan of Care Future Appointment(s):01/19/2018 1:30 pm - Kaitlynn Eason M.D. at [facility]01/04/2018 9:00 am - Kaitlynn Eason M.D. at [facility] [facility]11/09/2017 - Peggy Romeo M.D.[id number] Oth extrartic fx low end r rad, 7thDFollow up:Follow up: As [id number] Sprain of carpal joint of right wrist, subsequent encounter
[2017-11-23 18:04] LABS: ABS Basophils 0.1 10^3/ul (0-0.2); ABS Eosinophils 0.1 10^3/ul (0-0.6); ABS Lymphocytes 3.2 10^3/ul (1.0-4.8); ABS Monocytes 0.8 10^3/ul (0-0.8); ABS Neutrophils 6.7 10^3/ul (1.5-7.7); ABS Nucleated RBC 0 10^3/ul; Hematocrit 42 % (35-47); Hemoglobin 13.9 g/dl (12.0-16.0); Lymphocyte % 29.7 % (25-47); Mean Corpuscular HGB Conc 34 g/dl (31-36); Mean Corpuscular Hemoglobin 31 pg (27-31); Mean Corpuscular Volume 91 fL (80-97); Mean Platelet Volume 7.8 um3 (7.4-10.4); Nucleated Red Blood Cells % 0; Platelet Count 270 10^3/ul (150-450); Red Blood Count 4.56 10^6/ul (4.00-5.40); Red Cell Distribution Width 15 % (10.5-15); White Blood Count 10.9 10^3/ul (3.5-10.8)
[2017-11-23 18:19] LABS: EGFR Non-African American 72.2 (>60)
--- NOTE | 2017-11-23 18:58 | RAD ---
EXAM: CT Abdomen and Pelvis Without Intravenous Contrast CLINICAL HISTORY: 62 years old, female; Pain and injury or trauma; Fall; Initial encounter; Fracture, traumatic; Other: Back; Closed fracture; Multiple ribs; Right; Prior surgery; Surgery date: 6+ months; Surgery type: Left breast lumpectomy; Patient HX: HX breast ca. Fall, rt rib FX. Back pain and bloated belly per pt. TECHNIQUE: Axial computed tomography images of the abdomen and pelvis without intravenous contrast. All CT scans at this facility use at least one of these dose optimization techniques: automated exposure control; mA and/or kV adjustment per patient size (includes targeted exams where dose is matched to clinical indication); or iterative reconstruction. Coronal and sagittal reformatted images were created and reviewed. COMPARISON: No relevant prior studies available. FINDINGS: Lung bases: Unremarkable. No mass. No consolidation. ABDOMEN: Liver: Multiple low attenuation lesions in the liver, the largest of which measures approximately 35 mm. Gallbladder and bile ducts: Unremarkable. No calcified stones. No ductal dilation. Pancreas: Unremarkable. No ductal dilation. Spleen: Unremarkable. No splenomegaly. Adrenals: Unremarkable. No mass. Kidneys and ureters: Unremarkable. No obstructing stones. No hydronephrosis. Stomach and bowel: Prominent amount of retained fecal material in the colon. No obstruction. No mucosal thickening. PELVIS: Appendix: No findings to suggest acute appendicitis. Bladder: Unremarkable. No stones. Reproductive: Unremarkable as visualized. ABDOMEN and PELVIS: Intraperitoneal space: Unremarkable. No free air. No significant fluid collection. Bones/joints: Degenerative changes of the lumbar spine. No acute fracture. No dislocation. Soft tissues: Unremarkable. Vasculature: Atherosclerotic calcification. No abdominal aortic aneurysm. Lymph nodes: Unremarkable. No enlarged lymph nodes. IMPRESSION: 1. No acute intra-abdominal findings. EXAM: CT Chest Without Intravenous Contrast CLINICAL HISTORY: 62 years old, female; Pain and injury or trauma; Fall; Initial encounter; Fracture, traumatic; Other: Back; Closed fracture; Multiple ribs; Right; Prior surgery; Surgery date: 6+ months; Surgery type: Left breast lumpectomy; Patient HX: HX breast ca. Fall, rt rib FX. Back pain and bloated belly per pt. TECHNIQUE: Axial computed tomography images of the chest without intravenous contrast. All CT scans at this facility use at least one of these dose optimization techniques: automated exposure control; mA and/or kV adjustment per patient size (includes targeted exams where dose is matched to clinical indication); or iterative reconstruction. Coronal and sagittal reformatted images were created and reviewed. COMPARISON: A/P WO CT ABD/PEL W/O 08/15/2016 6:25 PM FINDINGS: Lungs: Unremarkable. No mass. No consolidation. Pleural space: Right hemothorax. No pneumothorax. No significant effusion. Heart: Unremarkable. No cardiomegaly. No significant pericardial effusion. Bones/joints: Fractures of the right eighth, ninth, and 10th ribs posteriorly with subcutaneous air present. There is posterior displacement of the lateral aspect of the eighth rib fracture. Degenerative changes of the thoracic spine. No dislocation. Soft tissues: See above. Vasculature: Atherosclerotic calcification. No thoracic aortic aneurysm. Lymph nodes: Unremarkable. No enlarged lymph nodes. IMPRESSION: 1. Multiple right rib fractures with associated hemothorax. No pneumothorax identified. The
[2017-11-23] MEDS ORDERED: Melatonin 3 MG TAB PO PRN (20:36)
[2017-11-23] MEDS ORDERED: fentaNYL PATCH 25 MCG/HR TRANSDERM SCH (21:00)
--- NOTE | 2017-11-23 21:09 | HP ---
H&P (Free Text) History and Physical: PCP: Tru Ivy MD Oncology: Leigh Ann Vasquez MD Date/Time: 11/23/20172014 CC: fall w/ R rib FXs HPI: Mrs Bullard is a 62YO female HX cephalgia/migraine, idiopathic sensory neuropathy, venous sinus thrombosis off anticoagulation, anxiety/depression, HTN , osteoporosis, breast CA, & GERD who was walking her dog yesterday when she fell on concrete stairs and subsequently diagnosed at [facility] with 2 rib FXs based on CXR. Her pain is expectedly worse today, but she is uncomfortable going home. She did receive a dose of hydromorphone and her saO2 dipped into the high 80, likely from mild hypoventilation vs inaccurate reading. Her CT here shows 3 R rib FXs and a small hemothorax. She has been explained that we will avoid IV narcotics due to 1) needing to get her pain controlled on meds she can go home on & 2) the small concern for related hypoxia. PMedHx venous sinus thrombosis off anticoagulation breast CA followed by Leigh Ann Vasquez MD oncology HTN cephalgia/migraine idiopathic sensory neuropathy GERD anxiety/depression osteoporosis Ambulatory Orders Ascorbic Acid TAB* [Vitamin C TAB*] 500 mg PO DAILY 07/24/17 Calcium Carbonate [Calcium] 1,000 mg PO DAILY 07/24/17 Cholecalciferol TAB* [Vitamin D TAB*] 1,000 unit PO DAILY 07/24/17 Cyanocobalamin TAB* [Vitamin B12 TAB*] 500 mcg PO DAILY 07/24/17 Cyclosporine 0.05% OPHTH (NF) [Restasis 0.05% OPHTH] 1 drop BOTH EYES BID DULoxetine DR CAP* [Cymbalta CAP*] 90 mg PO DAILY 07/24/17 Gabapentin CAP(*) [Neurontin 300 CAP(*)] 300 mg PO BEDTIME 07/24/17 Omeprazole CAP* [Prilosec CAP* 20 MG] 20 mg PO DAILY 07/24/17 amLODIPine TAB* [Norvasc 5 mg TAB*] 5 mg PO DAILY 07/24/17 oxyCODONE TAB* [Roxycodone TAB 5 mg*] 5 - 10 mg PO Q4H PRN MDD 6 tablets Alendronate (NF) [Fosamax (NF)] 70 mg PO WEEKLY 07/25/17 Allergies iodine Allergy (Verified 11/23/17 17:03) Rash Sulfa (Sulfonamide Antibiotics) Allergy (Verified 11/23/17 17:03) Rash CT CONTRAST Allergy (Uncoded 11/23/17 17:03) Vomiting PSurgHx B knee arthroscopies for meniscal repairs R rotator cuff repair tonsillectomy SocHx: no tobacco, alcohol, or recreational drugs; lives alone; 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 Father passed at 65 2nd CAD/[place]. ROS: as above, otherwise reviewed and all were negative vitals: Vital Signs Temp 35.8 C 11/23/17 16:59 Pulse 75 11/23/17 20:00 Resp 16 11/23/17 18:00 BP 137/92 11/23/17 19:49 Pulse Ox 93 11/23/17 20:00 Intake & Output 11/22/17 11/23/17 11/23/17 23:59 11:59 23:59 Intake Total 1000 Balance 1000 Weight 68.039 kg Intake: IV Fluids 1000 Constitutional: NAD, normally developed, well-nourished white female HEENM: atraumatic; sclera/conjunctiva: anicteric/clear; hearing: clinically intact; oropharynx: clear, mucosa moist Neck: soft tissue: non-tender; thyroid: normal Pulmonary: clear to auscultation bilaterally, painful respiration, good aeration , no accessory muscle use CV: RR/RR, normal S1S2, no carotid bruit, no jugular venous distention, 2+ B DP/ PT, no edema Abdominal: soft, non-distended, non-tender, no rebound/guarding/rigidity, normoactive bowel sounds, no hepatosplenomegaly or masses, no costovertebral angle tenderness Musculoskeletal: general: grossly intact, non-tender Psychiatric orientation: AA&O to PPS affect: calm mood: cooperative eye contact: good content: reliable responses: timely insight: fair Testing: Lab Results 11/23/17 11/23/17 Range/Units 17:58 17:58 WBC 10.9 H (3.5-10.8) 10^3/ul RBC 4.56 (4.00-5.40) 10^6/ul Hgb 13.9 (12.0-16.0) g/dl Hct 42 (35-47) % MCV 91 (80-97) fL MCH 31 (27-31) pg MCHC 34 (31-36) g/dl RDW 15 (10.5-15) % Plt Count 270 (150-450) 10^3/ul MPV 7.8 (7.4-10.4) um3 Neut % (Auto) 61.3 (38-83) % Lymph % (Auto) 29.7 (25-47) % [place]atte % (Auto) 7.0 (0-7) % Eos % (Auto) 1.0 (0-6) % Baso % (Auto) 1.0 (0-2) % Absolute Neuts (auto) 6.7 (1.5-7.7) 10^3/ul Absolute Lymphs (auto) 3.2 (1.0-4.8) 10^3/ul Absolute Monos (auto) 0.8 (0-0.8) 10^3/ul Absolute Eos (auto) 0.1 (0-0.6) 10^3/ul Absolute Basos (auto) 0.1 (0-0.2) 10^3/ul Absolute Nucleated RBC 0 10^3/ul Nucleated RBC % 0 Sodium 139 (135-145) mmol/L Potassium 4.0 (3.5-5.0) mmol/L Chloride 102 (101-111) mmol/L Carbon Dioxide 31 (22-32) mmol/L Anion Gap 6 (2-11) mmol/L BUN 20 (6-24) mg/dL Creatinine 0.80 (0.51-0.95) mg/dL Est GFR ( Amer) 87.4 (>60) Est GFR (Non-Af Amer) 72.2 (>60) BUN/Creatinine Ratio 25.0 H (8-20) Glucose 81 (70-100) mg/dL Calcium 9.8 (8.6-10.3) mg/dL Total Bilirubin 0.40 (0.2-1.0) mg/dL AST 17 (13-39) U/L ALT 13 (7-52) U/L Alkaline Phosphatase 59 (34-104) U/L Total Protein 6.5 (6.4-8.9) g/dL Albumin 4.1 (3.2-5.2) g/dL Globulin 2.4 (2-4) g/dL Albumin/Globulin Ratio 1.7 (1-3) CT chest/abd/pel WO, personally reviewed: abd/pel IMPRESSION: 1. No acute intra-abdominal findings. chest IMPRESSION: 1. Multiple right rib fractures with associated hemothorax. No pneumothorax identified. Impression: 62F HX cephalgia/migraine, idiopathic sensory neuropathy, venous sinus thrombosis off anticoagulation, anxiety/depression, HTN, osteoporosis, breast CA, & GERD w/ multiple R rib FXs and small hemothorax from a fall yesterday reporting intractable pain DIAGNOSIS & PLAN Primary intractable pain 2nd multiple R rib FXs and small hemothorax from a fall yesterday : no IV narcotics in order to find acceptable home dosing regimen : continue home oxycodone 5mg Q4H PRN : acetaminophen & tramadol PRN : start fentanyl patch 25mcg : incentive spirometry : supportive care Secondary venous sinus thrombosis off anticoagulation : no acute issues breast CA followed by Leigh Ann Vasquez MD oncology : continue outpatient surveillance HTN : continue amlodipine cephalgia/migraine idiopathic sensory neuropathy : continue oxycodone 5mg Q4H PRN, gabapentin 300mg HX, & duloxetine 90mg daily GERD : continue omeprazole anxiety/depression : continue duloxetine Admission Rational: Observation for intractable pain DVTp: SCDs, no anticoagulation given subacute hemothorax Code Status: full HCP: daughterTosin
[2017-11-23] MEDS: traMADol TAB* 50 MG PO PRN (21:22)
[2017-11-23] MEDS: Docusate CAP* 100 MG PO SCH (21:22)
[2017-11-23] MEDS: Gabapentin CAP(*) 300 MG PO SCH (21:22)
[2017-11-23] MEDS: oxyCODONE TAB* 5 MG TAB PO PRN (22:19)
[2017-11-23] MEDS: CMCS:Cyclosporine 0.05% OPHTH (NF) 0.4 ML VIAL BOTH EYES SCH (22:21)
[2017-11-23] MEDS: NS 0.9% 1000 ML* 1,000 ML IV SCH (22:46)
[2017-11-24] MEDS: oxyCODONE TAB* 5 MG TAB PO PRN ×4 (05:02→23:46)
[2017-11-24] MEDS: fentaNYL Patch Check Q Shift 1 NOTE SCH ×2 (07:10→18:59)
[2017-11-24] MEDS: DULoxetine DR CAP* 30 MG CAP.DR PO SCH (07:37)
[2017-11-24] MEDS: Omeprazole CAP* 20 MG PO SCH (07:38)
[2017-11-24] MEDS: traMADol TAB* 50 MG PO PRN ×2 (07:38→20:00)
[2017-11-24] MEDS: Docusate CAP* 100 MG PO SCH ×2 (07:38→20:00)
[2017-11-24] MEDS: CMCS:Cyclosporine 0.05% OPHTH (NF) 0.4 ML VIAL BOTH EYES SCH ×2 (07:39→20:01)
[2017-11-24] MEDS: amLODIPine TAB* 5 MG PO SCH (07:39)
[2017-11-24] MEDS ORDERED: HYDROmorphone INJ* 1 MG/ML CARPUJECT SYRINGE IV SLOW PU PRN ×2 (08:01→09:02)
--- NOTE | 2017-11-24 08:07 | PN ---
Subjective Date of Service: 11/24/17 Interval History: Patient was seen and examined at bedside. Reports some iprovement of her pain, but still very uncomfortable to take a deep breath or getting OOB to use bathroom. Denies substernal chest pain, dyspnea or SOB. Occasional headaches due to pain, but no visual changes or hx head injury when she fell 2 days ago. Labs stable, CXR done this AM for follow up of small right hemothorax, report pending. She would like more pain meds. so she can get up and ambulate. Take Oxycodone every 4hrs at home due to chronic pains and neuropathy. Dose not think she will be able to go home later today. Family History: Unchanged from Admission Social History: Unchanged from Admission Past Medical History: Unchanged from Admission Objective Active Medications: Acetaminophen (Tylenol Tab*) 650 mg PO Q6H PRN PRN Reason: FEVER/PAIN Amlodipine Besylate (Norvasc Tab*) 5 mg PO DAILY [facility] Last Admin: 11/24/17 07:39 Dose: 5 mg Cyclosporine (Restasis 0.05% Oph) 1 drop BOTH EYES BID [facility]; Protocol Last Admin: 11/24/17 07:39 Dose: 1 drop Docusate Sodium (Colace Cap*) 200 mg PO BID [facility] Last Admin: 11/24/17 07:38 Dose: 200 mg Duloxetine HCl (Cymbalta Cap*) 90 mg PO DAILY [facility] Last Admin: 11/24/17 07:37 Dose: 90 mg Fentanyl (Duragesic Patch 25 Mcg/Hr*) 25 mcg TRANSDERM Q72H [facility] Last Admin: 11/23/17 22:16 Dose: 25 mcg Gabapentin (Neurontin Cap(*)) 300 mg PO BEDTIME [facility] Last Admin: 11/23/17 21:22 Dose: 300 mg Hydromorphone HCl (Dilaudid Inj*) 1 mg IV SLOW PU Q4H PRN PRN Reason: PAIN - SEVERE Sodium Chloride (Ns 0.9% 1000 Ml*) 1,000 mls @ 50 mls/hr IV PER RATE [facility] Last Admin: 11/23/17 22:46 Dose: 50 mls/hr Melatonin (Melatonin) 3 mg PO BEDTIME PRN; Protocol PRN Reason: Sleep Omeprazole (Prilosec Cap*) 20 mg PO DAILY@0730 [facility] Last Admin: 11/24/17 07:38 Dose: 20 mg Ondansetron HCl (Zofran Odt Tab*) 4 mg PO Q6H PRN PRN Reason: n/v Oxycodone HCl (Roxycodone Tab*) 10 mg PO Q4H PRN PRN Reason: PAIN Pharmacy Profile Note (Fentanyl Patch Check Q Shift) 1 note N/A 0700,1900 [facility] Last Admin: 11/24/17 07:10 Dose: 1 note Tramadol HCl (Ultram*) 50 mg PO Q6H PRN PRN Reason: PAIN Last Admin: 11/24/17 07:38 Dose: 50 mg Vital Signs - 8 hr 11/24/17 11/24/17 11/24/17 00:22 03:12 05:02 Temperature 97.0 F Pulse Rate 71 Respiratory 16 20 16 Rate Blood Pressure 115/74 (mmHg) O2 Sat by Pulse 96 Oximetry 11/24/17 11/24/17 11/24/17 07:07 07:38 07:47 Temperature 98.1 F Pulse Rate 65 Respiratory 16 20 20 Rate Blood Pressure 119/74 (mmHg) O2 Sat by Pulse 94 Oximetry Oxygen Devices in Use Now: None Appearance: Appears comfortable and in NAD Eyes: No Scleral Icterus, PERRLA Ears/Nose/Mouth/Throat: Clear Oropharnyx, Mucous Membranes Moist Neck: NL Appearance and Movements; NL JVP, Trachea Midline Respiratory: Symmetrical Chest Expansion and Respiratory Effort, Clear to Auscultation, - - Moderate right posterior ribcage tenderness. Pain worsened with arm abduction. No visible ecchymosis. Cardiovascular: NL Sounds; No Murmurs; No JVD, RRR Abdominal: NL Sounds; No Tenderness; No Distention Extremities: No Edema Neurological: Alert and Oriented x 3, NL Sensation Nutrition: Taking PO's Result Diagrams: 11/23/17 17:58 11/23/17 17:58 Additional Lab and Data: . Microbiology and Other Data: . Diagnostic Imaging: Chest/abdomen/pelvis CT findings: IMPRESSION: 1. Multiple right rib fractures with associated hemothorax. No pneumothorax identified. <Electronically signed by Narendra Amor MD in OV> 11/23/17 185 Patient Name: JERONIMO CASTELLANO Medical Record#: [id number] Ordering Physician: Guru Lyon MD Acct.#: [id number] : 1955 Age: 62 Sex: F Location: [address] [place] [address] - MEDICAL Exam Date: 11/24/17 0800 ADM Status: ADM Tressa Order Information: CHEST AP PORTABLE Accession Number: [id number] CPT: 06970 Indication: Follow-up right hemothorax. Single frontal view of the chest performed at 0730 hours was reviewed. Comparison is made with previous exam dated July 27, 2017. There is minimal fluid in the right costophrenic angle. Displaced fracture of the right eighth rib is noted posteriorly. Left lung field is clear. No pneumothorax is noted. . Heart is of normal size and configuration. IMPRESSION: RIGHT RIB FRACTURES. TRACE RIGHT PLEURAL EFFUSION IS NOTED. <Electronically signed by Cecilia Cordero MD in OV> 11/24/17 0805 EKG Data: . Assess/Plan/Problems-Billing Assessment: A 62 y/o female with multiple medical issues including chronic idiopathic neuropathy, HTN, hx breast CA and venous sinus thrombosis, who fortunately has been off anticoagulant for 2 years now, presented to ED after she sustained a fall the day prior, found to have multiple right ribs fractures with associated small hemothorax, admitted for pain management. - Patient Problems (1) Ribs, multiple fractures Current Visit: Yes Status: Acute Comment: - Patient initially comfortable, but shortly after she had lots of pain. - A dose of Dilaudid helped, will continue PO regimen, avoid IV narcotics as much as possible - PT ordered, would like her to ambulate more prior to discharge - F/U CXR with no pneumothorax or worsening hemothorax. - Labs reviewed, hemodynamically stable (2) Hypertension Current Visit: Yes Status: Acute Comment: - Continue Amlodipine (3) GERD (gastroesophageal reflux disease) Current Visit: Yes Status: Acute Comment: - Continue Omeprazole (4) Anxiety and depression Current Visit: Yes Status: Acute Comment: - Continue Doluxetine (5) Hx of breast cancer Current Visit: Yes Status: Acute Comment: - No active issues - Continue F/U with as outpatient (6) DVT prophylaxis Current Visit: Yes Status: Acute Comment: - Mechanical SCD's only given small hemothorax. (7) Full code status Current Visit: Yes Status: Acute Status and Disposition: Continue OBV status. Anticipate discharge to home tomorrow.
[2017-11-24] MEDS: Acetaminophen TAB* 325 MG PO PRN ×2 (08:46→15:49)
[2017-11-24] MEDS ORDERED: HYDROmorphone INJ* 0.5 MG/0.5 ML SYRINGE IV SLOW PU PRN (08:52)
[2017-11-24] MEDS: HYDROmorphone INJ1* 1 MG/ML SYRINGE IV SLOW PU PRN ×4 (09:15→20:33)
[2017-11-24] MEDS: Ondansetron ODT TAB* 4 MG PO PRN (16:46)
[2017-11-24] MEDS: NS 0.9% 1000 ML* 1,000 ML IV SCH (19:15)
[2017-11-24] MEDS: Magnesium Hydroxide LIQ* 30 ML UDC PO SCH ×2 (20:01→23:47)
[2017-11-24] MEDS: Gabapentin CAP(*) 300 MG PO SCH (20:32)
[2017-11-25] MEDS: HYDROmorphone INJ1* 1 MG/ML SYRINGE IV SLOW PU PRN (00:44)
[2017-11-25] MEDS: Acetaminophen TAB* 325 MG PO PRN (03:55)
[2017-11-25] MEDS: oxyCODONE TAB* 5 MG TAB PO PRN (06:05)
[2017-11-25] MEDS: Ondansetron ODT TAB* 4 MG PO PRN (06:28)
[2017-11-25] MEDS: fentaNYL Patch Check Q Shift 1 NOTE SCH ×3 (06:29→19:14)
--- NOTE | 2017-11-25 07:45 | RAD ---
Indication: Follow-up right pneumothorax. Single frontal view of the chest performed at 0702 hours was reviewed. Comparison is made with previous exam dated November 24, 2017. Suggestion of right rib fractures. Right basilar atelectasis is noted. No significant pleural effusion is noted. Left lung field is clear. IMPRESSION: Trace right pleural effusion. Right basilar atelectasis. Rib fractures in the right ribs.
[2017-11-25] MEDS: Docusate CAP* 100 MG PO SCH ×2 (08:15→21:11)
[2017-11-25] MEDS: DULoxetine DR CAP* 30 MG CAP.DR PO SCH (08:15)
[2017-11-25] MEDS: CMCS:Cyclosporine 0.05% OPHTH (NF) 0.4 ML VIAL BOTH EYES SCH ×2 (08:15→21:12)
[2017-11-25] MEDS: traMADol TAB* 50 MG PO PRN (08:16)
[2017-11-25] MEDS: amLODIPine TAB* 5 MG PO SCH (08:16)
[2017-11-25] MEDS: Omeprazole CAP* 20 MG PO SCH (08:16)
[2017-11-25 09:01] LABS: ABS Basophils 0 10^3/ul (0-0.2); ABS Eosinophils 0 10^3/ul (0-0.6); ABS Lymphocytes 1.1 10^3/ul (1.0-4.8); ABS Monocytes 0.5 10^3/ul (0-0.8); ABS Neutrophils 11.9 10^3/ul (1.5-7.7); ABS Nucleated RBC 0 10^3/ul; Eosinophil % 0.3 % (0-6); Hematocrit 38 % (35-47); Hemoglobin 12.5 g/dl (12.0-16.0); Mean Corpuscular HGB Conc 33 g/dl (31-36); Mean Corpuscular Hemoglobin 30 pg (27-31); Mean Corpuscular Volume 91 fL (80-97); Mean Platelet Volume 7.8 um3 (7.4-10.4); Nucleated Red Blood Cells % 0; Platelet Count 227 10^3/ul (150-450); Red Blood Count 4.18 10^6/ul (4.00-5.40); Red Cell Distribution Width 14 % (10.5-15); White Blood Count 13.6 10^3/ul (3.5-10.8)
[2017-11-25] MEDS: Morphine VIAL* 4 MG/ML VIAL (1 ml vial) IV PRN ×5 (10:22→15:24)
[2017-11-25] MEDS ORDERED: Magnesium Hydroxide LIQ* 30 ML UDC PO PRN (15:24)
[2017-11-25] MEDS ORDERED: Bisacodyl SUPP* 10 MG SUPP PR PRN (15:25)
--- NOTE | 2017-11-25 16:37 | PN ---
Subjective Date of Service: 11/25/17 Interval History: Patient seen and examined at bedside. Reports feeling a little better, still painful to take a deep breath. Ambulating a little better, pain more tolerable. Still taking Dilaudid around the clock, switched this AM to Morphine and planning to titrate her dose prior to discharge. Denies substernal chest pain or SOB. Family History: Unchanged from Admission Social History: Unchanged from Admission Past Medical History: Unchanged from Admission Objective Active Medications: Acetaminophen (Tylenol Tab*) 650 mg PO Q6H PRN PRN Reason: FEVER/PAIN Last Admin: 11/25/17 03:55 Dose: 650 mg Amlodipine Besylate (Norvasc Tab*) 5 mg PO DAILY [facility] Last Admin: 11/25/17 08:16 Dose: 5 mg Bisacodyl (Dulcolax Supp*) 10 mg [place] DAILY PRN PRN Reason: CONSTIPATION Cyclosporine (Restasis 0.05% Oph) 1 drop BOTH EYES BID [facility]; Protocol Last Admin: 11/25/17 08:15 Dose: 1 drop Docusate Sodium (Colace Cap*) 200 mg PO BID [facility] Last Admin: 11/25/17 08:15 Dose: 200 mg Duloxetine HCl (Cymbalta Cap*) 90 mg PO DAILY [facility] Last Admin: 11/25/17 08:15 Dose: 90 mg Fentanyl (Duragesic Patch 25 Mcg/Hr*) 25 mcg TRANSDERM Q72H [facility] Last Admin: 11/23/17 22:16 Dose: 25 mcg Gabapentin (Neurontin Cap(*)) 300 mg PO BEDTIME [facility] Last Admin: 11/24/17 20:32 Dose: 300 mg Magnesium Hydroxide (Milk Of Magnesia Liq*) 30 ml PO Q6H PRN PRN Reason: CONSTIPATION Melatonin (Melatonin) 3 mg PO BEDTIME PRN; Protocol PRN Reason: Sleep Morphine Sulfate (Morphine Vial*) 4 mg IV Q1H PRN PRN Reason: PAIN - SEVERE Last Admin: 11/25/17 15:24 Dose: 4 mg Omeprazole (Prilosec Cap*) 20 mg PO DAILY@0730 [facility] Last Admin: 11/25/17 08:16 Dose: 20 mg Ondansetron HCl (Zofran Odt Tab*) 4 mg PO Q6H PRN PRN Reason: n/v Last Admin: 09/05/18 06:28 Dose: 4 mg Oxycodone HCl (Roxycodone Tab*) 10 mg PO Q4H PRN PRN Reason: PAIN Last Admin: 11/25/17 06:05 Dose: 10 mg Pharmacy Profile Note (Fentanyl Patch Check Q Shift) 1 note N/A 0700,1900 [facility] Last Admin: 11/25/17 15:24 Dose: 1 note Tramadol HCl (Ultram*) 50 mg PO Q6H PRN PRN Reason: PAIN Last Admin: 11/25/17 08:16 Dose: 50 mg Vital Signs - 8 hr 11/25/17 11/25/17 11/25/17 08:36 10:22 11:35 Temperature Pulse Rate Respiratory 18 20 12 Rate Blood Pressure (mmHg) O2 Sat by Pulse Oximetry 11/25/17 11/25/17 11/25/17 12:15 12:16 12:53 Temperature Pulse Rate Respiratory 12 12 16 Rate Blood Pressure (mmHg) O2 Sat by Pulse Oximetry 11/25/17 11/25/17 11/25/17 13:20 13:57 13:58 Temperature 98.2 F Pulse Rate 72 Respiratory 12 12 12 Rate Blood Pressure 120/82 (mmHg) O2 Sat by Pulse 97 Oximetry 11/25/17 11/25/17 14:57 15:24 Temperature Pulse Rate Respiratory 18 18 Rate Blood Pressure (mmHg) O2 Sat by Pulse Oximetry Oxygen Devices in Use Now: None Appearance: Appears comfortable and in NAD Eyes: No Scleral Icterus, PERRLA Ears/Nose/Mouth/Throat: Clear Oropharnyx, Mucous Membranes Moist Neck: NL Appearance and Movements; NL JVP, Trachea Midline Respiratory: Symmetrical Chest Expansion and Respiratory Effort, Clear to Auscultation Cardiovascular: NL Sounds; No Murmurs; No JVD, RRR Abdominal: NL Sounds; No Tenderness; No Distention Extremities: No Edema Neurological: Alert and Oriented x 3 Result Diagrams: 11/25/17 08:32 11/23/17 17:58 Additional Lab and Data: . Microbiology and Other Data: . Diagnostic Imaging: Patient Name: JERONIMO CASTELLANO Medical Record#: [id number] Ordering Physician: Tia JOHNSON Acct.#: [id number] : 1955 Age: 62 Sex: F Location: [address] [place] [address] - MEDICAL Exam Date: 11/25/17 0700 ADM Status: ADM Tressa Order Information: CHEST AP PORTABLE Accession Number: [id number] CPT: 30799 Indication: Follow-up right hemothorax. Single frontal view of the chest performed at 0702 hours was reviewed. Comparison is made with previous exam dated November 24, 2017. Suggestion of right rib fractures. Right basilar atelectasis is noted. No significant pleural effusion is noted. Left lung field is clear. IMPRESSION: Trace right pleural effusion. Right basilar atelectasis. Rib fractures in the right ribs. <Electronically signed by Cecilia Cordero MD in OV> 11/25/17 0742 EKG Data: . Assess/Plan/Problems-Billing Assessment: A 62 y/o female with multiple medical issues including chronic idiopathic neuropathy, HTN, hx breast CA and venous sinus thrombosis, who fortunately has been off anticoagulant for 2 years now, presented to ED after she sustained a fall the day prior, found to have multiple right ribs fractures with associated small hemothorax, admitted for pain management. - Patient Problems (1) Ribs, multiple fractures Current Visit: Yes Status: Acute Comment: - Pain improving, titrating IV narcotics. - Continue PO narcotics regimen in anticipation for d/c to home hopefully tomorrow - PT ordered, would like her to ambulate more prior to discharge - F/U CXR with no pneumothorax or worsening hemothorax. - Labs reviewed, hemodynamically stable (2) Hypertension Current Visit: Yes Status: Acute Comment: - Continue Amlodipine (3) GERD (gastroesophageal reflux disease) Current Visit: Yes Status: Acute Comment: - Continue Omeprazole (4) Anxiety and depression Current Visit: Yes Status: Acute Comment: - Continue Doluxetine (5) Hx of breast cancer Current Visit: Yes Status: Acute Comment: - No active issues - Continue F/U with as outpatient (6) DVT prophylaxis Current Visit: Yes Status: Acute Comment: - Mechanical SCD's only given small hemothorax. (7) Full code status Current Visit: Yes Status: Acute Status and Disposition: Continue OBV status. Anticipate discharge to home tomorrow.
[2017-11-25] MEDS: Morphine INJ* 2 MG/ML 1 ML SYRINGE (TWO MG - NEW SYRINGE VERSION) IV PRN ×4 (16:58→23:13)
[2017-11-25] MEDS: Gabapentin CAP(*) 300 MG PO SCH (21:11)
[2017-11-26] MEDS: oxyCODONE TAB* 5 MG TAB PO PRN (02:00)
[2017-11-26] MEDS: Morphine INJ* 2 MG/ML 1 ML SYRINGE (TWO MG - NEW SYRINGE VERSION) IV PRN ×4 (05:03→11:33)
[2017-11-26] MEDS: fentaNYL Patch Check Q Shift 1 NOTE SCH (07:01)
[2017-11-26] MEDS: Omeprazole CAP* 20 MG PO SCH (07:40)
[2017-11-26] MEDS: Docusate CAP* 100 MG PO SCH (09:05)
[2017-11-26] MEDS: DULoxetine DR CAP* 30 MG CAP.DR PO SCH (09:06)
[2017-11-26] MEDS: amLODIPine TAB* 5 MG PO SCH (09:06)
[2017-11-26] MEDS: CMCS:Cyclosporine 0.05% OPHTH (NF) 0.4 ML VIAL BOTH EYES SCH (09:07)
[2017-11-26] MEDS ORDERED: Ibuprofen TAB* 600 MG PO ONE (09:28)
[2017-11-26] MEDS ORDERED: Cyclobenzaprine TAB* 10 MG PO ONE (09:28)
[2017-11-26 11:28] VITALS: BP 103/72
--- NOTE | 2017-11-27 01:37 | DS ---
DISCHARGE SUMMARY: DATE OF ADMISSION: 11/23/17 DATE OF DISCHARGE: 11/26/17 PATIENT OF ATTENDING HOSPITALIST: Dr. Guru Lyon. ATTENDING HOSPITALIST WHILE PATIENT HERE: Dr. Sabine Taylor.* (DICTATED BY ALEX MEJIA) PRIMARY CARE PROVIDER: Dr. Ivy. ADMISSION DIAGNOSES: 1. Status post fall. 2. Multiple right rib fractures. 3. History of venous sinus thrombosis. 4. History of breast cancer. 5. Hypertension. 6. Migraine. 7. Chronic pain. 8. Idiopathic sensory neuropathy. 9. Gastroesophageal reflux disease. 10. Anxiety and depression. 11. Osteoporosis. DISCHARGE DIAGNOSES: 1. Status post fall. 2. Multiple right rib fractures. 3. History of venous sinus thrombosis. 4. History of breast cancer. 5. Hypertension. 6. Migraine. 7. Chronic pain. 8. Idiopathic sensory neuropathy. 9. Gastroesophageal reflux disease. 10. Anxiety and depression. 11. Osteoporosis. ADMITTING HOSPITALIST: Dr. Lyon. CONSULTATIONS: None. HISTORY OF PRESENT ILLNESS: Mr. Bullard is a 62-year-old female with a history of idiopathic neuropathy, migraine headaches, venous sinus thrombosis for which she has been off anticoagulation for a couple of years as well as history of hypertension, breast cancer and GERD. The patient notes that she was walking her dog the day before admission when she fell on concrete stair, subsequently diagnosed at [facility] with right rib fractures based on chest x- ray. She was sent home and her pain is expectedly worsened today, but she has been uncomfortable going home and did receive a dose of Dilaudid after which her oxygen saturation dipped in the high 80s. Her CT scan showed 3 rib fractures and a small hemothorax. She has been having a lot of pain for which she was admitted for observation. HOSPITAL COURSE: The patient was admitted under hospitalist services. She had a significant pain especially with deep inspiration for which IV morphine was given periodically to control her pain on the first day of admission. Physical Therapy consultation was obtained and the patient was able gradually to get out of bed and ambulate. Her chest x-rays and labs were repeated on the following day revealing no evidence of pneumothorax or worsening small hemothorax on the right side. Her labs revealed a stable hemoglobin and hematocrit of 12.5 and 38 revealing no evidence of bleeding. The patient was slowly to get up and ambulate. She continued to have pain despite the use of fentanyl patch, oral oxycodone as well as occasional IV morphine as needed. We talked to her about potential discharge and try to figure out a good p.o. regimen for her medications. It is to be noted that the patient was on a pain clinic contract regarding her chronic pains. On discharge morning, she was stable and her vital revealed a blood pressure of 103/72, temperature of 98.2, pulse of 70, respirations of 14 with O2 sat of 92% on room air. She had no new complaints. Her pain was somehow tolerated for discharge. She was discharged home on oxycodone tablets to continue her pain regimen in addition to muscle relaxant and anti-inflammatory. She will follow up with Dr. Ivy and pain clinic in [place] later this month. DISCHARGE MEDICATIONS: Include: 1. Fosamax 70 mg p.o. q. week. 2. Norvasc 5 mg p.o. daily. 3. Vitamin C tablets 500 mg p.o. daily. 4. Calcium 1000 mg p.o. daily. 5. Vitamin D 1000 units p.o. daily. 6. Vitamin B12 500 mcg p.o. daily. 7. Cyclosporin ophthalmic solution 0.05% one drop both eyes once daily. 8. Cymbalta 90 mg p.o. daily. 9. Neurontin 300 mg p.o. q.h.s. 10. Omeprazole 20 mg p.o. daily. 11. Roxicodone 10 mg p.o. q.6 hours as needed for pain. 12. Flexeril 10 mg p.o. t.i.d. as needed for muscle spasms. 13. Ibuprofen 600 mg q.8 hours p.r.n. for pain. 14. Colace 200 mg p.o. b.i.d. ALEX MEJIA [id number]/[facility] #: [id number] MTDD
== END 2017-11-26 11:55 | disposition home or self-care (01) ==
LOC: ED 16:33 → MED 20:33
PROVIDERS: ADMIT Hospitalist; ATTEND Internal Medicine
DX: S22.41XA Multiple fractures of ribs, right side, initial encounter for closed fracture (principal); W10.9XXA Fall (on) (from) unspecified stairs and steps, initial encounter; Y93.K1 Activity, walking an animal; Y92.9 Unspecified place or not applicable; I10 Essential (primary) hypertension; G43.909 Migraine, unspecified, not intractable, without status migrainosus; G89.29 Other chronic pain; K21.9 Gastro-esophageal reflux disease without esophagitis; F41.9 Anxiety disorder, unspecified; F32.9 Major depressive disorder, single episode, unspecified; M81.0 Age-related osteoporosis without current pathological fracture; Z85.3 Personal history of malignant neoplasm of breast; G08 Intracranial and intraspinal phlebitis and thrombophlebitis; Z79.899 Other long term (current) drug therapy; Z88.2 Allergy status to sulfonamides; Z91.041 Radiographic dye allergy status
CPT/HCPCS: 36415; 71045; 71250; 74176; 80053; 85025; 96361; 96374; 96375; 96376; 99284; A9270-GY; G0378; J1170; J2270; J2405

== ENCOUNTER 2018-02-07 15:12 | Emergency (ER) | payer BC ==
[2018-02-07 15:21] VITALS: BP 145/98
--- NOTE | 2018-02-07 15:38 | UC ---
Respiratory Complaint HPI - History of Current Complaint Chief Complaint: UCGeneralIllness Stated Complaint: SORE THROAT,CONGESTED Time Seen by Provider: 02/07/18 15:21 Pain Intensity: 5 - Allergies/Home Medications Allergies/Adverse Reactions: Allergies Allergy/AdvReac Type Severity Reaction Status Date / Time iodine Allergy Rash Verified 02/07/18 15:21 Sulfa (Sulfonamide Allergy Rash Verified 02/07/18 15:21 Antibiotics) CT CONTRAST Allergy Vomiting Uncoded 02/07/18 15:21 Home Medications: Home Medications Buprenorp/Nalox 4-1 MG FILM [Suboxone] 4 - 6 mg SL DAILY 02/07/18 [History Confirmed 02/07/18] PMH/Surg Hx/FS Hx/Imm Hx Other History Of: Anticoagulant Therapy - was on warfarin 07/2016-11/2016, DC'd by Dr. Ramirez - Surgical History Surgical History: Yes Surgery Procedure, Year, and Place: BILATERAL KNEE SURGERIES; meniscus tears. LT BREAST LUMPECTOMY. BROKEN FEMUR CHILD METAL TAKEN OUT. Rt SHOULDER - RCT - Family History Known Family History: Positive: Unknown, Other - brain aneurysm in grandmother - Social History Alcohol Use: None Substance Use Type: None Smoking Status (MU): Former Smoker - Immunization History Most Recent Influenza Vaccination: 2017 Most Recent Pneumonia Vaccination: never Physical Exam Vital Signs: Initial Vital Signs Temp 98 F 02/07/18 15:16 Pulse 66 02/07/18 15:16 Resp 16 02/07/18 15:16 BP 145/98 02/07/18 15:16 Pulse Ox 99 02/07/18 15:16 Diagnostic Evaluation - Laboratory O2 Sat by Pulse Oximetry: 99 Discharge - Discharge Plan Referrals: Yung Ivy MD [Primary Care Provider] -
--- NOTE | 2018-02-07 15:45 | UC ---
Respiratory Complaint HPI - HPI Summary HPI Summary: Patient presents to urgent care with one week history of sinus congestion, ear fullness, and cough. Patient states she's got some burning in her lungs. Patient does have some wheezing. Patient states cough is nonproductive. Patient denies shortness of breath. No abdominal pain. No nausea vomiting. Patient states she does have body aches and fatigue. no fever, chills, rash Patient has not taken any medications to treat her symptoms. Patient does not smoke cigarettes. 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 Patient's medications reviewed this visit. - History of Current Complaint Chief Complaint: UCGeneralIllness Stated Complaint: SORE THROAT,CONGESTED Time Seen by Provider: 02/07/18 15:21 Hx Obtained From: Patient ?: Yes Onset/Duration: Gradual Onset Severity Currently: Moderate Pain Intensity: 5 Pain Scale Used: 0-10 Numeric - Allergies/Home Medications Allergies/Adverse Reactions: Allergies Allergy/AdvReac Type Severity Reaction Status Date / Time iodine Allergy Rash Verified 02/07/18 15:21 Sulfa (Sulfonamide Allergy Rash Verified 02/07/18 15:21 Antibiotics) CT CONTRAST Allergy Vomiting Uncoded 02/07/18 15:21 Home Medications: Home Medications Buprenorp/Nalox 4-1 MG FILM [Suboxone] 4 - 6 mg SL DAILY 02/07/18 [History Confirmed 02/07/18] PMH/Surg Hx/FS Hx/Imm Hx Previously Healthy: Yes Other History Of: Anticoagulant Therapy - was on warfarin 07/2016-11/2016, DC'd by Dr. Ramirez - Surgical History Surgical History: Yes Surgery Procedure, Year, and Place: BILATERAL KNEE SURGERIES; meniscus tears. LT BREAST LUMPECTOMY. BROKEN FEMUR CHILD METAL TAKEN OUT. Rt SHOULDER - RCT - Family History Known Family History: Positive: Other - brain aneurysm in grandmother , Non- Contributory - Social History Occupation: Employed Part-time Alcohol Use: None Substance Use Type: None Smoking Status (MU): Former Smoker - Immunization History Most Recent Influenza Vaccination: 2017 Most Recent Pneumonia Vaccination: never Review of Systems All Other Systems Reviewed And Are Negative: Yes Constitutional: Positive: Fatigue Skin: Positive: Negative ENT: Positive: Sinus Congestion Respiratory: Positive: Cough, Other - wheeze Physical Exam - Summary Physical Exam Summary: Vital Signs Reviewed: Yes A+Ox3, no distress Eyes: Conjunctiva Clear, FELIX. EOM intact and full ENT: Hearing grossly normal Right TM + cerumen, left TM wnl; turbinates inflammed, + mild PND mmoist, uvula midline, no exudate, no erythema Neck: Positive: Supple Respiratory: Positive: No respiratory distress, No accessory muscle use +BS throughout end ex wheeze right no rhonci Cardiovascular: RRR nl s1, s2 no m/r CBT <2 sec abd soft + BS nt/nd no guarding, no distension Musculoskeletal Exam: HODGES x 4 without difficulty Strength Intact, ROM Intact Neurological: Positive: Alert, + sensation throughout Psychological: Positive: Normal Response To Family Skin: Positive: no rash, no ecchymosis Triage Information Reviewed: Yes Vital Signs: Initial Vital Signs Temp 98 F 02/07/18 15:16 Pulse 66 02/07/18 15:16 Resp 16 02/07/18 15:16 BP 145/98 02/07/18 15:16 Pulse Ox 99 02/07/18 15:16 UC Diagnostic Evaluation - Laboratory O2 Sat by Pulse Oximetry: 99 - Radiology Radiology Interpretation Completed By: Radiologist - Patient Name: JERONIMO CASTELLANO Medical Record#: [id number] Re-Evaluation - Re-Evaluation Second Eval Re-Evaluation Time: 16:32 Change: Improved Comment: Patient's wheezing resolved. Review chest x-ray patient. Patient states her chest tightness feels better. We'll prescribe albuterol every 4 hours. Will also prescribe patient Z-Jose she's been sick for 7-8 days. Patient requests I exam her foot. Patient with some mild edema dorsum of her foot. No erythema, no warmth, no pain. Patient with 2+ pulses warm toes. Cap refill less than 2 seconds. Patient with full range of motion of her knee and her ankle. No open wounds. No erythema. No concern for cellulitis. Patient was seen by her PCP for this 3 days ago. Recommend patient schedule follow-up for the Thursday after for recheck of her respiratory system as well as her foot. No Pain. No concern for DVT at today's visit. Patient advised to elevate. Follow up with PCP or emergency department if symptoms change or worsen. Patient comfortable in agreement with plan. We will evaluate year following medication. Anticipate discharge. Pt states she develops yeast infections following abx - will Rx diflucan Third Eval Re-Evaluation Time: 16:35 Comment: right TM - clear - no fluid, erythema. pt with small abraison canal Respiratory Course/Dx - Course Course Of Treatment: Pt presents with 7 days fatigue, pnd, congestion and cough. Pt with end ex wheeze. No OTC meds take. on exam, VSS. Pt with coarse cough and end ex wheeze right. no rhonchi. Pt with cerumen impaction right ear - will irrigate. reassess. will irrigate. cxr. neg. reassess - Differential Dx/Diagnosis Provider Diagnoses: acute bronchitis. cerumen impaction Discharge - Sign-Out/Discharge Documenting (check all that apply): Patient Departure All imaging exams completed and their final reports reviewed: No Studies - Discharge Plan Condition: Stable Disposition: HOME Patient Education Materials: Cerumen Impaction (ED), Acute Bronchitis (ED) Print Language: HUNGARIAN Referrals: Yung Ivy MD [Primary Care Provider] - Additional Instructions: -Take antibiotics exactly as prescribed until gone -Use your albuterol puffer - 2 puffs ever 4 hours for the next 2 days - then as needed -Stay well hydrated - avoid excess caffeine and all alcohol - eat regular, healthy meals - - humidify the air in the room where you sleep - boil water, run a hot steam shower, vaporizer, cups of water by heat register - okay to take over the counter decongestant and cough medication -- These infections are spread by secretions - do NOT share eating or drinking utensils - clean items you share with other people such as cell phones, computer mouse, TV remote, computer tablets,etc.. Once you have been antibiotics for 2 days, change your toothbrush and your pillowcase. - you have been prescribed - okay to take if you develop a yeast infection related to antibiotics -Contact your doctor to arrange a follow-up appointment this week. Call your doctor, return here or go to the emergency department with any questions or concerns - Billing Disposition and Condition Condition: STABLE Disposition: Home Addendum entered and electronically signed by Myah Aaron MD 02/07/18 17:02 : Addendum Addendum: pt with mildly elevated BP -pt with diagnosis with htn
[2018-02-07] MEDS ORDERED: Albuterol 2.5 MG/3 ML NEB.SOL* (0.083%) INH ONE (15:46)
== END 2018-02-07 16:53 | disposition home or self-care (01) ==
LOC: UCEAST 15:12
DX: J20.9 Acute bronchitis, unspecified (principal); H61.21 Impacted cerumen, right ear; R09.81 Nasal congestion; Z88.8 Allergy status to other drugs, medicaments and biological substances; Z88.2 Allergy status to sulfonamides; Z91.041 Radiographic dye allergy status; Z79.01 Long term (current) use of anticoagulants; Z87.891 Personal history of nicotine dependence
CPT/HCPCS: 71046; 99212; G0463

== ENCOUNTER → 2019-03-24 05:52 | Day surgery (SDC) | payer MEDICARE, OTHER ==
[~2019-03-24 05:52] MED LIST: Buffered Lidocaine 1% SYRIN* 1 ML/SYRINGE INTRADERM ONE; Bupivacaine 0.25% SDV PF* 10 ML VIAL INJ ONE; Dexamethasone IV* 4 MG/ML 1 ML (4 MG) IV SLOW PU ONE; Dexamethasone IV* 4 MG/ML 1 ML (4 MG) ONE; DiMENhydriNATE IV* 50 MG/ML VIAL IV PUSH PRN; EPHEDrine (Pressors)* 50 MG/ML VIAL ONE; Famotidine IV* 10 MG/ML 2 ML (20 mg) IV ONE; Famotidine IV* 10 MG/ML 2 ML (20 mg) ONE; HYDROcodone/ACETAMIN 5-325 MG* 1 TAB PO PRN; Lactated Ringers 1000 ML Bag* 1,000 ML IV SCH; Lidocaine 1% INJ* 10 MG/ML 30 ML SDV ONE; Lidocaine 2% PF * 5 ML VIAL ONE; Midazolam* 1 MG/ML 5 ML VIAL (5 MG) ONE; Naloxone* 0.4 MG/ML 1 ML VIAL IV PRN; Ondansetron INJ* 2 MG/ML VIAL ONE; Phenylephrine 40 MCG/ML SYRINGE ONE; Propofol* 10 MG/ML 20 ML BTL ONE; Succinylcholine* 20 MG/ML 10 ML VIAL ONE; fentaNYL* 50 MCG/ML 2 ML VIAL (100 MCG VIAL) ONE; oxyCODONE/Acetamin 5/325 MG* TAB ONE
--- NOTE | 2019-03-24 09:27 | BRIEFOPN ---
Brief Operative/Procedure Note - Operation Details Pre-Op Diagnosis: primary hyperparathyroidism Post-Op Diagnosis: same Procedures: parathyroidectomy Surgeon(s)/Proceduralists: Alf. Assist: ALEX Davalos Anesthesia: GET. Fluids: 1500 ml RL Estimated Blood Loss: none Findings: as above Specimen(s)/Culture(s) Description: Left upper and left lower parathyroid glands Complications: none
[2019-03-24] MEDS: oxyCODONE/Acetamin 5/325 MG* TAB PO PRN ×2 (10:25→10:27)
[2019-03-24] MEDS: fentaNYL* 50 MCG/ML 2 ML VIAL (100 MCG VIAL) IV PRN ×2 (11:14→11:46)
[2019-03-24 14:43] VITALS: BP 115/76
--- NOTE | 2019-03-24 17:31 | OP ---
CC: Dr. Yung Ivy; Dr. Humberto Munson * DATE OF OPERATION: 03/24/19 - [facility] DATE OF : 51 SERVICE: General Surgery. SURGEON: Gladys Milner MD SENIOR ACCOUNT MANAGER: ALEX Charlton ANESTHESIOLOGIST: Romi Woo MD PRE-OP DIAGNOSIS: Primary hyperparathyroidism. POST-OP DIAGNOSIS: Primary hyperparathyroidism. OPERATIVE PROCEDURE: Left upper and left lower parathyroidectomy. ESTIMATED BLOOD LOSS: Minimal, less than 10 cc from the operation. SPECIMENS: Left upper and left lower parathyroid. INDICATIONS FOR SURGERY: Ms. Bullard is a very pleasant 63-year-old female with a history of primary hyperparathyroidism who met criteria for undergoing parathyroidectomy given her history of osteoporosis. She understood that the risks included, but not were limited to, bleeding, infection, injury to nearby structures. She understood these things and she wished to proceed. DESCRIPTION OF PROCEDURE: The patient was brought back to the operating room and placed on the operating table in a supine position. Sequential compression devices were placed in the bilateral lower extremities for DVT prophylaxis. No antibiotics were administered. General endotracheal anesthesia was induced and the electrodes for the nerve monitor were attached. A time-out was performed prior to administering local anesthesia to the neck, which consisted of 0.25% Marcaine and 1% lidocaine mixed. After this was done, her neck was prepped and draped in normal sterile fashion and then a second time-out was performed verifying the patient's name, date of , and the procedure to be performed. An approximately 3.5 cm incision was made in a natural crease line 2 fingerbreadths above sternal notch. The skin was divided down to the subcutaneous tissue. The platysma was divided and the inferior and superior subplatysmal flaps were then developed. The median raphe between the strap muscles was identified and divided, and the strap muscles were retracted laterally off the isthmus of the thyroid. She had preoperative localization studies, which consisted of an ultrasound and sestamibi scan. The Sestamibi did not identify any adenomas, however, it did note that there was a left upper parathyroid that looked enlarged on the CT portion of the scan. On imaging with ultrasound, it looked like she had a left-sided enlarged parathyroid gland as well. Therefore, attention was turned towards the left thyroid lobe. The strap muscles off of the left thyroid lobe were retracted laterally and the left thyroid lobe was rotated medially and anteriorly. Attention was turned towards the lower pole. There was a slightly enlarged left lower parathyroid gland with a cystic component to it that was consistent with ultrasound findings. It was dissected out in its entirety and excised. However, once the surrounding fatty tissue was dissected off of the parathyroid gland, it did not appear to be particularly enlarged. Therefore, attention was turned towards performing a 4-gland exploration. The left upper parathyroid gland was identified in its normal anatomic position, approximately 1 cm superior to the inferior lobe of the left thyroid gland. It was clearly adenomatous and enlarged, approximately 2 cm. It was isolated on a pedicle and then after its identification, attention was turned towards the right thyroid lobe, which in a similar fashion, the strap muscles were retracted laterally off of the lobe and the lobe was then able to be rotated medially and anteriorly out of the neck. The right lower gland was identified in the similar position as the left side in the lower pole in a surrounding area of fatty tissue. It appeared to be normal and then attention was turned towards identifying the right upper parathyroid gland, which also appeared to be normal and was located approximately 1 to 2 cm superior to the lower gland and more posterior. Once these were identified clearly, the left upper gland was noted to be the clear adenoma. The left upper gland was then excised, and once it was excised, serial PTH samples were obtained. The baseline had been obtained in the preop holding area and then the T0 was taken when the pedicle was ligated and then T5 was taken 5 minutes later and T10 was taken 5 minutes after this. The labs then returned as baseline at 71.1, the T0 was 439.3, T5 was 156.4, and T10 was 104.3. Given that the [place] criteria was met, attention was turned towards closure. Hemostasis was obtained in the neck. Tisseel was placed in the right lateral neck and then the strap muscles were reapproximated using 4-0 Vicryl sutures. The platysma was reapproximated using interrupted 4-0 Vicryl sutures and the skin was closed using a running 5-0 Prolene suture. Sterile dressing was then placed. The patient's anesthesia was reversed and she was taken to the PACU in the stable condition. At the end of the case, all counts were correct and I was present through entirety of the case. [id number]/[facility] #: [id number] [facility]
== END | disposition home or self-care (01) ==
LOC: OR 05:52
PROVIDERS: ATTEND Surgery
DX: E21.0 Primary hyperparathyroidism (principal); Z87.891 Personal history of nicotine dependence; Z85.3 Personal history of malignant neoplasm of breast; I10 Essential (primary) hypertension; G47.33 Obstructive sleep apnea (adult) (pediatric); K21.9 Gastro-esophageal reflux disease without esophagitis; M81.0 Age-related osteoporosis without current pathological fracture; G62.9 Polyneuropathy, unspecified; Z88.1 Allergy status to other antibiotic agents
CPT/HCPCS: 36415; 83970; 88305; A9270-GY; C1776; J0330; J1100; J2250; J2405; J2704; J3010; J3490

== ENCOUNTER 2020-09-11 08:33 | Observation (INO) ==
[~2020-09-11 08:33] MED LIST changes: +Buffered Lidocaine 1% SYRIN 1 ml INTRADERM ONE; -Buffered Lidocaine 1% SYRIN* 1 ML/SYRINGE INTRADERM ONE; +Bupivacaine 0.25% SDV 30 ML ONE; -Bupivacaine 0.25% SDV PF* 10 ML VIAL INJ ONE; +Bupivacaine 0.5% SDV PF 30ML VIAL ONE; -Dexamethasone IV* 4 MG/ML 1 ML (4 MG) IV SLOW PU ONE; -Dexamethasone IV* 4 MG/ML 1 ML (4 MG) ONE; -DiMENhydriNATE IV* 50 MG/ML VIAL IV PUSH PRN; -EPHEDrine (Pressors)* 50 MG/ML VIAL ONE; -Famotidine IV* 10 MG/ML 2 ML (20 mg) IV ONE; -Famotidine IV* 10 MG/ML 2 ML (20 mg) ONE; -HYDROcodone/ACETAMIN 5-325 MG* 1 TAB PO PRN; +Ketamine HCL 50 mg/ml 10 ml VIAL (500 MG) ONE; -Lactated Ringers 1000 ML Bag* 1,000 ML IV SCH; +Lactated Ringers 1000 ml BAG 1,000 ML IV SCH; -Lidocaine 1% INJ* 10 MG/ML 30 ML SDV ONE; -Lidocaine 2% PF * 5 ML VIAL ONE; +Lidocaine 2% PF 10 ML AMP ONE; +Lidocaine 2% PF 5 ML VIAL ONE; -Midazolam* 1 MG/ML 5 ML VIAL (5 MG) ONE; -Naloxone* 0.4 MG/ML 1 ML VIAL IV PRN; -Ondansetron INJ* 2 MG/ML VIAL ONE; -Phenylephrine 40 MCG/ML SYRINGE ONE; +Propofol 10 MG/ML 20 ML BTL ONE; -Propofol* 10 MG/ML 20 ML BTL ONE; -Succinylcholine* 20 MG/ML 10 ML VIAL ONE; -fentaNYL* 50 MCG/ML 2 ML VIAL (100 MCG VIAL) ONE; -oxyCODONE/Acetamin 5/325 MG* TAB ONE
[2020-09-11] MEDS ORDERED: ceFAZolin 2 GM PREMIX 2 GM/50 ML BAG ONE (08:46)
[2020-09-11] MEDS ORDERED: Ropivacaine 5 MG/ML 20 ML VIAL 0.5% (100 MG) ONE (09:12)
[2020-09-11] MEDS ORDERED: Midazolam 5 mg/5 ml VIAL 1 mg/ml 5 ml VIAL (5 mg) ONE (09:21)
[2020-09-11] MEDS ORDERED: fentaNYL 100 mcg/2 ml 50 MCG/ML VIAL ONE (09:21)
[2020-09-11] MEDS ORDERED: Buffered Lidocaine 1% SYRIN 1 ml INTRADERM ONE (09:23)
[2020-09-11] MEDS ORDERED: Dexamethasone IV 4 MG/ML VIAL 1 ml VIAL ONE (10:39)
[2020-09-11] MEDS ORDERED: Ondansetron 4 mg VIAL 2 MG/ML 2 ml VIAL ONE (10:40)
[2020-09-11] MEDS ORDERED: Acetaminophen IV 1 GM/100ML 100 ML ONE (10:40)
[2020-09-11] MEDS ORDERED: Ondansetron ODT 4 mg TAB 4 MG TAB PO PRN (12:41)
[2020-09-11] MEDS ORDERED: Ondansetron 4 mg VIAL 2 MG/ML 2 ml VIAL IV PRN (12:41)
[2020-09-11] MEDS ORDERED: diPHENhydraMINE IV 50 MG/ML 1 ml VIAL (BENADRYL) IV PRN (12:41)
[2020-09-11] MEDS ORDERED: Magnesium Hydroxide LIQ 30 ML UDC PO PRN (12:41)
[2020-09-11] MEDS ORDERED: diPHENhydraMINE 25 mg TAB PO PRN (12:41)
[2020-09-11] MEDS ORDERED: Morphine ER 30 mg TAB ** extended release PO SCH (13:00)
[2020-09-11] MEDS: Lactated Ringers 1000 ml BAG 1,000 ML IV SCH (14:03)
[2020-09-11] MEDS ORDERED: Morphine ER 30 mg TAB ** extended release ONE (14:08)
[2020-09-11] MEDS: Morphine 2 MG/ML SYRINGE IV PRN (14:09)
[2020-09-11] MEDS: oxyCODONE/Acetamin 5/325 mg TAB PO PRN ×2 (15:10→20:17)
[2020-09-11] MEDS: ceFAZolin 1 GM ADVAN 1 GM in NS 0.9% 50 ML 50 ML IVPB SCH (20:18)
[2020-09-11] MEDS: Magnesium Hydroxide LIQ 30 ML UDC PO SCH (20:35)
[2020-09-12] MEDS: Morphine ER 30 mg TAB ** extended release PO SCH ×3 (00:02→21:06)
[2020-09-12] MEDS: Morphine 2 MG/ML SYRINGE IV PRN (00:19)
[2020-09-12] MEDS: Lactated Ringers 1000 ml BAG 1,000 ML IV SCH (00:24)
[2020-09-12] MEDS: oxyCODONE/Acetamin 5/325 mg TAB PO PRN ×3 (02:16→11:27)
[2020-09-12] MEDS: ceFAZolin 1 GM ADVAN 1 GM in NS 0.9% 50 ML 50 ML IVPB SCH ×2 (03:50→11:23)
[2020-09-12 05:26] LABS: Hematocrit 35 % (35-47); Hemoglobin 11.7 g/dL (12.0-16.0); Mean Platelet Volume 8.8 fL (7.4-10.4); Platelet Count 226 10^3/uL (150-450)
[2020-09-12 05:43] LABS: Calcium 8.9 mg/dL (8.6-10.3); EGFR Non-African American 78.5 (>60); Potassium 4.1 mmol/L (3.5-5.0)
[2020-09-12] MEDS: Magnesium Hydroxide LIQ 30 ML UDC PO SCH ×2 (08:39→21:06)
[2020-09-12] MEDS: DULoxetine DR 60 mg CAP PO SCH (08:40)
[2020-09-12] MEDS: Vitamin THERAPEUTIC TAB PO SCH (08:40)
[2020-09-12] MEDS ORDERED: HYDROcodone/ACETAMIN 5/325 mg TAB PO PRN ×2 (15:38)
[2020-09-12] MEDS: Lactulose 30 ml UDC PO PRN (16:29)
[2020-09-13] MEDS: oxyCODONE/Acetamin 5/325 mg TAB PO PRN ×3 (03:41→12:43)
[2020-09-13 05:35] LABS: Hematocrit 34 % (35-47); Hemoglobin 11.2 g/dL (12.0-16.0); Mean Platelet Volume 8.8 fL (7.4-10.4); Platelet Count 220 10^3/uL (150-450)
[2020-09-13] MEDS: Lactulose 30 ml UDC PO PRN (07:31)
[2020-09-13] MEDS: DULoxetine DR 60 mg CAP PO SCH (08:39)
[2020-09-13] MEDS: Morphine ER 30 mg TAB ** extended release PO SCH (08:40)
[2020-09-13] MEDS: Vitamin THERAPEUTIC TAB PO SCH (08:40)
[2020-09-13] MEDS: Magnesium Hydroxide LIQ 30 ML UDC PO SCH (08:40)
[2020-09-13 11:34] VITALS: BP 110/78
== END 2020-09-13 13:50 | disposition home or self-care (01) ==
LOC: SSU 08:33 → OR 08:33
PROVIDERS: ADMIT Orthopaedic Surgery Adult Reconstructive Orthopaedic Surgery; ATTEND Orthopaedic Surgery Adult Reconstructive Orthopaedic Surgery

== ENCOUNTER 2023-02-06 06:46 | Observation (INO) ==
[~2023-02-06 06:46] MED LIST changes: -Bupivacaine 0.25% SDV 30 ML ONE; -Bupivacaine 0.5% SDV PF 30ML VIAL ONE; -Ketamine HCL 50 mg/ml 10 ml VIAL (500 MG) ONE; -Lidocaine 2% PF 10 ML AMP ONE; -Lidocaine 2% PF 5 ML VIAL ONE; -Propofol 10 MG/ML 20 ML BTL ONE
[2023-02-06] MEDS ORDERED: Midazolam 2 mg/2 ml VIAL 1 mg/ml 2 ml VIAL (2 mg) ONE ×2 (07:06→08:03)
[2023-02-06] MEDS ORDERED: ceFAZolin 2 GM in NS PREMIX 2 GM/100 ML BAG IVPB ONE (07:23)
[2023-02-06] MEDS ORDERED: Tranexamic Acid 1 GM/100ML BAG 2,000 MG/200 ML BAG IV ONE (07:23)
[2023-02-06] MEDS ORDERED: ROPIVACAINE 5 MG/ML 30 ML BTL (0.5%) ONE ×2 (07:36→08:01)
[2023-02-06 07:47] LABS: Rapid COVID-19 Molecular Undetected (Undetected)
[2023-02-06] MEDS ORDERED: Dexamethasone IV 4 MG/ML VIAL 1 ml VIAL ONE (07:48)
[2023-02-06] MEDS ORDERED: Naloxone 0.4 mg VIAL 0.4 mg/ml 1 ml VIAL IV PRN (07:54)
[2023-02-06] MEDS ORDERED: HYDROmorphone 1 MG/1 ML SYRINGE IV PRN (07:54)
[2023-02-06] MEDS ORDERED: Acetaminophen IV 1 GM/100ML 1,000 MG/100 ML BAG IV PRN (07:54)
[2023-02-06] MEDS ORDERED: fentaNYL 100 mcg/2 ml 50 MCG/ML VIAL IV PRN (07:54)
[2023-02-06] MEDS ORDERED: Ondansetron 4 mg VIAL 2 MG/ML 2 ml VIAL IV PRN ×2 (07:54→11:12)
[2023-02-06] MEDS ORDERED: Phenylephrine IV 10 MG/ML 1 ml VIAL ONE (08:03)
[2023-02-06] MEDS ORDERED: Propofol 10 MG/ML 20 ML BTL ONE (08:03)
[2023-02-06] MEDS ORDERED: Lidocaine 2% PF 5 ML VIAL ONE (08:03)
[2023-02-06] MEDS ORDERED: fentaNYL 100 mcg/2 ml 50 MCG/ML VIAL ONE ×2 (08:03→10:31)
[2023-02-06] MEDS ORDERED: Rocuronium 50 mg VIAL 10 mg/ml 5 ml VIAL (50 mg) ONE (08:03)
[2023-02-06] MEDS ORDERED: Ondansetron 4 mg VIAL 2 MG/ML 2 ml VIAL ONE (08:42)
[2023-02-06] MEDS ORDERED: Ondansetron ODT 4 mg TAB 4 MG TAB PO PRN (11:12)
[2023-02-06] MEDS ORDERED: Lactulose 30 ml UDC PO PRN (11:12)
[2023-02-06] MEDS ORDERED: Magnesium Hydroxide LIQ 30 ML UDC PO PRN (11:12)
[2023-02-06] MEDS: Lactated Ringers 1000 ml BAG 1,000 ML IV SCH ×2 (12:46→23:31)
[2023-02-06] MEDS: Morphine ER 15 mg TAB ** extended release PO SCH (14:15)
[2023-02-06] MEDS: ceFAZolin 1 GM ADVAN 1 GM in NS 0.9% 50 ML 50 ML IVPB SCH (16:32)
[2023-02-06] MEDS: Magnesium Hydroxide LIQ 30 ML UDC PO SCH (20:29)
[2023-02-06] MEDS ORDERED: Naloxone 0.4 mg VIAL 0.4 mg/ml 1 ml VIAL IV PUSH PRN (20:49)
[2023-02-07] MEDS: Morphine ER 15 mg TAB ** extended release PO SCH ×2 (00:34→11:32)
[2023-02-07] MEDS: ceFAZolin 1 GM ADVAN 1 GM in NS 0.9% 50 ML 50 ML IVPB SCH ×2 (00:37→08:42)
[2023-02-07 07:05] LABS: Hematocrit 34.1 % (35-45); Hemoglobin 11.3 g/dL (11.5-14.3); Mean Platelet Volume 8.5 fL (7.5-11.2); Platelet Count 271 10^3/uL (150-450)
[2023-02-07 08:26] LABS: Calcium 8.6 mg/dL (8.6-10.3); Creatinine, Serum 0.69 mg/dL (0.51-0.95); Potassium 3.8 mmol/L (3.5-5.0); eGFR CKD-EPI 93.9 (>60)
[2023-02-07] MEDS: Magnesium Hydroxide LIQ 30 ML UDC PO SCH (08:45)
[2023-02-07] MEDS ORDERED: Vitamin THERAPEUTIC TAB PO SCH (09:00)
[2023-02-07] MEDS ORDERED: DULoxetine DR 60 mg CAP PO SCH (09:00)
[2023-02-07] MEDS ORDERED: Cholecalciferol (VIT D3) 1,000 unit TAB PO SCH (09:00)
[2023-02-07 10:37] VITALS: BP 109/68
== END 2023-02-07 11:50 | disposition home or self-care (01) ==
LOC: OR 06:46 → SSU 12:43 → INTOOBSV 12:43
PROVIDERS: ADMIT Orthopaedic Surgery Adult Reconstructive Orthopaedic Surgery; ATTEND Orthopaedic Surgery Adult Reconstructive Orthopaedic Surgery